=== PATIENT | male | born 1950 | race Caucasian/White ===

== ENCOUNTER 2020-10-04 07:11 | Outpatient (REF) | payer OTHER, SELFPAY ==
[2020-10-04 07:51] LABS: MANUAL DIFF FLAG NO
[2020-10-04 07:54] LABS: Basophils Absolute Auto 0.1 X10*3/uL (0.0-0.2); Basophils Percent Auto 0.9 % (0-2); Eosinophils Absolute Auto 0.3 X10*3/uL (0.0-0.4); Hematocrit 38.7 % (42-52); Hemoglobin 12.8 g/dl (14.0-18.0); Imm Gran Abs Auto 0.02 X10*3/uL (0.00-0.03); Imm Gran Pct Auto 0.3 % (0.0-0.4); Lymphocytes Absolute Auto 1.5 X10*3/uL (1.2-4.9); Mean Corpuscular HGB Conc 33.1 g/dl (31.0-36.0); Mean Corpuscular Hemoglobin 30.5 pg (27.0-33.0); Mean Corpuscular Volume 92.4 fL (80-98); Mean Platelet Volume 10.8 fL (9.4-12.4); Monocytes Absolute Auto 0.9 X10*3/uL (0.1-1.2); Monocytes Percent Auto 12.9 % (2-11); Neutrophils Absolute Auto 4.2 X10*3/uL (2.0-8.3); Neutrophils Percent Auto 59.9 % (45-73); Platelet Count 238 X10*3/uL (160-400); Red Blood Count 4.19 X10*6/uL (4.60-5.80); Red Cell Distribution Width 18.4 % (11.0-16.0)
[2020-10-04 07:57] LABS: Glucose Urine UA NEG (NEG); Leukocyte Esterase Urine NEG (NEG); Nitrite Urine NEG (NEG); PH 7.5 (5.0-8.0); Urine Blood NEG (NEG); Urine Ketones NEG (NEG); Urine Protein NEG (NEG-TRACE)
[2020-10-04 08:00] LABS: Appearance Urine CLEAR; Color Urine YELLOW
[2020-10-04 08:18] LABS: Alanine Aminotransferase 19 U/L (0-40); Alkaline Phosphatase 50 U/L (39-117); Anion Gap 12 (12-20); Aspartate Amino Transferase 26 U/L (5-37); Bilirubin Total 0.8 mg/dL (0.0-1.0); Blood Urea Nitrogen 14 mg/dL (9-16); Calcium 8.8 mg/dL (8.4-10.2); Carbon Dioxide 26 mmol/L (22-29); Chloride 103 mmol/L (96-108); Cholesterol 137 mg/dL; Estimated Glomerular Filt Rate > 60; Glucose Fasting 83 mg/dL (60-99); HDL Cholesterol 35 mg/dL; Iron 82 mcg/dL (45-160); LDL Cholesterol Calculated 79 mg/dl; Percent Iron Saturation 22 % (15-50); Sodium 136 mmol/L (135-145); Total Iron Binding Capacity 371 mcg/dL (228-428); Total Protein 6.7 g/dL (6.5-8.0); Triglycerides 118 mg/dL; Unsaturated Iron Binding 289 ug/dL
[2020-10-04 08:41] LABS: TSH reflex Free T4 2.36 mIU/mL (0.32-4.0); Vitamin D 25-OH Total 26.4 ng/mL (>30)
== END 2020-10-04 07:12 | disposition home or self-care (01) ==
LOC: HO.LAB 07:11
PROVIDERS: Visit Provider Internal Medicine
DX: E78.00 Pure hypercholesterolemia, unspecified (principal); I10 Essential (primary) hypertension; D50.9 Iron deficiency anemia, unspecified; I48.91 Unspecified atrial fibrillation; K21.9 Gastro-esophageal reflux disease without esophagitis; E55.9 Vitamin D deficiency, unspecified; E66.01 Morbid (severe) obesity due to excess calories
CPT/HCPCS: 36415; 80053; 80061; 81003; 82306; 83540; 84443; 85025

== ENCOUNTER 2021-03-14 07:12 | Outpatient (REF) | payer OTHER, SELFPAY ==
[2021-03-14 08:16] LABS: MANUAL DIFF FLAG NO
[2021-03-14 08:20] LABS: Basophils Absolute Auto 0.1 X10*3/uL (0.0-0.2); Basophils Percent Auto 1.3 % (0-2); Eosinophils Absolute Auto 0.3 X10*3/uL (0.0-0.4); Eosinophils Percent Auto 3.9 % (0-4); Hematocrit 43.2 % (42-52); Hemoglobin 14.2 g/dl (14.0-18.0); Imm Gran Abs Auto 0.04 X10*3/uL (0.00-0.03); Imm Gran Pct Auto 0.6 % (0.0-0.4); Lymphocytes Absolute Auto 1.3 X10*3/uL (1.2-4.9); Lymphocytes Percent Auto 20.5 % (20-40); Mean Corpuscular HGB Conc 32.9 g/dl (31.0-36.0); Mean Corpuscular Hemoglobin 31.1 pg (27.0-33.0); Mean Corpuscular Volume 94.7 fL (80-98); Mean Platelet Volume 11.1 fL (9.4-12.4); Monocytes Absolute Auto 0.7 X10*3/uL (0.1-1.2); Neutrophils Percent Auto 62.7 % (45-73); Platelet Count 248 X10*3/uL (160-400); Red Blood Count 4.56 X10*6/uL (4.60-5.80); Red Cell Distribution Width 14.3 % (11.0-16.0); White Blood Count 6.4 X10*3/uL (4.8-10.8)
[2021-03-14 08:41] LABS: Alanine Aminotransferase 18 U/L (0-40); Albumin Level 4.2 g/dL (3.5-5.0); Alkaline Phosphatase 47 U/L (39-117); Anion Gap 15 (12-20); Aspartate Amino Transferase 30 U/L (5-37); Bilirubin Total 0.9 mg/dL (0.0-1.0); Blood Urea Nitrogen 12 mg/dL (9-16); Calcium 9.2 mg/dL (8.4-10.2); Carbon Dioxide 26 mmol/L (22-29); Chloride 105 mmol/L (96-108); Cholesterol 163 mg/dL; Estimated Glomerular Filt Rate > 60; Glucose Fasting 91 mg/dL (60-99); HDL Cholesterol 40 mg/dL; Iron 88 mcg/dL (45-160); LDL Cholesterol Calculated 90 mg/dl; Percent Iron Saturation 22 % (15-50); Potassium 4.8 mmol/L (3.3-5.1); Sodium 141 mmol/L (135-145); Total Iron Binding Capacity 392 mcg/dL (228-428); Total Protein 7.2 g/dL (6.5-8.0); Triglycerides 166 mg/dL; Unsaturated Iron Binding 304 ug/dL
[2021-03-14 08:41] LABS: Glucose Urine UA NEG (NEG); Leukocyte Esterase Urine NEG (NEG); Nitrite Urine NEG (NEG); PH 6.5 (5.0-8.0); Urine Blood NEG (NEG); Urine Ketones NEG (NEG); Urine Protein NEG (NEG-TRACE)
[2021-03-14 08:47] LABS: Appearance Urine CLEAR; Color Urine YELLOW
[2021-03-14 09:04] LABS: TSH reflex Free T4 1.66 uIU/mL (0.32-4.0); Vitamin D 25-OH Total 34.7 ng/mL (>30)
== END 2021-03-14 07:13 | disposition home or self-care (01) ==
LOC: HO.LAB 07:12
PROVIDERS: PCP Internal Medicine; Visit Provider Internal Medicine
DX: I10 Essential (primary) hypertension (principal); I48.0 Paroxysmal atrial fibrillation; E66.9 Obesity, unspecified; E78.00 Pure hypercholesterolemia, unspecified; D50.9 Iron deficiency anemia, unspecified; K21.9 Gastro-esophageal reflux disease without esophagitis; E55.9 Vitamin D deficiency, unspecified
CPT/HCPCS: 36415; 80053; 80061; 81003; 82306; 83540; 84443; 85025

== ENCOUNTER 2021-07-25 07:34 | Outpatient (REF) | payer OTHER, SELFPAY ==
[2021-07-25 08:16] LABS: MANUAL DIFF FLAG NO
[2021-07-25 08:27] LABS: Basophils Absolute Auto 0.1 X10*3/uL (0.0-0.2); Basophils Percent Auto 0.9 % (0-2); Eosinophils Absolute Auto 0.3 X10*3/uL (0.0-0.4); Eosinophils Percent Auto 3.5 % (0-4); Hematocrit 40.7 % (42-52); Hemoglobin 13.3 g/dl (14.0-18.0); Imm Gran Abs Auto 0.05 X10*3/uL (0.00-0.03); Imm Gran Pct Auto 0.7 % (0.0-0.4); Lymphocytes Absolute Auto 1.6 X10*3/uL (1.2-4.9); Mean Corpuscular HGB Conc 32.7 g/dl (31.0-36.0); Mean Corpuscular Hemoglobin 31.2 pg (27.0-33.0); Mean Corpuscular Volume 95.5 fL (80-98); Mean Platelet Volume 11.1 fL (9.4-12.4); Monocytes Percent Auto 13.6 % (2-11); Neutrophils Absolute Auto 4.4 X10*3/uL (2.0-8.3); Neutrophils Percent Auto 60.3 % (45-73); Platelet Count 227 X10*3/uL (160-400); Red Blood Count 4.26 X10*6/uL (4.60-5.80); White Blood Count 7.4 X10*3/uL (4.8-10.8)
[2021-07-25 08:49] LABS: Alanine Aminotransferase 16 U/L (0-40); Alkaline Phosphatase 43 U/L (39-117); Anion Gap 12 (12-20); Aspartate Amino Transferase 23 U/L (5-37); Bilirubin Total 0.5 mg/dL (0.0-1.0); Blood Urea Nitrogen 12 mg/dL (9-16); Calcium 9.3 mg/dL (8.4-10.2); Carbon Dioxide 26 mmol/L (22-29); Chloride 107 mmol/L (96-108); Cholesterol 154 mg/dL; Estimated Glomerular Filt Rate > 60; Glucose Fasting 91 mg/dL (60-99); HDL Cholesterol 39 mg/dL; LDL Cholesterol Calculated 75 mg/dl; Potassium 5.4 mmol/L (3.3-5.1); Sodium 140 mmol/L (135-145); Total Protein 6.7 g/dL (6.5-8.0); Triglycerides 202 mg/dL
[2021-07-25 09:12] LABS: TSH reflex Free T4 2.88 uIU/mL (0.32-4.0); Vitamin D 25-OH Total 30.3 ng/mL (>30)
[2021-07-25 09:47] LABS: Appearance Urine CLEAR; Color Urine YELLOW; Glucose Urine UA NEG (NEG); Leukocyte Esterase Urine NEG (NEG); Nitrite Urine NEG (NEG); Specific Gravity - Urine 1.015 (1.005-1.025); Urine Blood NEG (NEG); Urine Ketones NEG (NEG); Urine Protein NEG (NEG-TRACE)
== END 2021-07-25 07:35 | disposition home or self-care (01) ==
LOC: HO.LAB 07:34
PROVIDERS: PCP Internal Medicine; Visit Provider Internal Medicine
DX: E55.9 Vitamin D deficiency, unspecified (principal); I10 Essential (primary) hypertension; E78.00 Pure hypercholesterolemia, unspecified; E66.9 Obesity, unspecified; I48.0 Paroxysmal atrial fibrillation; K21.9 Gastro-esophageal reflux disease without esophagitis; D50.8 Other iron deficiency anemias
CPT/HCPCS: 36415; 80053; 80061; 81003; 82306; 84443; 85025

== ENCOUNTER 2021-11-21 07:23 | Outpatient (REF) | payer OTHER, SELFPAY ==
[2021-11-21 07:34] LABS: MANUAL DIFF FLAG NO
[2021-11-21 08:20] LABS: Basophils Absolute Auto 0.1 X10*3/uL (0.0-0.2); Basophils Percent Auto 0.8 % (0-2); Eosinophils Absolute Auto 0.2 X10*3/uL (0.0-0.4); Eosinophils Percent Auto 2.2 % (0-4); Hematocrit 39.1 % (42.0-52.0); Hemoglobin 12.6 g/dl (14.0-18.0); Imm Gran Abs Auto 0.07 X10*3/uL (0.00-0.03); Imm Gran Pct Auto 0.8 % (0.0-0.4); Lymphocytes Absolute Auto 1.3 X10*3/uL (1.2-4.9); Lymphocytes Percent Auto 15.6 % (20-40); Mean Corpuscular HGB Conc 32.2 g/dl (31.0-36.0); Mean Corpuscular Volume 96.1 fL (80.0-98.0); Mean Platelet Volume 11.1 fL (9.4-12.4); Monocytes Absolute Auto 0.9 X10*3/uL (0.1-1.2); Monocytes Percent Auto 10.4 % (2-11); Neutrophils Percent Auto 70.2 % (45-73); Platelet Count 247 X10*3/uL (160-400); Red Blood Count 4.07 X10*6/uL (4.60-5.80); Red Cell Distribution Width 15.3 % (11.0-16.0); White Blood Count 8.5 X10*3/uL (4.8-10.8)
[2021-11-21 08:40] LABS: Alanine Aminotransferase 17 U/L (0-40); Albumin Level 3.8 g/dL (3.5-5.0); Alkaline Phosphatase 43 U/L (39-117); Anion Gap 13 (12-20); Aspartate Amino Transferase 21 U/L (5-37); Bilirubin Total 0.7 mg/dL (0.0-1.0); Blood Urea Nitrogen 14 mg/dL (9-16); Calcium 9.2 mg/dL (8.4-10.2); Carbon Dioxide 26 mmol/L (22-29); Chloride 104 mmol/L (96-108); Cholesterol 159 mg/dL; Estimated Glomerular Filt Rate > 60; Glucose Fasting 89 mg/dL (60-99); HDL Cholesterol 42 mg/dL; LDL Cholesterol Calculated 91 mg/dl; Potassium 4.9 mmol/L (3.3-5.1); Sodium 138 mmol/L (135-145); Total Protein 6.6 g/dL (6.5-8.0); Triglycerides 133 mg/dL
[2021-11-21 09:04] LABS: TSH reflex Free T4 2.97 uIU/mL (0.32-4.0); Vitamin D 25-OH Total 32.3 ng/mL (>30)
[2021-11-21 09:10] LABS: Appearance Urine CLEAR; Color Urine YELLOW; Glucose Urine UA NEG (NEG); Leukocyte Esterase Urine NEG (NEG); Nitrite Urine NEG (NEG); PH 6.5 (5.0-8.0); Urine Blood NEG (NEG); Urine Ketones NEG (NEG); Urine Protein NEG (NEG-TRACE)
== END 2021-11-21 07:24 | disposition home or self-care (01) ==
LOC: HO.LAB 07:23
PROVIDERS: Visit Provider Internal Medicine
DX: E55.9 Vitamin D deficiency, unspecified (principal); I10 Essential (primary) hypertension; E78.00 Pure hypercholesterolemia, unspecified
CPT/HCPCS: 36415; 80053; 80061; 81003; 82306; 84443; 85025

== ENCOUNTER 2022-03-20 08:18 | Outpatient (REF) | payer OTHER, SELFPAY ==
[2022-03-20 08:39] LABS: MANUAL DIFF FLAG NO
[2022-03-20 09:21] LABS: Appearance Urine CLEAR; Color Urine YELLOW; Glucose Urine UA NEG (NEG); Leukocyte Esterase Urine NEG (NEG); Nitrite Urine NEG (NEG); Specific Gravity - Urine 1.015 (1.005-1.025); Urine Blood NEG (NEG); Urine Ketones NEG (NEG); Urine Protein NEG (NEG-TRACE)
[2022-03-20 09:24] LABS: Basophils Absolute Auto 0.1 X10*3/uL (0.0-0.2); Basophils Percent Auto 1.1 % (0-2); Eosinophils Absolute Auto 0.2 X10*3/uL (0.0-0.4); Eosinophils Percent Auto 3.9 % (0-4); Hematocrit 39.2 % (42.0-52.0); Hemoglobin 12.7 g/dl (14.0-18.0); Imm Gran Abs Auto 0.03 X10*3/uL (0.00-0.03); Imm Gran Pct Auto 0.5 % (0.0-0.4); Lymphocytes Absolute Auto 1.3 X10*3/uL (1.2-4.9); Lymphocytes Percent Auto 23.5 % (20-40); Mean Corpuscular HGB Conc 32.4 g/dl (31.0-36.0); Mean Corpuscular Volume 92.5 fL (80.0-98.0); Mean Platelet Volume 11.7 fL (9.4-12.4); Monocytes Absolute Auto 0.8 X10*3/uL (0.1-1.2); Monocytes Percent Auto 13.9 % (2-11); Neutrophils Absolute Auto 3.3 x10*3/uL (2.0-8.3); Neutrophils Percent Auto 57.1 % (45-73); Platelet Count 214 X10*3/uL (160-400); Red Blood Count 4.24 X10*6/uL (4.60-5.80); Red Cell Distribution Width 15.8 % (11.0-16.0); White Blood Count 5.7 X10*3/uL (4.8-10.8)
[2022-03-20 09:39] LABS: Alanine Aminotransferase 20 U/L (0-40); Albumin Level 3.8 g/dL (3.5-5.0); Alkaline Phosphatase 43 U/L (39-117); Anion Gap 13 (12-20); Aspartate Amino Transferase 24 U/L (5-37); Bilirubin Total 0.7 mg/dL (0.0-1.0); Blood Urea Nitrogen 12 mg/dL (9-16); Carbon Dioxide 24 mmol/L (22-29); Chloride 107 mmol/L (96-108); Cholesterol 150 mg/dL; Estimated Glomerular Filt Rate > 60; Glucose Fasting 91 mg/dL (60-99); HDL Cholesterol 37 mg/dL; LDL Cholesterol Calculated 80 mg/dl; Potassium 4.8 mmol/L (3.3-5.1); Sodium 139 mmol/L (135-145); Total Protein 6.8 g/dL (6.5-8.0); Triglycerides 165 mg/dL
[2022-03-20 09:58] LABS: TSH reflex Free T4 2.72 uIU/mL (0.32-4.0); Vitamin D 25-OH Total 33.3 ng/mL (>30)
== END 2022-03-20 08:19 | disposition home or self-care (01) ==
LOC: HO.LAB 08:18
PROVIDERS: PCP Internal Medicine; Visit Provider Internal Medicine
DX: E78.00 Pure hypercholesterolemia, unspecified (principal); E55.9 Vitamin D deficiency, unspecified; I10 Essential (primary) hypertension
CPT/HCPCS: 36415; 80053; 80061; 81003; 82306; 84443; 85025

== ENCOUNTER 2022-08-21 06:57 | Outpatient (REF) | payer OTHER, SELFPAY ==
[2022-08-21 07:10] LABS: MANUAL DIFF FLAG NO
[2022-08-21 08:25] LABS: Basophils Absolute Auto 0.1 X10*3/uL (0.0-0.2); Basophils Percent Auto 1.2 % (0-2); Eosinophils Absolute Auto 0.2 X10*3/uL (0.0-0.4); Eosinophils Percent Auto 3.5 % (0-4); Imm Gran Abs Auto 0.04 X10*3/uL (0.00-0.03); Imm Gran Pct Auto 0.7 % (0.0-0.4); Lymphocytes Absolute Auto 1.2 X10*3/uL (1.2-4.9); Lymphocytes Percent Auto 21.2 % (20-40); Mean Corpuscular HGB Conc 32.4 g/dl (31.0-36.0); Mean Corpuscular Hemoglobin 29.5 pg (27.0-33.0); Mean Corpuscular Volume 90.9 fL (80.0-98.0); Mean Platelet Volume 10.9 fL (9.4-12.4); Monocytes Absolute Auto 0.8 X10*3/uL (0.1-1.2); Monocytes Percent Auto 13.6 % (2-11); Neutrophils Absolute Auto 3.4 x10*3/uL (2.0-8.3); Neutrophils Percent Auto 59.8 % (45-73); Platelet Count 250 X10*3/uL (160-400); Red Blood Count 4.07 X10*6/uL (4.60-5.80); Red Cell Distribution Width 15.7 % (11.0-16.0); White Blood Count 5.7 X10*3/uL (4.8-10.8)
[2022-08-21 09:14] LABS: Alanine Aminotransferase 15 U/L (0-40); Albumin Level 3.9 g/dL (3.5-5.0); Alkaline Phosphatase 44 U/L (39-117); Anion Gap 14 (12-20); Aspartate Amino Transferase 21 U/L (5-37); Bilirubin Total 0.5 mg/dL (0.0-1.0); Blood Urea Nitrogen 13 mg/dL (9-16); Calcium 8.8 mg/dL (8.4-10.2); Carbon Dioxide 26 mmol/L (22-29); Chloride 105 mmol/L (96-108); Cholesterol 150 mg/dL; Estimated Glomerular Filt Rate > 60; Glucose Fasting 83 mg/dL (60-99); HDL Cholesterol 44 mg/dL; LDL Cholesterol Calculated 75 mg/dl; Potassium 5.3 mmol/L (3.3-5.1); Sodium 140 mmol/L (135-145); Total Protein 6.7 g/dL (6.5-8.0); Triglycerides 155 mg/dL
[2022-08-21 09:41] LABS: Vitamin D 25-OH Total 36.6 ng/mL (>30)
[2022-08-21 10:05] LABS: Appearance Urine Clear; Color Urine Yellow; Glucose Urine UA Negative (Negative); Leukocyte Esterase Urine Negative (Negative); Nitrite Urine Negative (Negative); Urine Blood Negative (Negative); Urine Ketones Negative (Negative); Urine Protein Negative (Neg-Trace)
== END 2022-08-21 06:58 | disposition home or self-care (01) ==
LOC: HO.LAB 06:57
PROVIDERS: Visit Provider Internal Medicine
DX: I10 Essential (primary) hypertension (principal); E78.00 Pure hypercholesterolemia, unspecified; E55.9 Vitamin D deficiency, unspecified
CPT/HCPCS: 36415; 80053; 80061; 81003; 82306; 84443; 85025

== ENCOUNTER 2022-12-27 07:06 | Outpatient (REF) | payer OTHER, SELFPAY ==
[2022-12-27 11:28] LABS: MANUAL DIFF FLAG NO
[2022-12-27 11:48] LABS: Basophils Absolute Auto 0.1 X10*3/uL (0.0-0.2); Basophils Percent Auto 0.8 % (0-2); Eosinophils Absolute Auto 0.3 X10*3/uL (0.0-0.4); Hematocrit 38.8 % (42.0-52.0); Hemoglobin 12.7 g/dl (14.0-18.0); Imm Gran Abs Auto 0.04 X10*3/uL (0.00-0.03); Imm Gran Pct Auto 0.5 % (0.0-0.4); Lymphocytes Absolute Auto 1.2 X10*3/uL (1.2-4.9); Mean Corpuscular HGB Conc 32.7 g/dl (31.0-36.0); Mean Corpuscular Hemoglobin 30.8 pg (27.0-33.0); Mean Corpuscular Volume 94.2 fL (80.0-98.0); Mean Platelet Volume 11.6 fL (9.4-12.4); Monocytes Percent Auto 11.5 % (2-11); Neutrophils Absolute Auto 5.8 x10*3/uL (2.0-8.3); Neutrophils Percent Auto 70.2 % (45-73); Platelet Count 293 X10*3/uL (160-400); Red Blood Count 4.12 X10*6/uL (4.60-5.80); Red Cell Distribution Width 15.1 % (11.0-16.0); White Blood Count 8.3 X10*3/uL (4.8-10.8)
[2022-12-27 12:08] LABS: Alanine Aminotransferase 15 U/L (0-40); Albumin Level 3.8 g/dL (3.5-5.0); Alkaline Phosphatase 43 U/L (39-117); Anion Gap 15 (12-20); Aspartate Amino Transferase 19 U/L (5-37); Bilirubin Total 0.7 mg/dL (0.0-1.0); Blood Urea Nitrogen 16 mg/dL (9-16); Calcium 9.1 mg/dL (8.4-10.2); Carbon Dioxide 26 mmol/L (22-29); Chloride 105 mmol/L (96-108); Cholesterol 168 mg/dL; Estimated Glomerular Filt Rate > 60; Glucose Fasting 96 mg/dL (60-99); HDL Cholesterol 44 mg/dL; LDL Cholesterol Calculated 93 mg/dl; Potassium 5.2 mmol/L (3.3-5.1); Sodium 141 mmol/L (135-145); Total Protein 6.6 g/dL (6.5-8.0); Triglycerides 158 mg/dL
[2022-12-27 12:29] LABS: TSH reflex Free T4 3.64 uIU/mL (0.32-4.0); Vitamin D 25-OH Total 35.3 ng/mL (>30)
== END 2022-12-27 07:07 | disposition home or self-care (01) ==
LOC: HO.HMGCLDS 07:06
PROVIDERS: Visit Provider Internal Medicine
DX: I10 Essential (primary) hypertension (principal); E55.9 Vitamin D deficiency, unspecified; E78.00 Pure hypercholesterolemia, unspecified
CPT/HCPCS: 36415; 80053; 80061; 82306; 84443; 85025

== ENCOUNTER 2023-06-11 07:04 | Outpatient (REF) | payer OTHER, SELFPAY ==
[2023-06-11 07:22] LABS: MANUAL DIFF FLAG NO
[2023-06-11 07:50] LABS: Basophils Absolute Auto 0.1 X10*3/uL (0.0-0.2); Basophils Percent Auto 1.5 % (0-2); Eosinophils Absolute Auto 0.2 X10*3/uL (0.0-0.4); Eosinophils Percent Auto 3.1 % (0-4); Hematocrit 39.3 % (42.0-52.0); Hemoglobin 12.7 g/dl (14.0-18.0); Imm Gran Abs Auto 0.02 X10*3/uL (0.00-0.03); Imm Gran Pct Auto 0.3 % (0.0-0.4); Lymphocytes Absolute Auto 1.2 X10*3/uL (1.2-4.9); Lymphocytes Percent Auto 17.7 % (20-40); Mean Corpuscular HGB Conc 32.3 g/dl (31.0-36.0); Mean Corpuscular Hemoglobin 30.6 pg (27.0-33.0); Mean Corpuscular Volume 94.7 fL (80.0-98.0); Monocytes Absolute Auto 0.9 X10*3/uL (0.1-1.2); Monocytes Percent Auto 14.2 % (2-11); Neutrophils Absolute Auto 4.1 x10*3/uL (2.0-8.3); Neutrophils Percent Auto 63.2 % (45-73); Platelet Count 244 X10*3/uL (160-400); Red Blood Count 4.15 X10*6/uL (4.60-5.80); Red Cell Distribution Width 14.8 % (11.0-16.0); White Blood Count 6.5 X10*3/uL (4.8-10.8)
[2023-06-11 08:24] LABS: Alanine Aminotransferase 17 U/L (0-40); Albumin Level 3.9 g/dL (3.5-5.0); Alkaline Phosphatase 42 U/L (39-117); Anion Gap 17 (12-20); Aspartate Amino Transferase 26 U/L (5-37); Bilirubin Total 0.7 mg/dL (0.0-1.0); Blood Urea Nitrogen 13 mg/dL (9-16); Calcium 9.3 mg/dL (8.4-10.2); Carbon Dioxide 22 mmol/L (22-29); Chloride 105 mmol/L (96-108); Cholesterol 150 mg/dL; Estimated Glomerular Filt Rate > 60; Glucose Fasting 92 mg/dL (60-99); HDL Cholesterol 37 mg/dL; LDL Cholesterol Calculated 78 mg/dl; Sodium 139 mmol/L (135-145); Total Protein 7.2 g/dL (6.5-8.0); Triglycerides 178 mg/dL
[2023-06-11 08:40] LABS: TSH reflex Free T4 3.26 uIU/mL (0.32-4.0); Vitamin D 25-OH Total 42.8 ng/mL (>30)
[2023-06-11 08:46] LABS: Appearance Urine Clear; Color Urine Yellow; Glucose Urine UA Negative (Negative); Leukocyte Esterase Urine Negative (Negative); Nitrite Urine Negative (Negative); Specific Gravity - Urine 1.015 (1.005-1.025); Urine Blood Negative (Negative); Urine Ketones Negative (Negative); Urine Protein Negative (Neg-Trace)
== END 2023-06-11 07:05 | disposition home or self-care (01) ==
LOC: HO.LAB 07:04
PROVIDERS: PCP Internal Medicine; Visit Provider Internal Medicine
DX: E78.00 Pure hypercholesterolemia, unspecified (principal); R30.0 Dysuria; E55.9 Vitamin D deficiency, unspecified; I10 Essential (primary) hypertension
CPT/HCPCS: 36415; 80053; 80061; 81003; 82306; 84443; 85025

== ENCOUNTER 2023-06-16 09:49 | Outpatient (AMB) | payer OTHER, SELFPAY ==
[2023-06-16 09:59] VITALS: BP 118/68; PULSE 63; O2SAT 98; BMI 39.9
--- NOTE | 2023-06-16 09:59 | MHC.PC.OV ---
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 Accompanied by: Self / Same As Patient Allergies No Known Allergies Allergy (Verified 06/16/23 10:38) Medication List - Last Reconciled 06/16/23 by Ronal Agosto MD atorvastatin 10 mg PO DAILY ciclopirox 0.77% 1 appl topical BID PRN diltiazem HCl 120 mg PO DAILY escitalopram oxalate 10 mg PO DAILY fenofibrate nanocrystallized 145 mg PO DAILY 90 days furosemide 20 mg PO DAILY lorazepam 0.5 mg PO BID PRN 30 days losartan 100 mg PO DAILY omeprazole 20 mg PO DAILY rivaroxaban (Xarelto) 20 mg PO DAILY sildenafil 50 mg PO DAILY PRN sotalol 120 mg PO BID 30 days zolpidem 10 mg PO BEDTIME PRN 30 days Tobacco use date assessed: 06/16/23 Fall risk assessment: No Falls in past year Last assessed Fall Risk: 06/16/23 Dental Screening Dental Screen Date: 06/16/23 Did you have a dental visit in the last 12 months?: Yes Did you have a dental problem in the last 6 months where you did not have access to dental care?: No Was dental information given to patient?: Patient has dentist HPI PAF, hyperlipidemia, HTN, OA HPI Details Patient comes in today for his follow up visit States that he feels okay He denies any headaches or dizziness Denies any chest pains, no SOB No nausea/vomiting, no abdominal pain No change in bowel habits noted Had his follow up labs done last week - to discuss his results [facility] Medical History Anxiety Benign essential hypertension Depression GERD (gastroesophageal reflux disease) GERD without esophagitis Insomnia Iron deficiency anemia Obesity (BMI 30-39.9) Paroxysmal atrial fibrillation Pure hypercholesterolemia Vitamin D deficiency Surgical History H/O right knee surgery History of arthroscopic surgery of shoulder (~02/01/22) History of colonoscopy History of shoulder surgery Family History Father Lung cancer Mother Afib Social History Housing: House Alcohol intake: current Alcohol intake frequency: 3 or more drinks per day Alcohol type: beer Patient Tobacco Use Status: Former Tobacco user Second Hand Smoke Exposure: Yes service: No Current occupational status: employed Cognitive needs: No Hearing needs: No Vision needs: No Questionnaire PHQ-9 Over the last 2 weeks, how often have you been bothered by any of the following problems? 1. Little interest or pleasure in doing things: not at all 2. Feeling down, depressed, or hopeless: not at all 3. Trouble falling or staying asleep, or sleeping too much: not at all 4. Feeling tired or having little energy: not at all 5. Poor appetite or overeating: not at all 6. Feeling bad about yourself - or that you are a failure or have let yourself or your family down: not at all 7. Trouble concentrating on things, such as reading the newspaper or watching television: not at all 8. Moving or speaking so slowly that other people could have noticed. Or the opposite - being so fidgety or restless that you have been moving around a lot more than usual: not at all 9. Thoughts that you would be better off or of hurting yourself in some way: not at all Total score: 0 Depression Screening Interpretation: Negative 55269 - PHQ-9 Billing: Yes Source: Developed by Drs. Rasta Ramachandran, Gisela Booth, Carlos Eduardo Delgado and colleagues, with an educational alvaro from [employer]. Thrive Questionnaire Date Thrive assessed: 06/16/23 I am a: Patient What is your living situation today?: I have a steady place to live Within the past 12 months, did the food you bought not last and you didn't have the money to get more?: Never true Within the past 12 months, did you worry whether your food would run out before you got money to buy more?: Never true Do you have trouble paying for medicines?: No Do you have trouble getting transportation to medical appointments?: No Do you have trouble paying your heating and electricity bill?: No Do you have trouble taking care of your child, family member or friend?: No Do you have trouble with day-to-day activities such as bathing, preparing meals, shopping, managing finances, etc.?: No Are you currently unemployed and looking for a job?: No Are you interested in more education?: No Please select the resources that you would like help with: None Currently or been in a relationship where the following occur: no concerns reported AUDIT C Alcohol Use Questionnaire (AUDIT-C) 1. How often do you have a drink containing alcohol?: 4 or more times a week 2. How many drinks containing alcohol do you have on a typical day when you are drinking?: 1 or 2 3. How often do you have six or more drinks on one occasion?: Never Total Score: 4 Score Reviewed/Action Taken: Yes ALLA-7 AMB Questionnaire ALLA-7 Date ALLA - 7 assessed: 06/16/23 Feeling nervous, anxious, or on edge: 0 = Not at all Not being able to stop or control worryin = Not at all Worrying too much about different things: 0 = Not at all Trouble relaxin = Not at all Being so restless that it is hard to sit still: 0 = Not at all Becoming easily annoyed or irritable: 0 = Not at all Feeling afraid as if something awful might happen: 0 = Not at all Total ALLA-7 score (0-4 normal; 5-9 mild; 10-14 moderate; 15-21 severe): 0 Source: Developed by Drs. Rasta Ramachandran, Gisela Booth, Carlos Eduardo Delgado and colleagues, with an educational alvaro from [employer]. ALLA-7 Assessment Billing ALLA-7 Assessment Tool: ALLA-7 Assessment 05570 Review of Systems Const Denies fatigue, Denies fever(s) and Denies headache(s) ENT Denies dysphagia, Denies dizziness, Denies otalgia, Denies headache(s) and Denies sore throat Card Denies chest pain, Denies palpitations and Denies dyspnea Resp Denies chest congestion, Denies cough, Denies dyspnea and Denies wheezing GI Denies abdominal pain, Denies constipation, Denies dysphagia, Denies heartburn, Denies diarrhea, Denies nausea and Denies vomiting Reports erectile dysfunction (lately), Denies dysuria, Denies nocturia and Denies urinary frequency Musc Denies arthralgias (right knee pain has improved with arthroscopic surgery a few months ago) Skin/Breast Denies rash Neuro Denies dizziness and Denies headache(s) Endo Denies fatigue and Denies palpitations Aller/Immun Denies wheezing Physical exam (Primary Care) Vital Signs: Last Vital Signs Pulse 63 06/16/23 09:59 BP 118/68 06/16/23 09:59 Pulse Ox 98 06/16/23 09:59 Oxygen Delivery Method Room Air 06/16/23 09:59 BMI result Body Mass Index 39.9 Tobacco/Smoking Status: Tobacco use Status Tobacco use date assessed 06/16/23 06/16/23 10:05 Patient Tobacco Use Status Former Tobacco user 06/16/23 10:05 PHQ-9: PHQ-9 Score PHQ-9: Total score 0 06/16/23 10:32 Depression Screening Interpretation: Negative Thrive Assessment: Date of Thrive Assessment Date Thrive assessed 06/16/23 06/16/23 10:05 Currently or been in a relationship where the following occur: no concerns reported Const General: no acute distress and alert HENMT Ears: TM's normal bilaterally and EAC's normal Throat: Yes posterior oropharynx normal and Yes tonsils normal (no TP congestion noted) Neck Neck: Yes no lymphadenopathy and Yes supple Resp Auscultation: clear to auscultation bilaterally, no rales and no wheezes Cardio Rate: regular rate Rhythm: regular rhythm Heart sounds: no murmurs GI Palpation (GI): Soft to palpation and nontender Auscultation: normal bowel sounds Extrem General: Yes no clubbing, cyanosis or edema Right lower extremity: knee Details: tenderness (minimal) Location: of the medial joint line; no swelling Results Reviewed Results Reviewed: Laboratory Tests 06/11/23 06/11/23 06/11/23 07:15 07:21 07:21 WBC 6.5 Hgb 12.7 L Hct 39.3 L Plt Count 244 Sodium 139 Potassium 5.0 Creatinine 0.86 Estimated GFR > 60 Fasting Glucose 92 Calcium 9.3 AST 26 ALT 17 Triglycerides 178 Cholesterol 150 LDL Cholesterol, Calc 78 HDL Cholesterol 37 25-OH Vitamin D Total 42.8 TSH 3.26 Ur Specific [place] 1.015 Urine Protein Negative Urine Glucose (UA) Negative Urine Blood Negative Assessment and Plan Assessment & Plan (1) Pure hypercholesterolemia: Code(s): E78.00 - Pure hypercholesterolemia, unspecified Plan: Results of his labs done last week reviewed and discussed with patient - lipids have improved from previous Reinforced low cholesterol diet Continue Atorvastatin 20 mg QD and Fenofibrate 145 mg QD Will recheck his labs in 4 months for follow up (2) Benign essential hypertension: Code(s): I10 - Essential (primary) hypertension Plan: Reinforced low sodium diet - goal is systolic BP of at least 130 mm or less Continue Losartan 50 mg QD; is also on Diltiazem ER 120 mg QD (helps with both his HTN and PAF) (3) Paroxysmal atrial fibrillation: Comment: S/P cardioversion with Dr. Chen at [facility] Code(s): I48.0 - Paroxysmal atrial fibrillation Plan: Patient currently remains in sinus rhythm on Diltiazem ER 120 mg QD Continue Xarelto 20 mg QD for thromboembolism prophylaxis (4) GERD without esophagitis: Code(s): K21.9 - Gastro-esophageal reflux disease without esophagitis Plan: Dietary restrictions reinforced Continue Omeprazole 20 mg QD (5) Right knee meniscal tear: Code(s): S83.206A - Unspecified tear of unspecified meniscus, current injury, right knee, initial encounter Qualifiers: Encounter type: sequela Meniscus of knee: medial Meniscus tear of knee type: unspecified type Tear current or old: current Qualified Code(s): S83.241S - Other tear of medial meniscus, current injury, right knee, sequela Plan: S/P arthroscopic meniscal surgery / repair on 09/08/2022 with significant improvement of his knee symptoms Follow up with [facility] as scheduled (6) Vitamin D deficiency: Code(s): E55.9 - Vitamin D deficiency, unspecified Plan: Corrected - continue Vitamin D3 2000 units QD (7) Iron deficiency anemia: Code(s): D50.9 - Iron deficiency anemia, unspecified Qualifiers: Iron deficiency anemia type: inadequate dietary iron intake Qualified Code(s): D50.8 - Other iron deficiency anemias Plan: Continue Feosol 200 mg QD Will continue to monitor his CBC regularly - advised that he is still slightly anemic but it does not appear to be due to iron deficiency - may be more likely to his being on oral anticoagulant (8) Erectile dysfunction: Code(s): N52.9 - Male erectile dysfunction, unspecified Qualifiers: Erectile dysfunction type: unspecified Qualified Code(s): N52.9 - Male erectile dysfunction, unspecified Plan: Continue Sildenafil 50 mg QD PRN (9) Insomnia: Code(s): G47.00 - Insomnia, unspecified Qualifiers: Insomnia type: unspecified Qualified Code(s): G47.00 - Insomnia, unspecified Plan: Sleep hygiene reinforced Continue Zolpidem 10 mg Q HS PRN (10) Anxiety: Code(s): F41.9 - Anxiety disorder, unspecified Plan: Continue Lorazepam 0.5 mg BID PRN (11) Depression: Code(s): F32.9 - Major depressive disorder, single episode, unspecified Qualifiers: Active/Remission status: currently active Depression Type: major depressive disorder Major depression episode severity: unspecified Major depression recurrence: recurrent Qualified Code(s): F33.9 - Major depressive disorder, recurrent, unspecified Plan: Continue Escitalopram 10 mg QD Has not been seeing psychiatry in a while now - feels that he is doing well on his current Rx and does not need to see psychiatry at this time States that he would like to try coming off his Rx if possible Instructed to try cutting his tablet in half and take 5 mg QD x 10 days, then D/C Advised that if he should start experiencing increasing symptoms of depression and/or anxiety over the next few months, then he should just go back on 10 mg QD; otherwise, if he continues to feel well months after he stops taking his Escitalopram, then he no longer needs to be on it (12) Obesity (BMI 30-39.9): Code(s): E66.9 - Obesity, unspecified Plan: Reinforced diet/exercise as tolerated/lose weight Plan Follow up in 4 months Orders: Orders Comprehensive [place]. Panel Fast 4 Months E78.00 - Pure hypercholesterolemia, unspecified Lipid Panel 4 Months E78.00 - Pure hypercholesterolemia, unspecified TSH reflex Free T4 4 Months E78.00 - Pure hypercholesterolemia, unspecified Vitamin D 25-OH Total 4 Months E55.9 - Vitamin D deficiency, unspecified Complete Blood Count Auto Diff 4 Months I10 - Essential (primary) hypertension UA CC w/rflx Micro + Cult 4 Months R30.0 - Dysuria Coding Level of Care Code Est Pt Level 4 (08334) Diagnoses Pure hypercholesterolemia E78.00 Benign essential hypertension I10 Paroxysmal atrial fibrillation I48.0 GERD without esophagitis K21.9 Right knee meniscal tear S83.241S Encounter type: sequela Meniscus of knee: medial Meniscus tear of knee type: unspecified type Tear current or old: current Vitamin D deficiency E55.9 Iron deficiency anemia D50.8 Iron deficiency anemia type: inadequate dietary iron intake Erectile dysfunction N52.9 Erectile dysfunction type: unspecified Insomnia G47.00 Insomnia type: unspecified Anxiety F41.9 Depression F33.9 Active/Remission status: currently active Depression Type: major depressive disorder Major depression episode severity: unspecified Major depression recurrence: recurrent Obesity (BMI 30-39.9) E66.9 Additional Codes ALLA-7 Assessment Billing - ALLA-7 Assessment Tool: ALLA-7 Assessment 85963 ([id number])
== END 2023-06-16 11:11 | disposition home or self-care (01) ==
PROVIDERS: PCP Internal Medicine; Visit Provider Internal Medicine
DX: E78.00 Pure hypercholesterolemia, unspecified (principal); I10 Essential (primary) hypertension; I48.0 Paroxysmal atrial fibrillation; K21.9 Gastro-esophageal reflux disease without esophagitis
CPT/HCPCS: 99214

== ENCOUNTER 2024-01-14 07:22 | Outpatient (REF) | payer OTHER, SELFPAY ==
[2024-01-14 07:45] LABS: MANUAL DIFF FLAG NO
[2024-01-14 07:55] LABS: Basophils Absolute Auto 0.1 X10*3/uL (0.0-0.2); Basophils Percent Auto 0.8 % (0-2); Eosinophils Absolute Auto 0.2 X10*3/uL (0.0-0.4); Eosinophils Percent Auto 3.9 % (0-4); Hematocrit 35.5 % (42.0-52.0); Hemoglobin 11.4 g/dl (14.0-18.0); Imm Gran Abs Auto 0.02 X10*3/uL (0.00-0.03); Imm Gran Pct Auto 0.3 % (0.0-0.4); Lymphocytes Absolute Auto 1.4 X10*3/uL (1.2-4.9); Lymphocytes Percent Auto 22.4 % (20-40); Mean Corpuscular HGB Conc 32.1 g/dl (31.0-36.0); Mean Corpuscular Hemoglobin 30.2 pg (27.0-33.0); Mean Corpuscular Volume 93.9 fL (80.0-98.0); Mean Platelet Volume 10.4 fL (9.4-12.4); Monocytes Absolute Auto 0.8 X10*3/uL (0.1-1.2); Monocytes Percent Auto 13.5 % (2-11); Neutrophils Absolute Auto 3.7 x10*3/uL (2.0-8.3); Neutrophils Percent Auto 59.1 % (45-73); Platelet Count 254 X10*3/uL (160-400); Red Blood Count 3.78 X10*6/uL (4.60-5.80); Red Cell Distribution Width 14.7 % (11.0-16.0); White Blood Count 6.2 X10*3/uL (4.8-10.8)
[2024-01-14 08:26] LABS: Alanine Aminotransferase 9 U/L (0-40); Albumin Level 3.7 g/dL (3.5-5.0); Alkaline Phosphatase 42 U/L (39-117); Anion Gap 13 (12-20); Aspartate Amino Transferase 18 U/L (5-37); Bilirubin Total 0.6 mg/dL (0.0-1.0); Blood Urea Nitrogen 12 mg/dL (9-16); Calcium 9.2 mg/dL (8.4-10.2); Carbon Dioxide 26 mmol/L (22-29); Chloride 107 mmol/L (96-108); Cholesterol 131 mg/dL (<200); Estimated Glomerular Filt Rate > 60; Glucose Fasting 97 mg/dL (60-99); HDL Cholesterol 35 mg/dL (>40); LDL Cholesterol Calculated 72 mg/dL (<100); Potassium 4.9 mmol/L (3.3-5.1); Sodium 141 mmol/L (135-145); Total Protein 6.8 g/dL (6.5-8.0); Triglycerides 120 mg/dL (<150)
[2024-01-14 08:46] LABS: TSH reflex Free T4 3.02 uIU/mL (0.32-4.0); Vitamin D 25-OH Total 30.8 ng/mL (>30)
[2024-01-14 09:09] LABS: Appearance Urine Clear; Color Urine Yellow; Glucose Urine UA Negative (Negative); Leukocyte Esterase Urine Negative (Negative); Nitrite Urine Negative (Negative); PH 6.5 (5.0-9.0); Urine Blood Negative (Negative); Urine Ketones Negative (Negative); Urine Protein Negative (Neg-Trace)
[2024-01-14 09:16] LABS: Bacteria Urine None Seen (None Seen); Hyaline Casts Urine 0-2 /LPF (0-2); RBC Urine 0-2 /HPF (0-2); Squamous Epithelial Cell Urine 0-2 /HPF (0-2); WBC Urine 0-5 /HPF (0-5)
== END 2024-01-14 07:23 | disposition home or self-care (01) ==
LOC: HO.LAB 07:22
PROVIDERS: PCP Internal Medicine; Visit Provider Internal Medicine
DX: D64.9 Anemia, unspecified (principal); E78.00 Pure hypercholesterolemia, unspecified; R30.0 Dysuria; E55.9 Vitamin D deficiency, unspecified
CPT/HCPCS: 36415; 80053; 80061; 81001; 82306; 84443; 85025

== ENCOUNTER 2024-01-20 09:38 | Outpatient (AMB) | payer OTHER, SELFPAY ==
--- NOTE | 2024-01-20 09:47 | MHC.PC.OV ---
Vital Signs 01/20/24 09:49 Height 5 ft 9 in Weight 281 lb 2 oz BMI 41.5 BP 134/64 Blood Pressure Location Lt brachial Position Sitting Intake Visit Reasons: 4 month follow up, rescheduled from 11/29 Intake Note: Patient is here to follow up on PAfib, HTN, GERD, Hypercholesterolemia . Sport Psychologist Required: No Boat Crew Deck Hand: Not Required per policy Accompanied by: Self / Same As Patient Allergies No Known Allergies Allergy (Verified 01/20/24 10:13) Medication List - Last Reconciled 01/20/24 by Ronal Agosto MD atorvastatin 10 mg PO DAILY diltiazem HCl 120 mg PO DAILY escitalopram oxalate 10 mg PO DAILY fenofibrate nanocrystallized 145 mg PO DAILY 90 days furosemide 20 mg PO DAILY lorazepam 0.5 mg PO BID PRN 30 days losartan 100 mg PO DAILY omeprazole 20 mg PO DAILY rivaroxaban (Xarelto) 20 mg PO DAILY sildenafil 50 mg PO DAILY PRN sotalol 120 mg PO BID 30 days zolpidem 10 mg PO BEDTIME PRN 30 days Tobacco use date assessed: 01/20/24 Fall risk assessment: No Falls in past year Last assessed Fall Risk: 01/20/24 Dental Screening Dental Screen Date: 01/20/24 Did you have a dental visit in the last 12 months?: Yes Did you have a dental problem in the last 6 months where you did not have access to dental care?: No Was dental information given to patient?: Patient has dentist HPI 4 month follow up, rescheduled from 11/29 HPI Details Patient comes in today for his follow up visit States that he feels okay S/P right knee arthroplasty back on 11/29/2023 - states that his right knee is coming along and he is still going to physical therapy for his knee Notes that his right knee and leg have been swollen since his surgery and is now just starting to ease up but is very slow overall He denies any headaches or dizziness Denies any chest pains, no SOB No nausea/vomiting, no abdominal pain No change in bowel habits noted Had his follow up labs done last week - to discuss his results [facility] Medical History Paroxysmal atrial fibrillation Obesity (BMI 30-39.9) Depression Anxiety Insomnia Iron deficiency anemia Vitamin D deficiency GERD without esophagitis Pure hypercholesterolemia Benign essential hypertension GERD (gastroesophageal reflux disease) Surgical History History of total right knee replacement H/O right knee surgery History of arthroscopic surgery of shoulder (~02/01/22) History of shoulder surgery History of colonoscopy Family History Father Lung cancer Mother Afib Social History Housing: House Alcohol intake: current Alcohol intake frequency: 3 or more drinks per day Alcohol type: beer Patient Tobacco Use Status: Former Tobacco user e-Cigarette/Vaping Use: Never Used Second Hand Smoke Exposure: Yes service: No Current occupational status: employed Cognitive needs: No Hearing needs: No Vision needs: No Questionnaire PHQ-9 Over the last 2 weeks, how often have you been bothered by any of the following problems? 1. Little interest or pleasure in doing things: not at all 2. Feeling down, depressed, or hopeless: not at all 3. Trouble falling or staying asleep, or sleeping too much: not at all 4. Feeling tired or having little energy: not at all 5. Poor appetite or overeating: not at all 6. Feeling bad about yourself - or that you are a failure or have let yourself or your family down: not at all 7. Trouble concentrating on things, such as reading the newspaper or watching television: not at all 8. Moving or speaking so slowly that other people could have noticed. Or the opposite - being so fidgety or restless that you have been moving around a lot more than usual: not at all 9. Thoughts that you would be better off or of hurting yourself in some way: not at all Total score: 0 Depression Screening Interpretation: Negative Depression Screening Done: Yes [id number] - PHQ-9 Billing: Yes Source: Developed by Drs. Rasta Ramachandran, Gisela Booth, Carlos Eduardo Delgado and colleagues, with an educational alvaro from [employer]. Thrive Questionnaire Date Thrive assessed: 01/20/24 I am a: Patient What is your living situation today?: I have a steady place to live Within the past 12 months, did the food you bought not last and you didn't have the money to get more?: Never true Within the past 12 months, did you worry whether your food would run out before you got money to buy more?: Never true Do you have trouble paying for medicines?: No Do you have trouble getting transportation to medical appointments?: No Do you have trouble paying your heating and electricity bill?: No Do you have trouble taking care of your child, family member or friend?: No Do you have trouble with day-to-day activities such as bathing, preparing meals, shopping, managing finances, etc.?: No Are you currently unemployed and looking for a job?: No Are you interested in more education?: No Currently or been in a relationship where the following occur: no concerns reported THRIVE Score: 0 AUDIT C Alcohol Use Questionnaire (AUDIT-C) 1. How often do you have a drink containing alcohol?: 4 or more times a week 2. How many drinks containing alcohol do you have on a typical day when you are drinking?: 1 or 2 Total Score: 4 Score Reviewed/Action Taken: Yes ALLA-7 AMB Questionnaire ALLA-7 Date ALLA - 7 assessed: 01/20/24 Feeling nervous, anxious, or on edge: 0 = Not at all Not being able to stop or control worryin = Not at all Worrying too much about different things: 0 = Not at all Trouble relaxin = Not at all Being so restless that it is hard to sit still: 0 = Not at all Becoming easily annoyed or irritable: 0 = Not at all Feeling afraid as if something awful might happen: 0 = Not at all Total ALLA-7 score (0-4 normal; 5-9 mild; 10-14 moderate; 15-21 severe): 0 Source: Developed by Drs. Rasta Ramachandran, Gisela Booth, Carlos Eduardo Delgado and colleagues, with an educational alvaro from [employer]. Review of Systems Const Denies chills, Denies fatigue, Denies fever(s) and Denies headache(s) ENT Denies dysphagia, Denies dizziness, Denies otalgia, Denies headache(s), Denies neck pain, Denies odynophagia and Denies sore throat Card Denies chest pain, Denies palpitations and Denies dyspnea Resp Denies chest congestion, Denies cough, Denies dyspnea and Denies wheezing GI Denies abdominal pain, Denies constipation, Denies dysphagia, Denies heartburn, Denies diarrhea, Denies nausea, Denies odynophagia and Denies vomiting Reports erectile dysfunction (lately), Denies dysuria, Denies nocturia and Denies urinary frequency Musc Denies back pain, Denies arthralgias (right knee pain - improving), Reports joint swelling (right knee and right leg) and Denies neck pain Skin/Breast Denies rash Neuro Denies dizziness and Denies headache(s) Endo Denies fatigue and Denies palpitations Aller/Immun Denies wheezing Physical exam (Primary Care) Vital Signs: Last Vital Signs BP 134/64 01/20/24 09:49 BMI result Body Mass Index 41.5 Tobacco/Smoking Status: Tobacco use Status Tobacco use date assessed 01/20/24 01/20/24 09:56 Patient Tobacco Use Status Former Tobacco user 01/20/24 09:56 e-Cigarette/Vaping Use Never Used 01/20/24 09:56 PHQ-9: PHQ-9 Score PHQ-9: Total score 0 01/20/24 09:56 Depression Screening Interpretation: Negative Thrive Assessment: Date of Thrive Assessment Date Thrive assessed 01/20/24 01/20/24 09:56 Currently or been in a relationship where the following occur: no concerns reported Const General: no acute distress and alert HENMT Ears: TM's normal bilaterally and EAC's normal Throat: Yes posterior oropharynx normal and Yes tonsils normal (no TP congestion noted) Neck Neck: Yes no lymphadenopathy and Yes supple Thyroid: Thyroid normal Resp Auscultation: clear to auscultation bilaterally, no rales and no wheezes Cardio Rate: regular rate Rhythm: regular rhythm Heart sounds: no murmurs GI Palpation (GI): Soft to palpation and nontender Auscultation: normal bowel sounds General: Yes no CVA tenderness Back/Spine/Pelvis Back: no CVA tenderness Skin Rashes: no rashes Extrem General: Yes no clubbing, cyanosis or edema Right lower extremity: knee Details: tenderness (minimal) Location: of the medial joint line and swelling and lower leg ((+) edema of the entire right lower leg) Results Reviewed Results Reviewed: Laboratory Tests 01/14/24 01/14/24 07:39 07:44 WBC 6.2 Hgb 11.4 L Hct 35.5 L Plt Count 254 Sodium 141 Potassium 4.9 Creatinine 0.87 Estimated GFR > 60 Fasting Glucose 97 Calcium 9.2 AST 18 ALT 9 Triglycerides 120 Cholesterol 131 LDL Cholesterol, Calc 72 HDL Cholesterol 35 L 25-OH Vitamin D Total 30.8 L TSH 3.02 Ur Specific [place] 1.010 Urine Protein Negative Urine Glucose (UA) Negative Urine Blood Negative Urine Nitrite Negative Ur Leukocyte Esterase Negative Assessment and Plan Assessment & Plan (1) Pure hypercholesterolemia: Code(s): E78.00 - Pure hypercholesterolemia, unspecified Plan: Results of his labs done last week reviewed and discussed with patient Reinforced low cholesterol diet Continue Atorvastatin 10 mg QD and Fenofibrate 145 mg QD Will recheck his labs and fasting lipids in 4 months for follow up (2) Benign essential hypertension: Code(s): I10 - Essential (primary) hypertension Plan: Reinforced low sodium diet - goal is systolic BP of at least 130 mm or less Continue Losartan 100 mg QD; is also on Diltiazem ER 120 mg QD (helps with both his HTN and PAF) (3) Paroxysmal atrial fibrillation: Comment: S/P cardioversion with Dr. Chen at [facility] Code(s): I48.0 - Paroxysmal atrial fibrillation Plan: Patient currently remains in sinus rhythm on Diltiazem ER 120 mg QD and Sotalol 120 mg BID Continue Xarelto 20 mg QD for thromboembolism prophylaxis (4) GERD without esophagitis: Code(s): K21.9 - Gastro-esophageal reflux disease without esophagitis Plan: Dietary restrictions reinforced Continue Omeprazole 20 mg QD (5) Osteoarthritis of right knee: Code(s): M17.11 - Unilateral primary osteoarthritis, right knee Qualifiers: Osteoarthritis type: post-traumatic Qualified Code(s): M17.31 - Unilateral post-traumatic osteoarthritis, right knee Plan: S/P total right knee arthroplasty on 11/29/2023 with [facility] He also had arthroscopic meniscal surgery / repair on 09/08/2022 Is currently still going to physical therapy for his knee and states that he is progressing well Follow up with [facility] as scheduled (6) Vitamin D deficiency: Code(s): E55.9 - Vitamin D deficiency, unspecified Plan: Corrected - continue Vitamin D3 2000 units QD (7) Iron deficiency anemia: Code(s): D50.9 - Iron deficiency anemia, unspecified Qualifiers: Iron deficiency anemia type: inadequate dietary iron intake Qualified Code(s): D50.8 - Other iron deficiency anemias Plan: Continue Feosol 200 mg QD Will continue to monitor his CBC regularly - advised that he is still slightly anemic but it does not appear to be due to iron deficiency - may be more likely to his being on oral anticoagulant (8) Erectile dysfunction: Code(s): N52.9 - Male erectile dysfunction, unspecified Qualifiers: Erectile dysfunction type: unspecified Qualified Code(s): N52.9 - Male erectile dysfunction, unspecified Plan: Continue Sildenafil 50 mg QD PRN (9) Insomnia: Code(s): G47.00 - Insomnia, unspecified Qualifiers: Insomnia type: unspecified Qualified Code(s): G47.00 - Insomnia, unspecified Plan: Sleep hygiene reinforced Continue Zolpidem 10 mg Q HS PRN (10) Anxiety: Code(s): F41.9 - Anxiety disorder, unspecified Plan: Continue Lorazepam 0.5 mg BID PRN (11) Depression: Code(s): F32.9 - Major depressive disorder, single episode, unspecified Qualifiers: Depression Type: major depressive disorder Major depression recurrence: recurrent Active/Remission status: currently active Major depression episode severity: unspecified Qualified Code(s): F33.9 - Major depressive disorder, recurrent, unspecified Plan: Continue Escitalopram 10 mg QD Has not been seeing psychiatry in a while now - feels that he is doing well on his current Rx and does not need to see psychiatry at this time States that he would like to try coming off his Rx if possible Instructed to try cutting his tablet in half and take 5 mg QD x 10 days, then D/C Advised that if he should start experiencing increasing symptoms of depression and/or anxiety over the next few months, then he should just go back on 10 mg QD; otherwise, if he continues to feel well months after he stops taking his Escitalopram, then he no longer needs to be on it (12) Obesity (BMI 30-39.9): Code(s): E66.9 - Obesity, unspecified Plan: Reinforced diet/exercise as tolerated/lose weight - he has gained a lot of weight since his last visit in June 2023 Plan Follow up in 4 months Orders: Orders Complete Blood Count Auto Diff 4 Months D64.9 - Anemia, unspecified Comprehensive [place]. Panel Fast 4 Months E78.00 - Pure hypercholesterolemia, unspecified UA CC w/rflx Micro + Cult 4 Months R30.0 - Dysuria TSH reflex Free T4 4 Months E78.00 - Pure hypercholesterolemia, unspecified Lipid Panel 4 Months E78.00 - Pure hypercholesterolemia, unspecified Vitamin D 25-OH Total 4 Months E55.9 - Vitamin D deficiency, unspecified Coding Level of Care Code Est Pt Level 4 (11011) Diagnoses Pure hypercholesterolemia E78.00 Benign essential hypertension I10 Paroxysmal atrial fibrillation I48.0 GERD without esophagitis K21.9 Post-traumatic osteoarthritis of right knee M17.31 Osteoarthritis type: post-traumatic Vitamin D deficiency E55.9 Iron deficiency anemia secondary to inadequate dietary iron intake D50.8 Iron deficiency anemia type: inadequate dietary iron intake Erectile dysfunction, unspecified erectile dysfunction type N52.9 Erectile dysfunction type: unspecified Insomnia, unspecified type G47.00 Insomnia type: unspecified Anxiety F41.9 Episode of recurrent major depressive disorder, unspecified depression episode severity F33.9 Depression Type: major depressive disorder Major depression recurrence: recurrent Active/Remission status: currently active Major depression episode severity: unspecified Obesity (BMI 30-39.9) E66.9
[2024-01-20 09:49] VITALS: BP 134/64; BMI 41.5
== END 2024-01-20 10:25 | disposition home or self-care (01) ==
PROVIDERS: PCP Internal Medicine; Visit Provider Internal Medicine
DX: I48.0 Paroxysmal atrial fibrillation (principal); F33.9 Major depressive disorder, recurrent, unspecified; E66.9 Obesity, unspecified; Z68.41 Body mass index [BMI] 40.0-44.9, adult; E78.00 Pure hypercholesterolemia, unspecified; I10 Essential (primary) hypertension; K21.9 Gastro-esophageal reflux disease without esophagitis; M17.31 Unilateral post-traumatic osteoarthritis, right knee; D50.8 Other iron deficiency anemias; E55.9 Vitamin D deficiency, unspecified; N52.9 Male erectile dysfunction, unspecified; G47.00 Insomnia, unspecified
CPT/HCPCS: 99214

== ENCOUNTER 2024-02-08 07:19 | Outpatient (REF) | payer OTHER, SELFPAY ==
--- NOTE | ~2024-02-08 | CT_ITS ---
EXAMINATION: CT CHEST WITHOUT CONTRAST CLINICAL INFORMATION: Cardiomyopathy. COMPARISON: None available. TECHNIQUE: Multidetector volumetric CT imaging of the chest was done. Axial MIP volume rendering provided. Sagittal and coronal reformatted images were obtained. This CT examination was performed using dose optimization techniques as appropriate, variously including the following: *Automated exposure control *Adjustment of mA and/or kV according to patient size (this includes techniques or standardized protocols for targeted exams where dose is matched to indication/reason for exam; i.e. extremities or head) *Use of iterative reconstruction technique DLP: 273 mGy-cm FINDINGS: LUNGS: Biapical scarring. Mild paraseptal and centrilobular emphysema. No suspicious pulmonary nodule. No focal consolidation. Central airways are patent. MEDIASTINUM: Subcentimeter mediastinal lymph nodes. Evaluation of the vishal is limited by the lack of intravenous contrast. Great vessels are of normal caliber. Heart size is normal. No pericardial effusion. CORONARY ARTERY CALCIFICATION: None visualized on this study. PLEURA: No pleural effusion. AXILLA: No axillary lymphadenopathy. UPPER ABDOMEN: Hepatic steatosis. No adrenal mass. OSSEOUS STRUCTURES: No destructive bone lesion. CT/CT chest wo IV con IMPRESSION: No acute intrathoracic abnormality.
== END 2024-02-08 07:20 | disposition home or self-care (01) ==
LOC: HO.CT 07:19
PROVIDERS: PCP Internal Medicine; Visit Provider Physician Assistant
DX: I48.91 Unspecified atrial fibrillation (principal)
CPT/HCPCS: 71250

== ENCOUNTER 2024-05-21 07:16 | Outpatient (REF) | payer MEDICARE, SELFPAY ==
[2024-05-21 10:16] LABS: MANUAL DIFF FLAG NO
[2024-05-21 10:17] LABS: Appearance Urine Clear; Color Urine Yellow; Glucose Urine UA Negative (Negative); Leukocyte Esterase Urine Negative (Negative); Nitrite Urine Negative (Negative); PH 5.5 (5.0-9.0); Urine Blood Negative (Negative); Urine Ketones Negative (Negative); Urine Protein Negative (Neg-Trace)
[2024-05-21 10:23] LABS: Basophils Absolute Auto 0.1 X10*3/uL (0.0-0.2); Basophils Percent Auto 0.9 % (0-2); Eosinophils Absolute Auto 0.3 X10*3/uL (0.0-0.4); Eosinophils Percent Auto 3.9 % (0-4); Hematocrit 39.7 % (42.0-52.0); Hemoglobin 13.1 g/dl (14.0-18.0); Imm Gran Abs Auto 0.05 X10*3/uL (0.00-0.03); Imm Gran Pct Auto 0.7 % (0.0-0.4); Lymphocytes Absolute Auto 1.2 X10*3/uL (1.2-4.9); Lymphocytes Percent Auto 17.5 % (20-40); Mean Corpuscular Hemoglobin 31.3 pg (27.0-33.0); Mean Corpuscular Volume 94.7 fL (80.0-98.0); Monocytes Absolute Auto 0.8 X10*3/uL (0.1-1.2); Monocytes Percent Auto 12.1 % (2-11); Neutrophils Absolute Auto 4.4 x10*3/uL (2.0-8.3); Neutrophils Percent Auto 64.9 % (45-73); Platelet Count 208 X10*3/uL (160-400); Red Blood Count 4.19 X10*6/uL (4.60-5.80); Red Cell Distribution Width 15.8 % (11.0-16.0); White Blood Count 6.7 X10*3/uL (4.8-10.8)
[2024-05-21 10:57] LABS: Alanine Aminotransferase 15 U/L (0-40); Albumin Level 3.8 g/dL (3.5-5.0); Alkaline Phosphatase 61 U/L (39-117); Anion Gap 14 (12-20); Aspartate Amino Transferase 22 U/L (5-37); Blood Urea Nitrogen 11 mg/dL (9-16); Carbon Dioxide 25 mmol/L (22-29); Chloride 106 mmol/L (96-108); Cholesterol 153 mg/dL (<200); Estimated Glomerular Filt Rate > 60; Glucose Fasting 95 mg/dL (60-99); HDL Cholesterol 35 mg/dL (>40); LDL Cholesterol Calculated 70 mg/dL (<100); Potassium 4.7 mmol/L (3.3-5.1); Sodium 140 mmol/L (135-145); TSH reflex Free T4 3.66 uIU/mL (0.32-4.0); Total Protein 6.9 g/dL (6.5-8.0); Triglycerides 242 mg/dL (<150); Vitamin D 25-OH Total 39.2 ng/mL (>30)
== END 2024-05-21 07:17 | disposition home or self-care (01) ==
LOC: HO.HMGCLDS 07:16
PROVIDERS: PCP Internal Medicine; Visit Provider Internal Medicine
DX: E78.00 Pure hypercholesterolemia, unspecified (principal); R30.0 Dysuria; D64.9 Anemia, unspecified; E55.9 Vitamin D deficiency, unspecified
CPT/HCPCS: 36415; 80053; 80061; 81003; 82306; 84443; 85025

== ENCOUNTER 2024-05-23 09:40 | Outpatient (AMB) | payer MEDICARE, SELFPAY ==
[2024-05-23 09:49] VITALS: BP 112/70; PULSE 59; O2SAT 96; BMI 40.8
--- NOTE | 2024-05-23 09:49 | A.OFFPC_ITS ---
Vital Signs 05/23/24 09:49 Height 5 ft 9 in Weight 276 lb 0.8 oz BMI 40.8 BP 112/70 Blood Pressure Location Lt brachial Position Sitting Pulse 59 Pulse Source Pulse Oximeter Pulse Oximetry (%) 96 Oxygen Delivery Method Room Air Intake Visit Reasons: hyperlipidemia, PAF, HTN, GERD Bag Bailer Required: No Allergies No Known Allergies Allergy (Verified 05/23/24 10:11) Medication List - Last Reconciled 05/23/24 by Ronal Agosto MD atorvastatin 10 mg PO DAILY diltiazem HCl CD 120 mg PO DAILY escitalopram oxalate 10 mg PO DAILY fenofibrate nanocrystallized 145 mg PO DAILY 90 days furosemide 20 mg PO DAILY lorazepam 0.5 mg PO BID PRN 30 days losartan 100 mg PO DAILY omeprazole 20 mg PO DAILY rivaroxaban (Xarelto) 20 mg PO DAILY sildenafil 50 mg PO DAILY PRN sotalol 160 mg PO BID zolpidem 10 mg PO BEDTIME PRN 30 days Tobacco use date assessed: 01/20/24 Fall risk assessment: No Falls in past year Last assessed Fall Risk: 05/23/24 Dental Screening Dental Screen Date: 01/20/24 HPI hyperlipidemia, PAF, HTN, GERD HPI Details Patient comes in today for his follow up visit States that he is still experiencing recurrent palpitations often, even after h is fueler (Dr. Chen) increased his Sotalol up to 160 mg BID a couple of months ago He is now scheduled to undergo cardiac ablation at [facility] on 06/11/2024, which he hopes will more permanently address his recurrent arrhythmia States that he feels okay otherwise He denies any headaches or dizziness Denies any chest pains, no SOB No nausea/vomiting, no abdominal pain No change in bowel habits noted Adds that he has been breaking out in an itchy rash predominantly over his upper arms and over his chest area and torso He was thinking that these may be insect bites or due to sun exposure and has been applying some OTC Hydrocortisone cream for a few days but with little relief and would like to have something prescribed that may work better Needs a couple of his Rx refilled He had his follow up labs done a couple of days ago - to discuss his results [facility] Medical History Paroxysmal atrial fibrillation Obesity (BMI 30-39.9) Depression Anxiety Insomnia Iron deficiency anemia Vitamin D deficiency GERD without esophagitis Pure hypercholesterolemia Benign essential hypertension GERD (gastroesophageal reflux disease) Surgical History History of total right knee replacement H/O right knee surgery History of arthroscopic surgery of shoulder (~02/01/22) History of shoulder surgery History of colonoscopy Family History Father Lung cancer Mother Afib Social History Housing: House Alcohol intake: current Alcohol intake frequency: 3 or more drinks per day Alcohol type: beer Patient Tobacco Use Status: Former Tobacco user e-Cigarette/Vaping Use: Never Used Second Hand Smoke Exposure: Yes service: No Current occupational status: employed Cognitive needs: No Hearing needs: No Vision needs: No Questionnaire Thrive Questionnaire Date Thrive assessed: 01/20/24 AUDIT C Alcohol Use Questionnaire (AUDIT-C) 1. How often do you have a drink containing alcohol?: 4 or more times a week 2. How many drinks containing alcohol do you have on a typical day when you are drinking?: 1 or 2 Total Score: 4 Score Reviewed/Action Taken: Yes ALLA-7 AMB Questionnaire ALLA-7 Date ALLA - 7 assessed: 01/20/24 Source: Developed by Drs. Rasta Ramachandran, Gisela Booth, Carlos Eduardo Delgado and colleagues, with an educational alvaro from [employer]. Review of Systems Const Denies chills, Denies fatigue, Denies fever(s) and Denies headache(s) ENT Denies dysphagia, Denies dizziness, Denies otalgia, Denies headache(s), Denies neck pain, Denies odynophagia and Denies sore throat Card Denies chest pain, Reports palpitations (on and off palpitations, especially at night) and Denies dyspnea Resp Denies chest congestion, Denies cough, Denies dyspnea and Denies wheezing GI Denies abdominal pain, Denies constipation, Denies dysphagia, Denies heartburn, Denies diarrhea, Denies nausea, Denies odynophagia and Denies vomiting Reports erectile dysfunction (lately), Denies dysuria, Denies nocturia and Denies urinary frequency Musc Denies back pain, Denies joint swelling and Denies neck pain Skin/Breast Reports rash (recurrent, itchy rash over his upper arms and chest/torso) Neuro Denies dizziness and Denies headache(s) Endo Denies fatigue and Reports palpitations (on and off palpitations, especially at night) Aller/Immun Denies wheezing Physical exam (Primary Care) Vital Signs: Last Vital Signs Pulse 59 05/23/24 09:49 BP 112/70 05/23/24 09:49 Pulse Ox 96 05/23/24 09:49 Oxygen Delivery Method Room Air 05/23/24 09:49 BMI result Body Mass Index 40.8 Tobacco/Smoking Status: Tobacco use Status Tobacco use date assessed 01/20/24 05/23/24 09:52 Patient Tobacco Use Status Former Tobacco user 05/23/24 09:52 e-Cigarette/Vaping Use Never Used 05/23/24 09:52 Thrive Assessment: Date of Thrive Assessment Date Thrive assessed 01/20/24 05/23/24 09:52 Const General: no acute distress and alert HENMT Ears: TM's normal bilaterally and EAC's normal Throat: Yes posterior oropharynx normal and Yes tonsils normal (no TP congestion noted) Neck Neck: Yes no lymphadenopathy and Yes supple Thyroid: Thyroid normal Resp Auscultation: clear to auscultation bilaterally, no rales and no wheezes Cardio Rate: regular rate Rhythm: regular rhythm Heart sounds: no murmurs GI Palpation (GI): Soft to palpation and nontender Auscultation: normal bowel sounds General: Yes no CVA tenderness Back/Spine/Pelvis Back: no CVA tenderness Thoracic/Lumbar Spine: No lumbar spinal tenderness Skin Rashes: rashes noted (scattered erythematous pruritic papular lesions over the upper arms & chest) Extrem General: Yes no clubbing, cyanosis or edema Results Reviewed Results Reviewed: Laboratory Tests 05/21/24 07:24 WBC 6.7 Hgb 13.1 L Hct 39.7 L Plt Count 208 Sodium 140 Potassium 4.7 Creatinine 0.82 Estimated GFR > 60 Fasting Glucose 95 Calcium 9.0 AST 22 ALT 15 Triglycerides 242 H Cholesterol 153 LDL Cholesterol, Calc 70 HDL Cholesterol 35 L 25-OH Vitamin D Total 39.2 TSH 3.66 Ur Specific [place] 1.010 Urine Protein Negative Urine Glucose (UA) Negative Urine Blood Negative Urine Nitrite Negative Ur Leukocyte Esterase Negative Assessment and Plan Assessment & Plan (1) Pure hypercholesterolemia: Code(s): E78.00 - Pure hypercholesterolemia, unspecified Plan: Results of his labs done a couple of days ago reviewed and discussed with patient - he is advised that his serum TG level has practically doubled from previous He states that he just realized recently that he has not been taking his Fenofibrate (probably for at least 3 to 4 months now) and will be starting back on it today Reinforced low cholesterol diet Continue Atorvastatin 10 mg QD; to start back on Fenofibrate 145 mg QD as well (Rx refilled) Will recheck his labs and fasting lipids in 4 months for follow up (2) Benign essential hypertension: Code(s): I10 - Essential (primary) hypertension Plan: Reinforced low sodium diet - goal is systolic BP of at least 130 mm or less Continue Losartan 100 mg QD; is also on Diltiazem ER 120 mg QD (helps with both his HTN and PAF) (3) Paroxysmal atrial fibrillation: Comment: S/P cardioversion with Dr. Chen at [facility] Code(s): I48.0 - Paroxysmal atrial fibrillation Plan: Patient currently remains in sinus rhythm on Diltiazem ER 120 mg QD and Sotalol 160 mg BID but he is reportedly still experiencing recurrent palpitations d espite his current Rx and is now scheduled for cardiac ablation on 06/11/[address] Chen at [facility] Continue Xarelto 20 mg QD for thromboembolism prophylaxis (4) GERD without esophagitis: Code(s): K21.9 - Gastro-esophageal reflux disease without esophagitis Plan: Dietary restrictions reinforced Continue Omeprazole 20 mg QD - Rx refilled (5) Osteoarthritis of right knee: Code(s): M17.11 - Unilateral primary osteoarthritis, right knee Qualifiers: Osteoarthritis type: post-traumatic Qualified Code(s): M17.31 - Unilate ral post-traumatic osteoarthritis, right knee Plan: S/P total right knee arthroplasty on 11/29/2023 with [facility] He also had arthroscopic meniscal surgery / repair on 09/08/2022; has also completed PT and states that he is doing well Follow up with [facility] as scheduled (6) Vitamin D deficiency: Code(s): E55.9 - Vitamin D deficiency, unspecified Plan: Corrected - continue Vitamin D3 2000 units QD (7) Iron deficiency anemia: Code(s): D50.9 - Iron deficiency anemia, unspecified Qualifiers: Iron deficiency anemia type: inadequate dietary iron intake Qualified Code(s): D50.8 - Other iron deficiency anemias Plan: Continue Feosol 200 mg QD Will continue to monitor his CBC regularly - advised that he is still slightly anemic but it does not appear to be due to iron deficiency - may be more likely to his being on oral anticoagulant (8) Erectile dysfunction: Code(s): N52.9 - Male erectile dysfunction, unspecified Qualifiers: Erectile dysfunction type: unspecified Qualified Code(s): N52.9 - Male erectile dysfunction, unspecified Plan: Continue Sildenafil 50 mg QD PRN (9) Pruritic erythematous rash: Code(s): L29.8 - Other pruritus Plan: Will start him on Triamcinolone acetonide 0.5% cream BID until his rash clear up, usually in 10 to 14 days (10) Insomnia: Code(s): G47.00 - Insomnia, unspecified Qualifiers: Insomnia type: unspecified Qualified Code(s): G47.00 - Insomnia, unspecified Plan: Sleep hygiene reinforced Continue Zolpidem 10 mg Q HS PRN (11) Anxiety: Code(s): F41.9 - Anxiety disorder, unspecified Plan: Continue Lorazepam 0.5 mg BID PRN (12) Depression: Code(s): F32.9 - Major depressive disorder, single episode, unspecified Qualifiers: Depression Type: major depressive disorder Major depression recurrence: recurrent Active/Remission status: currently active Major depression episode severity: unspecified Qualified Code(s): F33.9 - Major depressive disorder, recurrent, unspecified Plan: Continue Escitalopram 10 mg QD Has not been seeing psychiatry in a while now - feels that he is doing well on his current Rx and does not need to see psychiatry at this time States that he would like to try coming off his Rx if possible Instructed to try cutting his tablet in half and take 5 mg QD x 10 days, then D/C Advised that if he should start experiencing increasing symptoms of depression and/or anxiety over the next few months, then he should just go back on 10 mg QD; otherwise, if he continues to feel well months after he stops taking his Escitalopram, then he no longer needs to be on it (13) Obesity (BMI 30-39.9): Code(s): E66.9 - Obesity, unspecified Plan: Reinforced diet/exercise as tolerated/lose weight Plan Follow up in 4 months Orders: Orders Lipid Panel 4 Months E78.00 - Pure hypercholesterolemia, unspecified Comprehensive [place]. Panel Fast 4 Months E78.00 - Pure hypercholesterolemia, unspecified UA CC w/rflx Micro + Cult 4 Months R30.0 - Dysuria Complete Blood Count Auto Diff 4 Months D64.9 - Anemia, unspecified TSH reflex Free T4 4 Months E78.00 - Pure hypercholesterolemia, unspecified Medications: New triamcinolone acetonide 0.5% 1 appl topical BID 30 grams 0RF rash Changed From omeprazole 20 mg PO DAILY 90 caps 3RF K21.9 - Gastro-esophageal reflux disease without esophagitis To omeprazole 20 mg PO DAILY 90 days 90 caps 3RF K21.9 - Gastro-esophageal reflux disease without esophagitis Refilled fenofibrate nanocrystallized 145 mg PO DAILY 90 days 90 tabs 3RF Coding Level of Care Code Est Pt Level 4 (66713) Complex EM visit Add On G2211 Diagnoses Pure hypercholesterolemia E78.00 Benign essential hypertension I10 Paroxysmal atrial fibrillation I48.0 GERD without esophagitis K21.9 Post-traumatic osteoarthritis of right knee M17.31 Osteoarthritis type: post-traumatic Vitamin D deficiency E55.9 Iron deficiency anemia secondary to inadequate dietary iron intake D50.8 Iron deficiency anemia type: inadequate dietary iron intake Erectile dysfunction, unspecified erectile dysfunction type N52.9 Erectile dysfunction type: unspecified Pruritic erythematous rash L29.8 Insomnia, unspecified type G47.00 Insomnia type: unspecified Anxiety F41.9 Episode of recurrent major depressive disorder, unspecified depression episode severity F33.9 Depression Type: major depressive disorder Major depression recurrence: recurrent Active/Remission status: currently active Major depression episode severity: unspecified Obesity (BMI 30-39.9) E66.9
== END 2024-05-23 10:27 | disposition home or self-care (01) ==
PROVIDERS: PCP Internal Medicine; Visit Provider Internal Medicine
DX: E78.00 Pure hypercholesterolemia, unspecified (principal); I10 Essential (primary) hypertension; I48.0 Paroxysmal atrial fibrillation; K21.9 Gastro-esophageal reflux disease without esophagitis; M17.31 Unilateral post-traumatic osteoarthritis, right knee; E55.9 Vitamin D deficiency, unspecified; D50.8 Other iron deficiency anemias; N52.9 Male erectile dysfunction, unspecified; L29.8 Other pruritus; G47.00 Insomnia, unspecified; F41.9 Anxiety disorder, unspecified
CPT/HCPCS: 99214; G2211

== ENCOUNTER 2024-06-06 11:17 | Outpatient (REF) | payer MEDICARE, SELFPAY ==
[2024-06-06 13:21] LABS: MANUAL DIFF FLAG NO
[2024-06-06 13:30] LABS: Basophils Absolute Auto 0.1 X10*3/uL (0.0-0.2); Basophils Percent Auto 0.8 % (0-2); Eosinophils Absolute Auto 0.2 X10*3/uL (0.0-0.4); Eosinophils Percent Auto 3.3 % (0-4); Hematocrit 41.3 % (42.0-52.0); Hemoglobin 13.6 g/dl (14.0-18.0); Imm Gran Abs Auto 0.04 X10*3/uL (0.00-0.03); Imm Gran Pct Auto 0.5 % (0.0-0.4); Lymphocytes Absolute Auto 1.3 X10*3/uL (1.2-4.9); Mean Corpuscular HGB Conc 32.9 g/dl (31.0-36.0); Mean Corpuscular Hemoglobin 31.8 pg (27.0-33.0); Mean Corpuscular Volume 96.5 fL (80.0-98.0); Mean Platelet Volume 12.1 fL (9.4-12.4); Monocytes Absolute Auto 1.1 X10*3/uL (0.1-1.2); Monocytes Percent Auto 14.3 % (2-11); Neutrophils Absolute Auto 4.6 x10*3/uL (2.0-8.3); Neutrophils Percent Auto 63.1 % (45-73); Platelet Count 207 X10*3/uL (160-400); Red Blood Count 4.28 X10*6/uL (4.60-5.80); Red Cell Distribution Width 15.5 % (11.0-16.0); White Blood Count 7.4 X10*3/uL (4.8-10.8)
[2024-06-06 13:45] LABS: INTERNATIONAL NORM RATIO 1.1 (0.9-1.1); Prothrombin Time 13.9 SEC (11.1-13.3)
[2024-06-06 13:56] LABS: Anion Gap 14 (12-20); Blood Urea Nitrogen 19 mg/dL (9-16); Calcium 9.5 mg/dL (8.4-10.2); Carbon Dioxide 26 mmol/L (22-29); Chloride 104 mmol/L (96-108); Estimated Glomerular Filt Rate > 60; Glucose Random 93 mg/dL (60-115); Potassium 5.1 mmol/L (3.3-5.1); Sodium 139 mmol/L (135-145)
== END 2024-06-06 11:18 | disposition home or self-care (01) ==
LOC: HO.HMGCLDS 11:17
PROVIDERS: PCP Internal Medicine; Visit Provider Internal Medicine Clinical Cardiac Electrophysiology
DX: I48.91 Unspecified atrial fibrillation (principal)
CPT/HCPCS: 36415; 80048; 85025; 85610

== ENCOUNTER 2024-09-26 07:53 | Outpatient (REF) | payer MEDICARE, SELFPAY ==
[2024-09-26 10:36] LABS: Appearance Urine Clear; Color Urine Yellow; Glucose Urine UA Negative (Negative); Leukocyte Esterase Urine Negative (Negative); Nitrite Urine Negative (Negative); Specific Gravity - Urine <= 1.005 (1.005-1.025); Urine Blood Negative (Negative); Urine Ketones Negative (Negative); Urine Protein Negative (Neg-Trace)
[2024-09-26 10:42] LABS: MANUAL DIFF FLAG NO
[2024-09-26 10:48] LABS: Basophils Absolute Auto 0.1 X10*3/uL (0.0-0.2); Basophils Percent Auto 1.2 % (0-2); Eosinophils Absolute Auto 0.2 X10*3/uL (0.0-0.4); Eosinophils Percent Auto 3.4 % (0-4); Hematocrit 40.1 % (42.0-52.0); Hemoglobin 13.6 g/dl (14.0-18.0); Imm Gran Abs Auto 0.04 X10*3/uL (0.00-0.03); Imm Gran Pct Auto 0.7 % (0.0-0.4); Lymphocytes Percent Auto 18.2 % (20-40); Mean Corpuscular HGB Conc 33.9 g/dl (31.0-36.0); Mean Corpuscular Hemoglobin 32.9 pg (27.0-33.0); Mean Corpuscular Volume 96.9 fL (80.0-98.0); Mean Platelet Volume 11.4 fL (9.4-12.4); Monocytes Absolute Auto 0.7 X10*3/uL (0.1-1.2); Monocytes Percent Auto 13.1 % (2-11); Neutrophils Absolute Auto 3.6 x10*3/uL (2.0-8.3); Neutrophils Percent Auto 63.4 % (45-73); Platelet Count 260 X10*3/uL (160-400); Red Blood Count 4.14 X10*6/uL (4.60-5.80); Red Cell Distribution Width 14.1 % (11.0-16.0); White Blood Count 5.7 X10*3/uL (4.8-10.8)
[2024-09-26 11:43] LABS: Alanine Aminotransferase 19 U/L (0-40); Alkaline Phosphatase 38 U/L (39-117); Anion Gap 11 (12-20); Aspartate Amino Transferase 39 U/L (5-37); Bilirubin Total 0.6 mg/dL (0.0-1.0); Blood Urea Nitrogen 9 mg/dL (9-16); Calcium 9.5 mg/dL (8.4-10.2); Carbon Dioxide 26 mmol/L (22-29); Chloride 106 mmol/L (96-108); Cholesterol 165 mg/dL (<200); Estimated Glomerular Filt Rate > 60; Glucose Fasting 86 mg/dL (60-99); HDL Cholesterol 39 mg/dL (>40); LDL Cholesterol Calculated 83 mg/dL (<100); Potassium 5.2 mmol/L (3.3-5.1); Sodium 138 mmol/L (135-145); TSH reflex Free T4 3.72 uIU/mL (0.32-4.0); Total Protein 7.3 g/dL (6.5-8.0); Triglycerides 218 mg/dL (<150)
== END 2024-09-26 07:54 | disposition home or self-care (01) ==
LOC: HO.HMGCLDS 07:53
PROVIDERS: PCP Internal Medicine; Visit Provider Internal Medicine
DX: D64.9 Anemia, unspecified (principal); R30.0 Dysuria; E78.00 Pure hypercholesterolemia, unspecified
CPT/HCPCS: 36415; 80053; 80061; 81003; 84443; 85025

== ENCOUNTER 2024-10-02 09:16 | Outpatient (AMB) | payer MEDICARE, SELFPAY ==
[2024-10-02 09:26] VITALS: BP 132/80; PULSE 90; O2SAT 98; BMI 40.4
--- NOTE | 2024-10-02 09:26 | A.OFFPC_ITS ---
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 Accompanied by: Self / Same As Patient Allergies No Known Allergies Allergy (Verified 10/02/24 10:03) Medication List - Last Reconciled 10/02/24 by Ronal Agosto MD atorvastatin 10 mg PO DAILY diltiazem HCl CD 120 mg PO DAILY escitalopram oxalate 10 mg PO DAILY fenofibrate nanocrystallized 145 mg PO DAILY 90 days furosemide 20 mg PO DAILY lorazepam 0.5 mg PO BID PRN 30 days losartan 100 mg PO DAILY omeprazole 20 mg PO DAILY 90 days rivaroxaban (Xarelto) 20 mg PO DAILY sildenafil 50 mg PO DAILY PRN triamcinolone acetonide 0.5% 1 appl topical BID zolpidem 10 mg PO BEDTIME PRN 30 days Tobacco use date assessed: 10/02/24 Fall risk assessment: No Falls in past year Last assessed Fall Risk: 10/02/24 Dental Screening Dental Screen Date: 10/02/24 Did you have a dental visit in the last 12 months?: Yes Did you have a dental problem in the last 6 months where you did not have access to dental care?: No Was dental information given to patient?: Patient has dentist HPI 4 Month F/U HPI Details Patient comes in today for his follow-up visit States that he feels okay He denies any headaches or dizziness Denies any chest pains, no shortness of breath No nausea/vomiting, no abdominal pain No change in bowel habits noted Needs his topical Triamcinolone Rx refilled He had his follow-up labs done last week - to discuss his results [facility] Medical History Paroxysmal atrial fibrillation Obesity (BMI 30-39.9) Depression Anxiety Insomnia Iron deficiency anemia Vitamin D deficiency GERD without esophagitis Pure hypercholesterolemia Benign essential hypertension GERD (gastroesophageal reflux disease) Surgical History History of total right knee replacement H/O right knee surgery History of arthroscopic surgery of shoulder (~02/01/22) History of shoulder surgery History of colonoscopy Family History Father Lung cancer Mother Afib Social History Housing: House Alcohol intake: current Alcohol intake frequency: 3 or more drinks per day Alcohol type: beer Patient Tobacco Use Status: Former Tobacco user e-Cigarette/Vaping Use: Never Used Second Hand Smoke Exposure: Yes service: No Current occupational status: employed Cognitive needs: No Hearing needs: No Vision needs: No Questionnaire PHQ-9 Over the last 2 weeks, how often have you been bothered by any of the following problems? 1. Little interest or pleasure in doing things: not at all 2. Feeling down, depressed, or hopeless: not at all 3. Trouble falling or staying asleep, or sleeping too much: not at all 4. Feeling tired or having little energy: not at all 5. Poor appetite or overeating: not at all 6. Feeling bad about yourself - or that you are a failure or have let yourself or your family down: not at all 7. Trouble concentrating on things, such as reading the newspaper or watching television: not at all 8. Moving or speaking so slowly that other people could have noticed. Or the opposite - being so fidgety or restless that you have been moving around a lot more than usual: not at all 9. Thoughts that you would be better off or of hurting yourself in some way: not at all Total score: 0 Depression Screening Interpretation: Negative Depression Screening Done: Yes 80122 - PHQ-9 Billing: Yes Source: Developed by Drs. Rasta Ramachandran, Gisela Booth, Carlos Eduardo Delgado and colleagues, with an educational alvaro from [employer]. Thrive Questionnaire Date Thrive assessed: 10/02/24 I am a: Patient What is your living situation today?: I have a steady place to live Within the past 12 months, did the food you bought not last and you didn't have the money to get more?: Never true Within the past 12 months, did you worry whether your food would run out before you got money to buy more?: Never true Do you have trouble paying for medicines?: No Do you have trouble getting transportation to medical appointments?: No Do you have trouble paying your heating and electricity bill?: No Do you have trouble taking care of your child, family member or friend?: No Do you have trouble with day-to-day activities such as bathing, preparing meals, shopping, managing finances, etc.?: No Are you currently unemployed and looking for a job?: No Are you interested in more education?: No Please select the resources that you would like help with: None Currently or been in a relationship where the following occur: No concerns reported THRIVE Score: 0 AUDIT C Alcohol Use Questionnaire (AUDIT-C) 1. How often do you have a drink containing alcohol?: 4 or more times a week 2. How many drinks containing alcohol do you have on a typical day when you are drinking?: 1 or 2 Total Score: 4 Score Reviewed/Action Taken: Yes ALLA-7 AMB Questionnaire ALLA-7 Date ALLA - 7 assessed: 10/02/24 Feeling nervous, anxious, or on edge: 0 = Not at all Not being able to stop or control worryin = Not at all Worrying too much about different things: 0 = Not at all Trouble relaxin = Not at all Being so restless that it is hard to sit still: 0 = Not at all Becoming easily annoyed or irritable: 0 = Not at all Feeling afraid as if something awful might happen: 0 = Not at all Total ALLA-7 score (0-4 normal; 5-9 mild; 10-14 moderate; 15-21 severe): 0 Source: Developed by Drs. Rasat Ramachandran, Gisela Booth, Carlos Eduardo Delgado and colleagues, with an educational alvaro from [employer]. Review of Systems Const Denies chills, Denies fatigue, Denies fever(s) and Denies headache(s) ENT Denies dysphagia, Denies dizziness, Denies otalgia, Denies headache(s), Denies neck pain, Denies odynophagia and Denies sore throat Card Denies chest pain and Denies dyspnea Resp Denies chest congestion, Denies cough, Denies dyspnea and Denies wheezing GI Denies abdominal pain, Denies constipation, Denies dysphagia, Denies heartburn, Denies diarrhea, Denies nausea, Denies odynophagia and Denies vomiting Reports erectile dysfunction (lately), Denies dysuria, Denies nocturia and Denies urinary frequency Musc Denies back pain, Denies joint swelling and Denies neck pain Skin/Breast Denies rash Neuro Denies dizziness and Denies headache(s) Endo Denies fatigue Aller/Immun Denies wheezing Physical exam (Primary Care) Vital Signs: Last Vital Signs Pulse 90 10/02/24 09:26 BP 132/80 10/02/24 09:26 Pulse Ox 98 10/02/24 09:26 Oxygen Delivery Method Room Air 10/02/24 09:26 BMI result Body Mass Index 40.4 Tobacco/Smoking Status: Tobacco use Status Tobacco use date assessed 10/02/24 10/02/24 09:30 Patient Tobacco Use Status Former Tobacco user 10/02/24 09:30 e-Cigarette/Vaping Use Never Used 10/02/24 09:30 PHQ-9: PHQ-9 Score PHQ-9: Total score 0 10/02/24 10:09 Depression Screening Interpretation: Negative Thrive Assessment: Date of Thrive Assessment Date Thrive assessed 10/02/24 10/02/24 09:30 Currently or been in a relationship where the following occur: No concerns reported Const General: no acute distress and alert HENMT Ears: TM's normal bilaterally and EAC's normal Throat: Yes posterior oropharynx normal and Yes tonsils normal (no TP congestion noted) Neck Neck: Yes no lymphadenopathy and Yes supple Thyroid: Thyroid normal Resp Auscultation: clear to auscultation bilaterally, no rales and no wheezes Cardio Rate: regular rate Rhythm: regular rhythm Heart sounds: no murmurs GI Palpation (GI): Soft to palpation and nontender Auscultation: normal bowel sounds General: Yes no CVA tenderness Back/Spine/Pelvis Back: no CVA tenderness Thoracic/Lumbar Spine: No lumbar spinal tenderness Skin Rashes: no rashes Extrem General: Yes no clubbing, cyanosis or edema Office Procedures Flu Questionnaire Does the patient have a severe egg allergy?: No Immunizations Fluarix Triv [id number] (PF) 45 mcg (15 mcg x 3)/0.5 mL IM syringe Performing Provider: Ronal Agosto MD [facility] [place] [facility] Documented (not given) by: VICKY Candelario on 10/02/24 09:36 Reason Not Given: Patient Refused Results Reviewed Results Reviewed: Laboratory Tests 09/26/24 07:56 WBC 5.7 Hgb 13.6 L Hct 40.1 L Plt Count 260 D Sodium 138 Potassium 5.2 H Creatinine 0.88 Estimated GFR > 60 Fasting Glucose 86 Calcium 9.5 AST 39 H ALT 19 Triglycerides 218 H Cholesterol 165 LDL Cholesterol, Calc 83 HDL Cholesterol 39 L TSH 3.72 Ur Specific [place] <= 1.005 Urine Protein Negative Urine Glucose (UA) Negative Urine Blood Negative Urine Nitrite Negative Ur Leukocyte Esterase Negative Coding Level of Care Code Est Pt Level 4 (82118) Diagnoses Pure hypercholesterolemia E78.00 Benign essential hypertension I10 Paroxysmal atrial fibrillation I48.0 GERD without esophagitis K21.9 Post-traumatic osteoarthritis of right knee M17.31 Osteoarthritis type: post-traumatic Vitamin D deficiency E55.9 Iron deficiency anemia secondary to inadequate dietary iron intake D50.8 Iron deficiency anemia type: inadequate dietary iron intake Erectile dysfunction, unspecified erectile dysfunction type N52.9 Erectile dysfunction type: unspecified Pruritic erythematous rash L29.8 Insomnia, unspecified type G47.00 Insomnia type: unspecified Anxiety F41.9 Episode of recurrent major depressive disorder, unspecified depression episode severity F33.9 Depression Type: major depressive disorder Major depression recurrence: recurrent Active/Remission status: currently active Major depression episode severity: unspecified Obesity (BMI 30-39.9) E66.9 Additional Codes PHQ-9 - 17125 - PHQ-9 Billing: Yes ([id number]) Assessment & Plan Assessment & Plan (1) Pure hypercholesterolemia: Code(s): E78.00 - Pure hypercholesterolemia, unspecified Category: Medical Plan: Results of his labs done last week reviewed and discussed with patient Reinforced low cholesterol diet Continue Atorvastatin 10 mg QD and Fenofibrate 145 mg QD Will recheck his labs and fasting lipids in 4 months for follow up (2) Benign essential hypertension: Code(s): I10 - Essential (primary) hypertension Category: Medical Plan: Reinforced low sodium diet - goal is systolic BP of at least 130 mm or less Continue Losartan 100 mg QD; is also on Diltiazem ER 120 mg QD (helps with both his HTN and PAF) (3) Paroxysmal atrial fibrillation: Comment: S/P cardioversion with Dr. Chen at [facility] Code(s): I48.0 - Paroxysmal atrial fibrillation Category: Medical Plan: Patient currently remains in sinus rhythm on Diltiazem ER 120 mg QD and Sotalol 160 mg BID but he is reportedly still experiencing recurrent palpitations despite his current Rx and is now scheduled for cardiac ablation on 06/11/[address] Chen at [facility] Continue Xarelto 20 mg QD for thromboembolism prophylaxis (4) GERD without esophagitis: Code(s): K21.9 - Gastro-esophageal reflux disease without esophagitis Category: Medical Plan: Dietary restrictions reinforced Continue Omeprazole 20 mg QD (5) Osteoarthritis of right knee: Code(s): M17.11 - Unilateral primary osteoarthritis, right knee Category: Medical Qualifiers: Osteoarthritis type: post-traumatic Qualified Code(s): M17.31 - Unilateral post-traumatic osteoarthritis, right knee Plan: S/P total right knee arthroplasty on 11/29/2023 with [facility] He also had arthroscopic meniscal surgery / repair on 09/08/2022; has also completed PT and states that he is doing well Follow up with [facility] as scheduled (6) Vitamin D deficiency: Code(s): E55.9 - Vitamin D deficiency, unspecified Category: Medical Plan: Continue Vitamin D3 2000 units QD (7) Iron deficiency anemia: Code(s): D50.9 - Iron deficiency anemia, unspecified Category: Medical Qualifiers: Iron deficiency anemia type: inadequate dietary iron intake Qualified Code(s): D50.8 - Other iron deficiency anemias Plan: Continue Feosol 200 mg QD Will continue to monitor his CBC regularly (8) Erectile dysfunction: Code(s): N52.9 - Male erectile dysfunction, unspecified Category: Medical Qualifiers: Erectile dysfunction type: unspecified Qualified Code(s): N52.9 - Male erectile dysfunction, unspecified Plan: Continue Sildenafil 50 mg QD PRN (9) Pruritic erythematous rash: Code(s): L29.8 - Other pruritus Category: Medical Plan: Continue Triamcinolone acetonide 0.5% cream BID PRN (10) Insomnia: Code(s): G47.00 - Insomnia, unspecified Category: Medical Qualifiers: Insomnia type: unspecified Qualified Code(s): G47.00 - Insomnia, uns pecified Plan: Sleep hygiene reinforced Continue Zolpidem 10 mg Q HS PRN (11) Anxiety: Code(s): F41.9 - Anxiety disorder, unspecified Category: Medical Plan: Continue Lorazepam 0.5 mg BID PRN (12) Depression: Code(s): F32.9 - Major depressive disorder, single episode, unspecified Category: Medical Qualifiers: Depression Type: major depressive disorder Major depression recurrence: recurrent Active/Remission status: currently active Major depression episode severity: unspecified Qualified Code(s): F33.9 - Major depressive disorder, recurrent, unspecified Plan: Continue Escitalopram 10 mg QD Has not been seeing psychiatry in a while now - feels that he is doing well on his current Rx and does not need to see psychiatry at this time (13) Obesity (BMI 30-39.9): Code(s): E66.9 - Obesity, unspecified Category: Medical Plan: Reinforced diet/exercise as tolerated/lose weight Plan Follow up in 4 months Orders: Orders Comprehensive [place]. Panel Fast 4 Months E78.00 - Pure hypercholesterolemia, unspecified Complete Blood Count Auto Diff 4 Months D64.9 - Anemia, unspecified TSH reflex Free T4 4 Months E78.00 - Pure hypercholesterolemia, unspecified Influenza [id number] Immunization 10/02/24 Z23 - Encounter for immunization Lipid Panel 4 Months E78.00 - Pure hypercholesterolemia, unspecified UA CC w/rflx Micro + Cult 4 Months R30.0 - Dysuria Vitamin D 25-OH Total 4 Months E55.9 - Vitamin D deficiency, unspecified Medications: New triamcinolone acetonide 0.5% 1 appl topical BID 30 grams 0RF rash
== END 2024-10-02 10:14 | disposition home or self-care (01) ==
PROVIDERS: PCP Internal Medicine; Visit Provider Internal Medicine
DX: E78.00 Pure hypercholesterolemia, unspecified (principal); I10 Essential (primary) hypertension; I48.0 Paroxysmal atrial fibrillation; F33.9 Major depressive disorder, recurrent, unspecified; K21.9 Gastro-esophageal reflux disease without esophagitis; M17.31 Unilateral post-traumatic osteoarthritis, right knee; E55.9 Vitamin D deficiency, unspecified; D50.8 Other iron deficiency anemias; N52.9 Male erectile dysfunction, unspecified; L29.8 Other pruritus; G47.00 Insomnia, unspecified; F41.9 Anxiety disorder, unspecified

== ENCOUNTER → 2024-10-02 09:16 | Outpatient (BNVA) | payer MEDICARE, SELFPAY | PROVIDERS: PCP Internal Medicine; Visit Provider Internal Medicine | DX: E78.00 Pure hypercholesterolemia, unspecified (principal); I10 Essential (primary) hypertension; I48.0 Paroxysmal atrial fibrillation; K21.9 Gastro-esophageal reflux disease without esophagitis; M17.31 Unilateral post-traumatic osteoarthritis, right knee; E55.9 Vitamin D deficiency, unspecified; D50.8 Other iron deficiency anemias; N52.9 Male erectile dysfunction, unspecified; F41.9 Anxiety disorder, unspecified; G47.00 Insomnia, unspecified; F33.9 Major depressive disorder, recurrent, unspecified; E66.9 Obesity, unspecified; Z68.41 Body mass index [BMI] 40.0-44.9, adult; Z71.3 Dietary counseling and surveillance | CPT/HCPCS: 90471; 96127; 99212 ==

== ENCOUNTER 2025-01-29 06:22 | Outpatient (REF) | payer MEDICARE, SELFPAY ==
[2025-01-29 10:04] LABS: MANUAL DIFF FLAG NO
[2025-01-29 10:19] LABS: Appearance Urine Clear; Color Urine Yellow; Glucose Urine UA Negative (Negative); Leukocyte Esterase Urine Negative (Negative); Nitrite Urine Negative (Negative); PH 7.5 (5.0-9.0); Specific Gravity - Urine 1.015 (1.005-1.025); Urine Blood Negative (Negative); Urine Ketones Negative (Negative); Urine Protein Negative (Neg-Trace)
[2025-01-29 10:22] LABS: Basophils Absolute Auto 0.1 X10*3/uL (0.0-0.2); Basophils Percent Auto 1.3 % (0-2); Eosinophils Absolute Auto 0.2 X10*3/uL (0.0-0.4); Eosinophils Percent Auto 3.2 % (0-4); Hematocrit 41.5 % (42.0-52.0); Hemoglobin 13.5 g/dl (14.0-18.0); Imm Gran Abs Auto 0.03 X10*3/uL (0.00-0.03); Imm Gran Pct Auto 0.5 % (0.0-0.4); Lymphocytes Absolute Auto 1.2 X10*3/uL (1.2-4.9); Lymphocytes Percent Auto 19.9 % (20-40); Mean Corpuscular HGB Conc 32.5 g/dl (31.0-36.0); Mean Corpuscular Hemoglobin 31.8 pg (27.0-33.0); Mean Corpuscular Volume 97.6 fL (80.0-98.0); Mean Platelet Volume 11.7 fL (9.4-12.4); Monocytes Absolute Auto 0.8 X10*3/uL (0.1-1.2); Monocytes Percent Auto 13.1 % (2-11); Neutrophils Absolute Auto 3.9 x10*3/uL (2.0-8.3); Platelet Count 232 X10*3/uL (160-400); Red Blood Count 4.25 X10*6/uL (4.60-5.80); Red Cell Distribution Width 14.4 % (11.0-16.0); White Blood Count 6.2 X10*3/uL (4.8-10.8)
[2025-01-29 10:42] LABS: Alanine Aminotransferase 18 U/L (0-40); Albumin Level 3.8 g/dL (3.5-5.0); Alkaline Phosphatase 39 U/L (39-117); Anion Gap 12 (12-20); Aspartate Amino Transferase 27 U/L (5-37); Bilirubin Total 0.5 mg/dL (0.0-1.0); Blood Urea Nitrogen 12 mg/dL (9-16); Calcium 8.8 mg/dL (8.4-10.2); Carbon Dioxide 25 mmol/L (22-29); Chloride 108 mmol/L (96-108); Cholesterol 160 mg/dL (<200); Estimated Glomerular Filt Rate > 60; Glucose Fasting 90 mg/dL (60-99); HDL Cholesterol 39 mg/dL (>40); LDL Cholesterol Calculated 92 mg/dL (<100); Potassium 5.1 mmol/L (3.3-5.1); Sodium 140 mmol/L (135-145); Total Protein 7.1 g/dL (6.5-8.0); Triglycerides 148 mg/dL (<150)
[2025-01-29 10:59] LABS: TSH reflex Free T4 4.89 uIU/mL (0.32-4.0); Vitamin D 25-OH Total 43.9 ng/mL (>30)
[2025-01-29 11:36] LABS: Free T4 (Free Thyroxine) 1.01 ng/dL (0.71-1.85)
== END 2025-01-29 06:23 | disposition home or self-care (01) ==
LOC: HO.HMGCLDS 06:22
PROVIDERS: PCP Internal Medicine; Visit Provider Internal Medicine
DX: D64.9 Anemia, unspecified (principal); R30.0 Dysuria; E78.00 Pure hypercholesterolemia, unspecified; E55.9 Vitamin D deficiency, unspecified
CPT/HCPCS: 36415; 80053; 80061; 81003; 82306; 84439; 84443; 85025

== ENCOUNTER 2025-01-31 09:42 | Outpatient (AMB) | payer MEDICARE, SELFPAY ==
--- NOTE | 2025-01-31 09:43 | A.OFFPC_ITS ---
Vital Signs 01/31/25 09:44 Height 5 ft 9 in Weight 270 lb 2 oz BMI 39.9 BP 126/82 Blood Pressure Location Lt brachial Position Sitting Pulse 74 Pulse Source Pulse Oximeter Pulse Oximetry (%) 99 Oxygen Delivery Method Room Air Intake Visit Reasons: [facility] f/u Special Projects Coordinator Required: No Accompanied by: Self / Same As Patient Allergies No Known Allergies Allergy (Verified 01/31/25 10:19) Medication List - Last Reconciled 01/31/25 by Ronal Agosto MD atorvastatin 10 mg PO DAILY diltiazem HCl CD 120 mg PO DAILY escitalopram oxalate 10 mg PO DAILY fenofibrate nanocrystallized 145 mg PO DAILY 90 days furosemide 20 mg PO DAILY lorazepam 0.5 mg PO BID PRN 30 days losartan 100 mg PO DAILY omeprazole 20 mg PO DAILY 90 days rivaroxaban (Xarelto) 20 mg PO DAILY sildenafil 50 mg PO DAILY PRN triamcinolone acetonide 0.5% 1 appl topical BID zolpidem 10 mg PO BEDTIME PRN 30 days Tobacco use date assessed: 01/31/25 Fall risk assessment: No Falls in past year Last assessed Fall Risk: 01/31/25 Dental Screening Dental Screen Date: 01/31/25 Did you have a dental visit in the last 12 months?: Yes Did you have a dental problem in the last 6 months where you did not have access to dental care?: No Was dental information given to patient?: Patient has dentist HPI [facility] f/u HPI Details Patient comes in today for his follow-up visit of his hyperlipidemia, HTN, PAF States that he feels okay He denies any headaches or dizziness Denies any chest pains, no shortness of breath States that he has not had any further episodes of palpitations since his second cardiac ablation procedure back in May of 2024 No nausea/vomiting, no abdominal pain No change in bowel habits noted He had his follow-up labs done a couple of days ago - to discuss his results [facility] Medical History Paroxysmal atrial fibrillation Obesity (BMI 30-39.9) Depression Anxiety Insomnia Iron deficiency anemia Vitamin D deficiency GERD without esophagitis Pure hypercholesterolemia Benign essential hypertension GERD (gastroesophageal reflux disease) Surgical History (Updated 01/31/25 @ 10:34 by Ronal Agosto MD) History of cardiac ablation for atrial fibrillation History of total right knee replacement H/O right knee surgery History of arthroscopic surgery of shoulder (~02/01/22) History of shoulder surgery History of colonoscopy Family History Father Lung cancer Mother Afib Social History Housing: House Alcohol intake: current Alcohol intake frequency: 3 or more drinks per day Alcohol type: beer Patient Tobacco Use Status: Former Tobacco user e-Cigarette/Vaping Use: Never Used Second Hand Smoke Exposure: Yes service: No Current occupational status: employed Cognitive needs: No Hearing needs: No Vision needs: No Questionnaire PHQ-9 Over the last 2 weeks, how often have you been bothered by any of the following problems? 1. Little interest or pleasure in doing things: not at all 2. Feeling down, depressed, or hopeless: not at all 3. Trouble falling or staying asleep, or sleeping too much: not at all 4. Feeling tired or having little energy: not at all 5. Poor appetite or overeating: not at all 6. Feeling bad about yourself - or that you are a failure or have let yourself or your family down: not at all 7. Trouble concentrating on things, such as reading the newspaper or watching television: not at all 8. Moving or speaking so slowly that other people could have noticed. Or the opposite - being so fidgety or restless that you have been moving around a lot more than usual: not at all 9. Thoughts that you would be better off or of hurting yourself in some way: not at all Total score: 0 Depression Screening Interpretation: Negative Depression Screening Done: Yes 01135 - PHQ-9 Billing: Yes Source: Developed by Drs. Rasta Ramachandran, Gisela Booth, Carlos Eduardo Delgado and colleagues, with an educational alvaro from [employer]. Thrive Questionnaire Date Thrive assessed: 01/31/25 I am a: Patient What is your living situation today?: I have a steady place to live Within the past 12 months, did the food you bought not last and you didn't have the money to get more?: Never true Within the past 12 months, did you worry whether your food would run out before you got money to buy more?: Never true Do you have trouble paying for medicines?: No Do you have trouble getting transportation to medical appointments?: No Do you have trouble paying your heating and electricity bill?: No Do you have trouble taking care of your child, family member or friend?: No Do you have trouble with day-to-day activities such as bathing, preparing meals, shopping, managing finances, etc.?: No Are you currently unemployed and looking for a job?: No Are you interested in more education?: No Please select the resources that you would like help with: None Currently or been in a relationship where the following occur: No concerns reported THRIVE Score: 0 AUDIT C Alcohol Use Questionnaire (AUDIT-C) 1. How often do you have a drink containing alcohol?: Monthly or less 2. How many drinks containing alcohol do you have on a typical day when you are drinking?: 3 or 4 3. How often do you have six or more drinks on one occasion?: Monthly Total Score: 4 Score Reviewed/Action Taken: Yes ALLA-7 AMB Questionnaire ALLA-7 Date ALLA - 7 assessed: 01/31/25 Feeling nervous, anxious, or on edge: 0 = Not at all Not being able to stop or control worryin = Not at all Worrying too much about different things: 0 = Not at all Trouble relaxin = Not at all Being so restless that it is hard to sit still: 0 = Not at all Becoming easily annoyed or irritable: 0 = Not at all Feeling afraid as if something awful might happen: 0 = Not at all Total ALLA-7 score (0-4 normal; 5-9 mild; 10-14 moderate; 15-21 severe): 0 Source: Developed by Drs. Rasta Ramachandran, Gisela Booth, Carlos Eduardo Delgado and colleagues, with an educational alvaro from [employer]. Review of Systems Const Denies chills, Denies fatigue, Denies fever(s) and Denies headache(s) ENT Denies dysphagia, Denies dizziness, Denies otalgia, Denies headache(s), Denies neck pain, Denies odynophagia and Denies sore throat Card Denies chest pain, Denies irregular heart rhythm, Denies palpitations and Denies dyspnea Resp Denies chest congestion, Denies cough and Denies dyspnea GI Denies abdominal pain, Denies constipation, Denies dysphagia, Denies heartburn, Denies diarrhea, Denies nausea, Denies odynophagia and Denies vomiting Denies difficulty urinating, Reports erectile dysfunction (lately), Denies dysuria, Denies nocturia and Denies urinary frequency Musc Denies back pain, Denies arthralgias and Denies neck pain Skin/Breast Denies rash Neuro Denies dizziness and Denies headache(s) Endo Denies fatigue and Denies palpitations Physical exam (Primary Care) Vital Signs: Last Vital Signs Pulse 74 01/31/25 09:44 BP 126/82 01/31/25 09:44 Pulse Ox 99 01/31/25 09:44 Oxygen Delivery Method Room Air 01/31/25 09:44 BMI result Body Mass Index 39.9 Tobacco/Smoking Status: Tobacco use Status Tobacco use date assessed 01/31/25 01/31/25 09:54 Patient Tobacco Use Status Former Tobacco user 01/31/25 09:48 e-Cigarette/Vaping Use Never Used 01/31/25 09:48 PHQ-9: PHQ-9 Score PHQ-9: Total score 0 01/31/25 09:54 Depression Screening Interpretation: Negative Thrive Assessment: Date of Thrive Assessment Date Thrive assessed 01/31/25 01/31/25 09:54 Currently or been in a relationship where the following occur: No concerns reported Const General: no acute distress and alert HENMT Ears: TM's normal bilaterally and EAC's normal Throat: Yes posterior oropharynx normal and Yes tonsils normal (no TP congestion noted) Neck Neck: Yes supple and No lymphadenopathy Thyroid: Thyroid normal Resp Auscultation: clear to auscultation bilaterally, no rales and no wheezes Cardio Rate: regular rate Rhythm: regular rhythm Heart sounds: no murmurs GI Palpation (GI): Soft to palpation and nontender Auscultation: normal bowel sounds General: Yes no CVA tenderness Back/Spine/Pelvis Back: no CVA tenderness Thoracic/Lumbar Spine: No lumbar spinal tenderness Skin Rashes: no rashes Extrem General: Yes no clubbing, cyanosis or edema Results Reviewed Results Reviewed: Laboratory Tests 01/29/25 06:41 WBC 6.2 Hgb 13.5 L Hct 41.5 L Plt Count 232 Sodium 140 Potassium 5.1 Creatinine 0.93 Estimated GFR > 60 Fasting Glucose 90 AST 27 ALT 18 Triglycerides 148 Cholesterol 160 LDL Cholesterol, Calc 92 HDL Cholesterol 39 L 25-OH Vitamin D Total 43.9 TSH 4.89 H Free T4 1.01 Ur Specific [place] 1.015 Urine Protein Negative Urine Glucose (UA) Negative Urine Blood Negative Urine Nitrite Negative Ur Leukocyte Esterase Negative Coding Level of Care Code Est Pt Level 4 (89876) Complex EM visit Add On G2211 Diagnoses Pure hypercholesterolemia E78.00 Benign essential hypertension I10 Paroxysmal atrial fibrillation I48.0 GERD without esophagitis K21.9 Post-traumatic osteoarthritis of right knee M17.31 Osteoarthritis type: post-traumatic Vitamin D deficiency E55.9 Iron deficiency anemia secondary to inadequate dietary iron intake D50.8 Iron deficiency anemia type: inadequate dietary iron intake Erectile dysfunction, unspecified erectile dysfunction type N52.9 Erectile dysfunction type: unspecified Pruritic erythematous rash L29.8 Insomnia, unspecified type G47.00 Insomnia type: unspecified Anxiety F41.9 Episode of recurrent major depressive disorder, unspecified depression episode severity F33.9 Depression Type: major depressive disorder Major depression recurrence: recurrent Active/Remission status: currently active Major depression episode severity: unspecified Obesity (BMI 30-39.9) E66.9 Additional Codes PHQ-9 - 20594 - PHQ-9 Billing: Yes ([id number]) Assessment & Plan Assessment & Plan (1) Pure hypercholesterolemia: Code(s): E78.00 - Pure hypercholesterolemia, unspecified Category: Medical Plan: Results of his labs done a couple of days ago reviewed and discussed with patient Reinforced low cholesterol diet Continue Atorvastatin 10 mg QD and Fenofibrate 145 mg QD Will recheck his labs and fasting lipids in 4 months for follow up (2) Benign essential hypertension: Code(s): I10 - Essential (primary) hypertension Category: Medical Plan: Reinforced low sodium diet - goal is systolic BP of at least 130 mm or less Continue Losartan 100 mg QD; he is also on Diltiazem ER 120 mg QD, which helps with both his HTN and PAF (3) Paroxysmal atrial fibrillation: Comment: S/P cardioversion with Dr. Chen at [facility] Code(s): I48.0 - Paroxysmal atrial fibrillation Category: Medical Plan: Patient currently remains in sinus rhythm on Diltiazem ER 120 mg QD and Sotalol 160 mg BID States that he has not had any further episodes/sensation of palpitations since his 2nd cardiac ablation on 06/11/[address] Chen at [facility] Continue Xarelto 20 mg QD for thromboembolism prophylaxis (4) GERD without esophagitis: Code(s): K21.9 - Gastro-esophageal reflux disease without esophagitis Category: Medical Plan: Dietary restrictions reinforced Continue Omeprazole 20 mg QD (5) Osteoarthritis of right knee: Code(s): M17.11 - Unilateral primary osteoarthritis, right knee Category: Medical Qualifiers: Osteoarthritis type: post-traumatic Qualified Code(s): M17.31 - Unilateral post-traumatic osteoarthritis, right knee Plan: S/P total right knee arthroplasty on 11/29/2023 with [facility] He also had arthroscopic meniscal surgery / repair on 09/08/2022 and completed PT for his knee - states that he has been doing well since Follow up with [facility] as scheduled (6) Vitamin D deficiency: Code(s): E55.9 - Vitamin D deficiency, unspecified Category: Medical Plan: Continue Vitamin D3 2000 units QD (7) Iron deficiency anemia: Code(s): D50.9 - Iron deficiency anemia, unspecified Category: Medical Qualifiers: Iron deficiency anemia type: inadequate dietary iron intake Qualified Code(s): D50.8 - Other iron deficiency anemias Plan: Continue Feosol 200 mg QD Will continue to monitor his CBC regularly (8) Erectile dysfunction: Code(s): N52.9 - Male erectile dysfunction, unspecified Category: Medical Qualifiers: Erectile dysfunction type: unspecified Qualified Code(s): N52.9 - Male erectile dysfunction, unspecified Plan: Continue Sildenafil 50 mg QD PRN (9) Pruritic erythematous rash: Code(s): L29.8 - Other pruritus Category: Medical Plan: Continue Triamcinolone acetonide 0.5% cream BID PRN (10) Insomnia: Code(s): G47.00 - Insomnia, unspecified Category: Medical Qualifiers: Insomnia type: unspecified Qualified Code(s): G47.00 - Insomnia, unspecified Plan: Sleep hygiene reinforced Continue Zolpidem 10 mg Q HS PRN (11) Anxiety: Code(s): F41.9 - Anxiety disorder, unspecified Category: Medical Plan: Continue Lorazepam 0.5 mg BID PRN (12) Depression: Code(s): F32.9 - Major depressive disorder, single episode, unspecified Category: Medical Qualifiers: Depression Type: major depressive disorder Major depression recurrence: recurrent Active/Remission status: currently active Major depression episode severity: unspecified Qualified Code(s): F33.9 - Major depressive disorder, recurrent, unspecified Plan: Continue Escitalopram 10 mg QD He has not been seeing psychiatry in a while now - feels that he is doing well on his current Rx and does not need to see psychiatry at this time (13) Obesity (BMI 30-39.9): Code(s): E66.9 - Obesity, unspecified Category: Medical Plan: Reinforced diet/exercise as tolerated/lose weight Plan Follow up in 4 months Orders: Orders Comprehensive Baxter. Panel Fast 4 Months E78.00 - Pure hypercholesterolemia, unspecified Complete Blood Count Auto Diff 4 Months D64.9 - Anemia, unspecified Lipid Panel 4 Months E78.00 - Pure hypercholesterolemia, unspecified TSH reflex Free T4 4 Months E78.00 - Pure hypercholesterolemia, unspecified UA CC w/rflx Micro + Cult 4 Months R30.0 - Dysuria
[2025-01-31 09:44] VITALS: BP 126/82; PULSE 74; O2SAT 99; BMI 39.9
--- OUTSIDE RECORDS SUMMARY | 2025-01-31 10:47 | XMS_ITS | Clinical Summary ---
Author Organization [facility] Address [address] [place] [address] Care Team Providers Care Supervisor Tan Room Name Role Phone Ronal Agosto MD Primary Care Provider Allergies No known active allergies Medications atorvastatin (LIPITOR) 10 mg tablet Take 10 mg by mouth daily. 08/17/2020 Active dilTIAZem CD (CARDIZEM CD) 120 mg 24 hr capsule Take 1 Capsule by mouth daily. 07/12/2024 Active escitalopram (LEXAPRO) 10 mg tablet Take 10 mg by mouth daily. Active fenofibrate (TRICOR) 145 mg tablet Take 145 mg by mouth daily. 2017 Active furosemide (LASIX) 20 mg tablet TAKE 1 TABLET BY MOUTH EVERY DAY 09/19/2023 Active LORazepam (ATIVAN) 0.5 mg tablet Take 0.5 mg by mouth daily as needed. Active losartan (COZAAR) 100 mg tablet TAKE 1 TABLET DAILY 03/21/2024 Active omeprazole (PRILOSEC) 20 mg tablet,delayed release (DR/EC) Take 20 mg by mouth daily. Active Xarelto 20 mg tablet TAKE 1 TABLET BY MOUTH EVERY DAY 90 tablet 2 11/29/2024 Active Active Problems Problem Noted Date Diagnosed Date SOB (shortness of breath) 07/10/2024 Aneurysm of ascending aorta without rupture 11/14 Cardiomyopathy 01/11/2022 HFrEF (heart failure with reduced ejection fract ion) 01/11/2022 Atrial fibrillation with RVR 01/08/2022 Obesity 01/08/2022 PAF (paroxysmal atrial fibrillation) 01/08/2022 Primary hypertension 01/08/2022 Medical History Medical History Date Comments Obesity DX:Obesity Covid 10/2020 DX:COVID Social History Tobacco Use Types Packs/Day Years Used Date Smoking Tobacco: Former Cigarettes Q uit: 11/14/1997 Smokeless Tobacco: Never Alcohol Use Standard Drinks/Week Comments Yes 12 (1 standard drink = 0.6 oz pu re alcohol) Sex and Gender Information Value Date Recorded Sex Assigned at Not on file Legal Sex Male 2:11 PM EST Gender Identity Not on file Sexual Orientation Not on file Obstetrics History Last Filed Vital Signs Vital Sign Reading Time Taken Comments Blood Pressure 120/70 09/06/2024 12:49 PM EDT Sitting L Arm Pulse 75 09/06/2024 12:49 PM EDT Temperature - - Respiratory Rate - - Oxygen Saturation - - Inhaled Oxygen Concentration - - Weight 126 kg (277 lb 3.2 oz) 12:49 PM EDT Height 175.3 cm (5' 9 ) 09/06/2024 12:4 9 PM EDT Body Mass Index 40.94 09/06/2024 12:49 PM EDT Plan of Treatment Upcoming Encounters Date Type Department Care Team (Late st Contact Info) Description 03/13/2025 9:40 AM EDT Office Visit [facility] - [address] [place] [address] Gabrielle Verduzco PA [address] [place] [address] Health Maintenance Due Date Last Done Comments DTaP,Tdap,and Td Vaccines (1 - Tdap) 1971 Pneumococcal Vaccine: 50+ Years (1 of 1 - PCV) 2002 Zoster Vaccines (1 of 2) 2002 RSV Immunization Patients 60 + Years Old (1 - Risk 60-74 years 1-dose series) 2012 Abdominal Aortic Aneurysm (AAA) Screen 10/23/2022 Cholesterol Screening (Lipid Panel) 10/23/2022 Colorectal Cancer Screening: Colonoscopy 10/23/2022 Depression Screening 10/23/2022 Falls Risk Assessment 10/23/2022 Hepatitis C Screening 10/23/2022 Hypertension/CHF/CAD Annual BMP Blood Test 10/23/2022 Medicare Annual Wellness Visit 10/23/2022 Social Influencers of Health Screening 10/23/2022 COVID-19 Vaccine (3 2023-2 5 season) 2024 02/06/2021, 01/09/2021 Influenza Vaccine (#1) 2024 HIB Vaccines Aged Out No longer eligi ble based on patient's age to complete this topic HPV Vaccines Aged Out No longer eligi ble based on patient's age to complete this topic Hepatitis A Vaccines Aged Out No long er eligible based on patient's age to complete this topic Hepatitis B Vaccines Aged Out No long er eligible based on patient's age to complete this topic IPV Vaccines Aged Out No longer eligi ble based on patient's age to complete this topic MMR Vaccines Aged Out No longer eligi ble based on patient's age to complete this topic Meningococcal ACWY Vaccine Aged Out N o longer eligible based on patient's age to complete this topic Meningococcal B Vacine Aged Out No lo nger eligible based on patient's age to complete this topic RSV Immunization Patients Under 20 months Aged Out No longer eligible b ased on patient's age to complete this topic Varicella Vaccines Aged Out No longer eligible based on patient's age to complete [place] [id number] MEDICARE Care Teams Supervisor Tan Room Relationship Specialty Start Date End Date Ronal Agosto MD [address] [place] [address] [address] PCP - General 07/15/17
--- OUTSIDE RECORDS SUMMARY | 2025-01-31 10:47 | XMS_ITS | Patient Health Record ---
Author Organization [facility] Address [address] [place] [address] Care Team Providers Care Laboratory Tester Name Role Phone Surendra SPENCE, Pillow Primary Care Provider Rasta Allen Unavailable [phone] Reason For Referral No Information Medications Medication SIG (Take, Route, Frequency, Duration) Notes Start Date End Date Status FLUoxetine HCl 20 MG 1 capsule in the morning Orally Once a day Active Lorazepam 1 mg 1 tab Oral PRN as needed for anxiety--takes rarely Active Fish Oil Active Tricor 145 MG 1 tablet Orally Once a day Active Suprep Bowel Prep 1 kit as directed Orally as directed for 1 dose 10/22/2014 Active Omeprazole 10 MG 1 capsule Orally Once a day Active Metoprolol Succinate ER 25 MG 1 tablet Orally Once a day Active Atorvastatin Calcium 10 MG 1 tablet Orally Once a day Active Problems Problem Type SNOMED Code ICD Code Onset Dates Problem Status W/U Status Risk Notes Problem Colon cancer screening (216699959) Colon cancer screening (V76.51) Active confirmed Problem Gastroesophageal reflux disease (463939481) GERD (gastroesopha geal reflux disease) (530.81) Active confirmed Plan Of Treatment Future Test Test Name Order Date COLONOSCOPY 10/22/2014 Next Appt Details Provider Name:Rasta Sorto , 02/28/2025 10:00:00 AM, [address], [address], [place], [address], Insurance Providers Payer Name Payer Address Payer Phone Subscriber Number Group Number Insured Name Patient Relationship to Insured Coverage Start Date Coverage End Date MEDICARE [place] [address] [place] [address] [id number] [employer] Self - patient is the insured [employer] ATTN CLAIMS [address] [place] [address] [id number] [place] Self - patient is the insured Medical (General) History Medical History History ICD Code GERD--EGD in 08/2003-small HH, no esopha gitis nor Estevez's HTN Anxiety Hyperlipidemia Denies MA,DM,CVA,Lung disease,renal dise ase Colonoscopy in 08/2003--no polyps, melan osis coli, internal hemorrhoids Surgical History Surgery Date(Month/Year) shoulder surgery tonsils vocal cord polyp
== END 2025-01-31 10:39 | disposition home or self-care (01) ==
LOC: HO.HMCH 09:42
PROVIDERS: PCP Internal Medicine; Visit Provider Internal Medicine
DX: E78.00 Pure hypercholesterolemia, unspecified (principal); I10 Essential (primary) hypertension; I48.0 Paroxysmal atrial fibrillation; K21.9 Gastro-esophageal reflux disease without esophagitis; M17.31 Unilateral post-traumatic osteoarthritis, right knee; E55.9 Vitamin D deficiency, unspecified; D50.8 Other iron deficiency anemias; N52.9 Male erectile dysfunction, unspecified; L29.89 Other pruritus; G47.00 Insomnia, unspecified; F41.9 Anxiety disorder, unspecified; F33.9 Major depressive disorder, recurrent, unspecified; E66.9 Obesity, unspecified

== ENCOUNTER → 2025-01-31 09:42 | Outpatient (BNVA) | payer MEDICARE, SELFPAY | PROVIDERS: PCP Internal Medicine; Visit Provider Internal Medicine | DX: E78.00 Pure hypercholesterolemia, unspecified (principal); I10 Essential (primary) hypertension; I48.0 Paroxysmal atrial fibrillation; K21.9 Gastro-esophageal reflux disease without esophagitis; M17.31 Unilateral post-traumatic osteoarthritis, right knee; E55.9 Vitamin D deficiency, unspecified; D50.8 Other iron deficiency anemias; N52.9 Male erectile dysfunction, unspecified; G47.00 Insomnia, unspecified; F41.9 Anxiety disorder, unspecified; F33.9 Major depressive disorder, recurrent, unspecified; E66.9 Obesity, unspecified | CPT/HCPCS: 96127; 99212 ==

== ENCOUNTER 2025-06-05 06:26 | Day surgery (SDC) | payer MEDICARE, SELFPAY ==
--- OUTSIDE RECORDS SUMMARY | 2025-04-23 16:44 | XMS_ITS | Patient Health Record ---
Author Organization [facility] Address [address] [place] [address] Care Team Providers Care Sports Commentator Name Role Phone Surendra SPENCE, Loyall Primary Care Provider UnaRasta Desai Unavailable [phone] Allergies No Known Allergies Reason For Referral No Information Medications Medication SIG (Take, Route, Frequency, Duration) Notes Start Date End Date Status Losartan Potassium 100 MG 1 tablet Orall y Once a day Active dilTIAZem HCl ER 120 MG 1 capsule Orally Twice a day Active Omeprazole 20 MG 1 capsule Orally Onc e a day Active Fenofibrate 145 MG Oral for 90 Days Active Furosemide 20 MG Oral for 90 Days Active Atorvastatin Calcium 10 MG 1 tablet Oral ly Once a day Active Xarelto 20 MG TAKE 1 TABLET BY PHIL TH EVERY DAY Oral for 90 Days Active Problems Problem Type SNOMED Code ICD Code Onset Dates Problem Status W/U Status Risk Notes Problem Colon cancer screening (022684718) Colon cancer screening (V76.51) Active confirmed Problem Gastroesophageal reflux disease (335741445) GERD (gastroesophageal reflux disease) (530.81) Active confirmed Problem Colon cancer screening (256119566) Colon cancer screening (Z12.11) Active confirmed Problem Long-term current use of anticoagulant (226315314) prison (current) use of anticoagulants (Z79.01) Active confirmed Problem Preprocedural examination (096399962715920) Preprocedural examination (Z01.818) Active confirmed Vital Signs Blood pressure diastolic 11 mm Hg 02/28/2025 Height 68.5 in 02/28/2025 Blood pressure systolic 111 mm Hg 02/28/2025 Weight 271 lbs 02/28/2025 BMI 40.6 kg/m2 02/28/2025 Procedures Procedure Date Ordered Date Performed Result Body Sit e COLONOSCOPY 02/28/2025 N/A Encounters Encounter Location Date Provider Diagnosis [facility] [address] [place] [address] 02/28/2025 Rasta Sorto Colon cancer screeni ng Z12.11 ; prison (current) use of anticoagulants Z79.01 and Preprocedural examination Z01.818 Assessments Encounter Date Diagnosis (ICD Code) Assessment Notes Treatment Notes Treatment Clinical Notes Section Notes 02/28/2025 Colon cancer screening (ICD-10 - Z12.11) Overall, Rodolfo appears well from a GI standpoint. He is not having any new or worrisome GI complaints. His reflux has remained stable for many years on his omeprazole. His upper endoscopy in 2002 did not reveal any significant findings and therefore I do not think any intervention is required in that regard. I did recommend a follow-up screening colonoscopy given his last exam being over 10 years ago. We did review the rationale for this in regard to colon cancer prevention. Full consent has been obtained for this, including risks of bleeding and perforation. The procedure will be done with monitored anesthesia care. He was given the below instructions regarding adjustment of his medications for the procedure. Rodolfo was comfortable with this plan. Thank you again for allowing me to participate in Rodolfo's care. I shall continue to keep you advised of his progress. 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 He is not having any new or worrisome GI complaints. His reflux has remained stable for many years on his omeprazole. His upper endoscopy in 2002 did not reveal any significant findings and therefore I do not think any intervention is required in that regard. I did recommend a follow-up screening colonoscopy given his last exam being over 10 years ago. We did review the rationale for this in regard to colon cancer prevention. Full consent has been obtained for this, including risks of bleeding and perforation. The procedure will be done with monitored anesthesia care. He was given the below instructions regarding adjustment of his medications for the procedure. Rodolfo was comfortable with this plan. Thank you again for allowing me to participate in Rodolfo's care. I shall continue to keep you advised of his progress. 02/28/2025 Preprocedural examination (ICD-10 - Z01.818) Overall, Rodolfo appears well from a GI standpoint. He is not having any new or worrisome GI complaints. His reflux has remained stable for many years on his omeprazole. His upper endoscopy in 2002 did not reveal any significant findings and therefore I do not think any intervention is required in that regard. I did recommend a follow-up screening colonoscopy given his last exam being over 10 years ago. We did review the rationale for this in regard to colon cancer prevention. Full consent has been obtained for this, including risks of bleeding and perforation. The procedure will be done with monitored anesthesia care. He was given the below instructions regarding adjustment of his medications for the procedure. Rodolfo was comfortable with this plan. Thank you again for allowing me to participate in Rodolfo's care. I shall continue to keep you advised of his progress. Plan Of Treatment Pending Test Test Name Order Date COLONOSCOPY 02/28/2025 Future Test Test Name Order Date COLONOSCOPY 10/22/2014 Next Appt Details Provider Name:Rasta Sorto , 06/05/2025 07:30:00 AM, [address] [place] [address] , [place], [place], [id number], Insurance Providers Payer Name Payer Address Payer Phone Subscriber Number Group Number Insured Name Patient Relationship to Insured Coverage Start Date Coverage End Date MEDICARE OF [place] [address] [place] [address] [id number] CRISTOFER PUSHPA Self - patient is the insured 8 MEDEX ATTN CLAIMS [address] [place] [address] [id number] CRISTOFER PUSHPA Self - patient is the insured Medical (General) History Medical History History ICD Code GERD--EGD in 08/2003-small HH, no esopha gitis nor Estevez's HTN Anxiety Hyperlipidemia Denies [place],DM,CVA,Lung disease,renal dise ase Colonoscopy in 08/2003--no polyps, melan osis coli, internal hemorrhoids Afib-0n Xarelto--s/p 2 ablations--claudine Chen Negative screening colonoscopy in 2014 Surgical History Surgery Date(Month/Year) shoulder surgery x 2 on the right knee right replacement 11/2023 vocal cord polyp tonsils
[2025-06-03 14:23] VITALS: BMI 40.6
--- NOTE | 2025-06-04 12:01 | HO.ANESPROP2 ---
Documented by User: Adina Sanchez NP 06/04/25 13:20 HPI - Anesthesia Eval Consult details Narrative: 74 yr old male for colonoscopy PAF: s/p ablation 05/2024, on xarelto HFrEF (heart failure with reduced EF): on lasix JUAN JOSE: non-compliant with CPAP GERD: on PPI Aortic aneurysm: surveillance echo ordered 03/2025, prior 4.4 cm s/p TRK 05/2024 PMFSH Active Problems Active Problems: All Active Problems (Updated 06/03/25 @ 14:45 by Sherice Montenegro RN) Pruritic erythematous rash (Acute) Osteoarthritis of right knee (Acute) Erectile dysfunction (Acute) Preoperative examination (Acute) Right knee meniscal tear (Acute) Paroxysmal atrial fibrillation (Acute) Obesity (BMI 30-39.9) (Acute) Depression (Acute) Anxiety (Acute) Insomnia (Acute) Iron deficiency anemia (Acute) Vitamin D deficiency (Acute) GERD without esophagitis (Acute) Pure hypercholesterolemia (Acute) Benign essential hypertension (Acute) GERD (gastroesophageal reflux disease) (Acute) Past Medical History Medical History PAF (paroxysmal atrial fibrillation) HFrEF (heart failure with reduced ejection fraction) Cardiomyopathy First degree AV block Aortic root dilatation Daily consumption of alcohol JUAN JOSE (obstructive sleep apnea) HLD (hyperlipidemia) HTN (hypertension) Hiatal hernia Paroxysmal atrial fibrillation Obesity (BMI 30-39.9) Depression Anxiety Insomnia Iron deficiency anemia Vitamin D deficiency GERD without esophagitis Pure hypercholesterolemia Benign essential hypertension GERD (gastroesophageal reflux disease) Family History Family History Father Lung cancer Mother Afib Surgical History Surgical History History of vocal cord polypectomy Hx of tonsillectomy History of esophagogastroduodenoscopy (EGD) (2002) History of cardiac ablation for atrial fibrillation History of total right knee replacement H/O right knee surgery History of arthroscopic surgery of shoulder (~02/01/22) History of shoulder surgery History of colonoscopy Social History Social History Housing: House Are you a primary career coach to a significant other at home: No Do you presently have visiting nurse or other home services: No Alcohol intake: current Alcohol intake frequency: 3 or more drinks per day Alcohol type: beer Patient Tobacco Use Status: Former Tobacco user e-Cigarette/Vaping Use: Never Used Second Hand Smoke Exposure: Yes Use of substances other than those prescribed or required for medical reasons: No Have you been hit, kicked, punched, or otherwise hurt by someone within the past year? If so, by whom?: No Are you DNR?: No Advance Directives: No Advance Directives Information Provided: Yes Poor oral hygiene: No service: No Current occupational status: employed Cognitive needs: No Hearing needs: No Vision needs: No Meds Allergies Allergy/AdvReac Type Severity Reaction Status Date / Time No Known Allergies Allergy Verified 01/31/25 10:19 Home Medications ?Medication ?Instructions ?Recorded ?Confirmed ?Last Taken ?Type furosemide 20 mg tablet 20 mg PO DAILY 11/24/20 06/05/25 06/02/25 History diltiazem HCl 120 mg 120 mg PO DAILY 07/27/21 01/31/25 06/05/25 05:30 History capsule,extended release 24 hr rivaroxaban 20 mg tablet (Xarelto) 20 mg PO DAILY 04/05/22 06/03/25 Unknown History losartan 100 mg tablet 100 mg PO DAILY 08/24/22 06/03/25 Unknown History Exam Height,Weight and Vital Signs: Height 5 ft 8.5 in Weight 122.924 kg Pertinent Lab Results Pertinent Lab Results: Laboratory Tests 01/29/25 06:41 WBC 6.2 RBC 4.25 L Hgb 13.5 L Hct 41.5 L Plt Count 232 Sodium 140 Potassium 5.1 Chloride 108 BUN 12 Creatinine 0.93 Narrative Narrative: EKG 03/2025 sinus 1st degree AV block rate 72 ECHO 2022 Moderately dilated left atrium, EF 55-60%, mild AI, ascending aorta dilatation 4.4 cm Documented by User: Eladio Moreno MD 06/05/25 07:43 HPI - Anesthesia Eval Anesthesia Pre-Procedure Meds If yes to any meds - educate patient: Pt education - increased risk of aspiration and/or euvolemic DKA [facility] Past Medical History Medical History PAF (paroxysmal atrial fibrillation) HFrEF (heart failure with reduced ejection fraction) Cardiomyopathy First degree AV block Aortic root dilatation Daily consumption of alcohol JUAN JOSE (obstructive sleep apnea) HLD (hyperlipidemia) HTN (hypertension) Hiatal hernia Paroxysmal atrial fibrillation Obesity (BMI 30-39.9) Depression Anxiety Insomnia Iron deficiency anemia Vitamin D deficiency GERD without esophagitis Pure hypercholesterolemia Benign essential hypertension GERD (gastroesophageal reflux disease) Cognitive capacity: henry Functional capacity: independent ambulation Family History Family History Father Lung cancer Mother Afib Family history of problems with anesthesia: No Surgical History Surgical History History of vocal cord polypectomy Hx of tonsillectomy History of esophagogastroduodenoscopy (EGD) (2002) History of cardiac ablation for atrial fibrillation History of total right knee replacement H/O right knee surgery History of arthroscopic surgery of shoulder (~02/01/22) History of shoulder surgery History of colonoscopy History of Problems with Anesthesia: No Social History Social History Housing: House Are you a primary career coach to a significant other at home: No Do you presently have visiting nurse or other home services: No Alcohol intake: current Alcohol intake frequency: 3 or more drinks per day Alcohol type: beer Patient Tobacco Use Status: Former Tobacco user e-Cigarette/Vaping Use: Never Used Second Hand Smoke Exposure: Yes Use of substances other than those prescribed or required for medical reasons: No Have you been hit, kicked, punched, or otherwise hurt by someone within the past year? If so, by whom?: No Are you DNR?: No Advance Directives: No Advance Directives Information Provided: Yes Poor oral hygiene: No service: No Current occupational status: employed Cognitive needs: No Hearing needs: No Vision needs: No Meds Allergies Allergy/AdvReac Type Severity Reaction Status Date / Time No Known Allergies Allergy Verified 01/31/25 10:19 Home Medications ?Medication ?Instructions ?Recorded ?Confirmed ?Last Taken ?Type furosemide 20 mg tablet 20 mg PO DAILY 11/24/20 06/05/25 06/02/25 History diltiazem HCl 120 mg 120 mg PO DAILY 07/27/21 01/31/25 06/05/25 05:30 History capsule,extended release 24 hr rivaroxaban 20 mg tablet (Xarelto) 20 mg PO DAILY 04/05/22 06/03/25 Unknown History losartan 100 mg tablet 100 mg PO DAILY 08/24/22 06/03/25 Unknown History Exam Exam Date and Time: 06/05/2025 Airway Mallampati Class: II TM Dist: >3cm Neck ROM: Full Denture: Upper (upper partial) Partial: Upper and Lower (has both upper and partial denture) Loose/Missing/Broken Teeth: Yes (replced by denture) Heart: rrr Lungs: cts Other: normaly oriente Assessment and Plan Assessment Anesthesia Assessment: Chart Reviewed Final Anesthetic Review Family History of Problems with Anesthesia: No History of Problems with Anesthesia: No NPO: Yes ASA Class: III Final Preanesthetic Review: No Changes in Pt Med Stat and Consent Obtained/Reviewed Patient Risk: Low Procedure Risk: Low Anesthetic Plan Anesthetic Plan: MAC: and Agree w/ Assess. and Plan Disposition: Standard PACU
[2025-06-05 06:36] VITALS: BMI 39.7
[2025-06-05 06:55] VITALS: BP 142/73; PULSE 90; RESP 20; TEMP 36.4; O2SAT 100
[2025-06-05] MEDS: Lactated Ringers 1,000 ML 100 ML IVCONT (07:12)
[2025-06-05 08:35] VITALS: BP 115/62; PULSE 81; RESP 20; TEMP 36.1; O2SAT 97
--- NOTE | 2025-06-05 08:37 | P.BOP_ITS ---
Brief Operative Note Date of Service: 06/05/25 Pre-op diagnosis: Screening Post-op diagnosis: other (Polyp) Procedure: Colonoscopy to the cecum with cold snare polypectomy and placement of 1 Resolution clip Surgeon: Rasta Sorto MD Anesthesia: MAC Was an Finishing Department Supervisor used for this Procedure?: No Estimated blood loss (mL): 2.0 Pathology: other (A. Rectal polyp) Condition: stable Disposition: PACU
[2025-06-05 08:48] VITALS: BP 127/65; PULSE 80; RESP 18; TEMP 36.1; O2SAT 99
--- NOTE | 2025-06-05 09:09 | OP_ITS ---
DATE OF SERVICE: 06/05/2025 SURGEON: Rasta Sorto MD INDICATIONS: The patient presents for evaluation of colorectal cancer screening. Full consent has been obtained from him for this, including risks of bleeding and perforation. PREOPERATIVE DIAGNOSIS: Colorectal cancer screening. POSTOPERATIVE DIAGNOSIS: PROCEDURE PERFORMED: Colonoscopy to the cecum with cold snare polypectomy x1 and placement of 1 resolution clip. ESTIMATED BLOOD LOSS: COMPLICATIONS: ANESTHESIA: Medication used, monitored anesthesia care. ASSISTANTS: SPECIMENS: POSTOPERATIVE DIAGNOSES: Colorectal cancer screening, rectal polyp, diverticulosis, and internal hemorrhoids. DESCRIPTION OF PROCEDURE: The patient was placed in the left lateral decubitus position. The digital rectal exam revealed no abnormalities. The Olympus video pediatric colonoscope was entered into the rectum and advanced easily to the cecum. Once in the cecum, I did identify normal-appearing cecal pouch with appendiceal orifice and a normal-appearing ileocecal valve. The entire cecum and ileocecal valve appeared normal. There was transillumination of light deep in the right lower quadrant. The scope was slowly withdrawn assessing all mucosal surfaces carefully. Preparation was excellent. There was a mild amount of sigmoid diverticulosis. There was no sign of any colitis nor angiodysplasia. The only polyp I visualized was in the rectum. This was grossly adenomatous and was approximately 6 mm in diameter. This was removed by cold snare polypectomy and recovered by suction. The polypectomy site appeared clean, without any sign of residual polyp nor significant bleeding. A single resolution clip was applied with good deployment and good hemostasis as he had to go back on his Xarelto. The scope was retroflexed visualizing some friable internal hemorrhoids, but no other pathology. The scope was straightened and withdrawn from the patient. He tolerated procedure well and was returned to the recovery area in stable condition. IMPRESSION: 1. Rectal polyp. 2. Mild diverticulosis. 3. Friable internal hemorrhoids. PLAN: The results of the pathology will be checked. Assuming this is adenomatous, I would recommend an another colonoscopy in 5 years. He was advised to resume his Xarelto by tomorrow. He was advised to stay off all aspirin and NSAIDs long-term while on Xarelto. He will otherwise see me on a p.r.n. basis. MD BRADLEY Petersen/DAVID / [phone] RIAN
== END 2025-06-05 09:10 | disposition home or self-care (01) ==
PROVIDERS: PCP Internal Medicine; Visit Provider Internal Medicine
PROC: 0DJD8ZZ Inspection of Lower Intestinal Tract, Via Natural or Artificial Opening Endoscopic (ICD-10-PCS; CPT 45378; principal; 2025-06-05 07:30)
DX: Z12.11 Encounter for screening for malignant neoplasm of colon (principal); D12.8 Benign neoplasm of rectum; K57.30 Diverticulosis of large intestine without perforation or abscess without bleeding; K64.8 Other hemorrhoids; K21.9 Gastro-esophageal reflux disease without esophagitis; I10 Essential (primary) hypertension; E78.5 Hyperlipidemia, unspecified; I48.0 Paroxysmal atrial fibrillation; F41.9 Anxiety disorder, unspecified; G47.33 Obstructive sleep apnea (adult) (pediatric); Z79.01 Long term (current) use of anticoagulants; Z79.899 Other long term (current) drug therapy; Z98.890 Other specified postprocedural states; Z87.891 Personal history of nicotine dependence
CPT/HCPCS: 45385; 88305; J2704

== ENCOUNTER 2025-06-07 06:31 | Outpatient (REF) | payer MEDICARE, SELFPAY ==
--- OUTSIDE RECORDS SUMMARY | 2025-06-07 06:34 | XMS_ITS | Patient Health Record ---
Author Organization [facility] Address [address] [place] [address] Care Team Providers Care Monument Stonecutter Name Role Phone Surendra SPENCE, Termo Primary Care Provider Rasta Allen Unavailable [phone] Allergies No Known Allergies Results Component Value Reference Range Notes Pathology (Not yet reviewed by provider) Interpretation: Performing Lab:[facility], [address] [place] [phone] Notes/Report: Reason For Referral No Information Medications Medication [...] Status Risk Notes Problem Colon cancer screening (097205703) Colon cancer screening (V76.51) Active confirmed Problem Gastroesophageal reflux disease (873078395) GERD (gastroesophageal reflux disease) (530.81) Active confirmed Problem Colon cancer screening (627838044) Colon cancer screening (Z12.11) Active confirmed Problem Long-term current use of anticoagulant (572999939) [facility] (current) use of anticoagulants (Z79.01) Active confirmed Problem Preprocedural examination (381364082866281) Preprocedural examination (Z01.818) Active confirmed Vital Signs Blood pressure diastolic 11 mm Hg 02/28/2025 Height 68.5 in 02/28/2025 Blood pressure systolic 111 mm Hg 02/28/2025 Weight 271 lbs 02/28/2025 BMI 40.6 kg/m2 02/28/2025 Procedures Procedure Date Ordered Date Performed Result Body Sit e COLONOSCOPY 02/28/2025 N/A Encounters Encounter Location Date Provider Diagnosis [facility] [place] Outpatient [address] [place], [place] [phone] 06/05/2025 Rasta Sorto [facility] [address] [place] [address] 02/28/2025 Rasta Noreen Colon cancer screeni ng Z12.11 ; [facility] (current) use of anticoagulants Z79.01 and Preprocedural [...] keep you advised of his progress. 02/28/2025 [facility] (current) use of anticoagulants (ICD-10 - Z79.01) [...] Test Test Name Order Date COLONOSCOPY 02/28/2025 Pathology 06/05/2025 Future Test Test Name Order Date COLONOSCOPY 10/22/2014 Insurance Providers Payer Name Payer Address Payer Phone Subscriber Number Group Number Insured Name Patient Relationship to Insured Coverage Start Date Coverage End Date MEDICARE OF [place] [address] [place] [address] [id number] PUSHPA CLEVELAND Self - patient is the insured 8 MEDEX ATTN CLAIMS [address] [place] [address] [id number] PUSHPA CLEVELAND Self - patient is the insured Medical (General) History Medical History History ICD Code GERD--EGD in 08/2003-small HH, no esopha gitis nor Estevez's HTN Anxiety Hyperlipidemia Denies [place],DM,CVA,Lung disease,renal dise ase Colonoscopy in 08/2003--no polyps, melan osis coli, internal hemorrhoids Afib-0n Xarelto--s/p 2 ablations--sees D r. Chen Negative screening colonoscopy in 2014 Surgical History Surgery Date(Month/Year) shoulder surgery x 2 on the right knee right replacement 11/2023 vocal cord polyp tonsils
--- OUTSIDE RECORDS SUMMARY | 2025-06-07 06:34 | XMS_ITS | Clinical Summary ---
Author Organization [address] [place] [address] [place] [phone] Phone Care Team Providers Care Data Operations Leader Name Role Phone Ronal Agosto MD Primary Care Provider + [phone] Allergies No known active allergies Medications atorvastatin (LIPITOR) 10 mg tablet Take 10 mg by mouth daily. 0 Active fenofibrate (TRICOR) 145 mg tablet Take 145 mg by mouth daily. 7 Active LORazepam (ATIVAN) 0.5 mg tablet Take 0.5 mg by mouth daily as needed. Active omeprazole (PRILOSEC) 20 mg tablet,delayed release (DR/EC) Take 20 mg by mouth daily. Active Xarelto 20 mg tablet TAKE 1 TABLET BY MOUTH EVERY DAY 90 tablet 2 5 Active dilTIAZem CD (CARDIZEM CD) 120 mg 24 hr capsule Take 1 capsule (120 mg total) by mouth 1 (one) time each day. 90 capsule 2 5 Active furosemide (LASIX) 20 mg tabletIndications :Paroxysmal atrial fibrillation (CMS/HCC V24, CMS/HCC V28),Cardiomyopat hy, unspecified (CMS/HCC V24, CMS/HCC V28) TAKE 1 TABLET BY MOUTH EVERY DAY 90 tablet 1 5 Active losartan (COZAAR) 100 mg tablet TAKE 1 TABLET DAILY 90 tablet 3 5 Active Active Problems Problem Noted Date Diagnosed Date SOB (shortness of breath) 07/10/2024 Aneurysm of ascending aorta without rupture (CMS /HCC V24) 11/23/2023 Cardiomyopathy (CMS/HCC V24, CMS/HCC V28) 2021 HFrEF (heart failure with re duced ejection fraction) (CMS/HCC V24, CMS/HCC V28) 01/11/2022 Atrial fibrillation with RVR (CMS/HCC V24, CMS/H CC V28) 01/08/2022 Obesity 01/08/2022 PAF (paroxysmal atrial fibri llation) (CMS/[facility] V24, CMS/HCC V28) 01/08/2022 Primary hypertension 01/08/2022 Encounters Date Type Department Care Team Description 05/03/2025 Telephone [facility] - [address] [place] [address] Linsey Thompson MD Procedure (Xarelto hold ) 03/13/2025 9:40 AM EDT Office Visit [facility] - [address] [place] [address] Gabrielle Verduzco PA Atrial fibrillation with RVR (CMS/HCC V24, CMS/HCC V28) (Primary Dx); Aneurysm of ascending aorta without rupture ([facility]/HCC V24); PAF (paroxysmal atrial fibrillation) (CMS/HCC V24, CMS/HCC V28); Primary hypertension; SOB (shortness of breath) from Last 3 Months Medical History Medical History Date Comments Obesity [...] Sign Reading Time Taken Comments Blood Pressure 120/68 03/13/2025 9:54 AM EDT Pulse 72 03/13/2025 9:54 AM EDT Temperature - - Respiratory Rate - - Oxygen Saturation 99% 03/13/2025 9:54 AM EDT Inhaled Oxygen Concentration - - Weight 122 kg (270 lb) 03/13/2025 9:54 AM EDT Height 175.3 cm (5' 9 ) 03/13/2025 9:54 AM EDT Body Mass Index 39.87 03/13/2025 9:54 AM EDT Plan of Treatment Upcoming Encounters Date Type Department Care Team (Late st Contact Info) Description 09/12/2025 9:30 AM EDT Ancillary Procedure [facility] - [address] [place] [address] 09/19/2025 9:40 AM EST Office Visit [facility] - [address] [place] [address] Gabrielle Verduzco PA [address] [place] [address] Health Maintenance Due Date Last Done Comments DTaP,Tdap,and Td Vaccines (1 - Tdap) 1971 Zoster Vaccines (1 of 2) 2002 RSV Immunization Adult Patients (1 - Risk 60-74 years 1-dose series) 2012 Abdominal Aortic Aneurysm (AAA) Screen 10/23/2022 Cholesterol Screening (Lipid Panel) 10/23/2022 Colorectal Cancer Screening: Colonoscopy 10/23/2022 Falls Risk Assessment 10/23/2022 Hepatitis C Screening 10/23/2022 Hypertension/CHF/CAD Annual BMP Blood Test 10/23/2022 Medicare Annual Wellness Visit 10/23/2022 Social Influencers of Health Screening 10/23/2022 COVID-19 Vaccine ( season) 2024 02/06/2021, 01/09/2021 Depression Screening 11/14/2024 Influenza Vaccine (#1) 2025 , 10/18/2019, 10/11/2018, Additional history exists Pneumococcal Vaccine: 50+ Years Completed 06/13/2018, 05/24/2018 HIB Vaccines Aged Out No longer eligi [...] age to complete this topic Meningococcal B Vaccine Aged Out No l onger eligible based on patient's age to complete this topic RSV Immunization Patients Under 20 months Aged Out No longer eligible based on patient's age to complete this topic Varicella Vaccines Aged Out No longer eligible based on patient's age to complete this topic Procedures Procedure Name Priority Date/Time Associated Diagnosis Comments ECG 12-LEAD Routine 03/13/2025 10:05 AM EDT Atrial fibrillation with RVR (CMS/HCC V24, CMS/HCC V28) from Last 3 Months Results * ECG 12 lead (03/13/2025 10:05 AM EDT) Ventricular Rate ECG 72 BPM GEMUSE Atrial Rate 72 BPM GEMUSE P-R Interval 216 ms GEMUSE QRS Duration 84 ms GEMUSE Q-T Interval 390 ms GEMUSE QTc 427 ms GEMUSE P Wave [place] 88 degrees GEMUSE R [place] 58 degrees GEMUSE T [place] 63 degrees GEMUSE ECG Interpretation Sinus rhythm with 1st degree A-V block No previous ECGs available Confirmed by GEOVANI THOMPSON ([id number]) on 03/23/2025 11:49:10 PM GEMUSE 03/13/2025 10:0 4 AM EDT 03/23/2025 11:49 PM EDT us Gabrielle PAGE ECG ORDERABLES Edited Result - Final GEMUSE from Last 3 Months Insurance MEDICARE [facility] Care Teams Data Operations Leader Relationship Specialty Start Date End Date Ronal Aogsto MD [address] [place] [address] [address] [place], [place] PCP - General 07/15/17
[2025-06-07 10:16] LABS: MANUAL DIFF FLAG NO
[2025-06-07 10:21] LABS: Hematocrit 39.9 % (42.0-52.0); Hemoglobin 13.2 g/dl (14.0-18.0); Imm Gran Abs Auto 0.02 X10*3/uL (0.00-0.03); Imm Gran Pct Auto 0.4 % (0.0-0.4); Lymphocytes Absolute Auto 1.0 X10*3/uL (1.2-4.9); Mean Corpuscular HGB Conc 33.1 g/dl (31.0-36.0); Mean Corpuscular Hemoglobin 32.7 pg (27.0-33.0); Mean Corpuscular Volume 98.8 fL (80.0-98.0); NRBC Abs Auto 0.000 X10*3/uL (0.0-0.012); NRBC Pct Auto 0.0 /100WBC (0.0-0.2); Platelet Count 209 X10*3/uL (160-400); Red Blood Count 4.04 X10*6/uL (4.60-5.80); White Blood Count 4.7 X10*3/uL (4.8-10.8)
[2025-06-07 10:47] LABS: Alanine Aminotransferase 26 U/L (0-40); Albumin Level 4.1 g/dL (3.5-5.0); Alkaline Phosphatase 41 U/L (39-117); Anion Gap 14 (12-20); Aspartate Amino Transferase 44 U/L (5-37); Blood Urea Nitrogen 9 mg/dL (9-16); Calcium 8.6 mg/dL (8.4-10.2); Carbon Dioxide 23 mmol/L (22-29); Chloride 109 mmol/L (96-108); Cholesterol 138 mg/dL (<200); Estimated Glomerular Filt Rate > 60; HDL Cholesterol 33 mg/dL (>40); Potassium 4.5 mmol/L (3.3-5.1); Sodium 141 mmol/L (135-145); Total Protein 6.9 g/dL (6.5-8.0); Triglycerides 225 mg/dL (<150)
[2025-06-07 10:52] LABS: Appearance Urine Clear; Glucose Urine UA Negative (Negative); PH 6.0 (5.0-9.0); Specific Gravity - Urine 1.015 (1.005-1.025); UMIC TRIGGER UACC YES
[2025-06-07 11:31] LABS: Free T4 (Free Thyroxine) 0.95 ng/dL (0.71-1.85)
== END 2025-06-07 06:32 | disposition home or self-care (01) ==
LOC: HO.HMGCLDS 06:31
PROVIDERS: PCP Internal Medicine; Visit Provider Internal Medicine
DX: D64.9 Anemia, unspecified (principal); E78.00 Pure hypercholesterolemia, unspecified
CPT/HCPCS: 36415; 80053; 80061; 81001; 84439; 84443; 85025

== ENCOUNTER 2025-06-11 09:19 | Outpatient (AMB) | payer MEDICARE, SELFPAY ==
[2025-06-11 09:22] VITALS: BP 110/74; PULSE 84; O2SAT 98; BMI 40.0
--- NOTE | 2025-06-11 09:22 | MHC.PC.OV ---
Vital Signs 06/11/25 09:22 Height 5 ft 8.5 in Weight 267 lb 4 oz BMI 40.0 BP 110/74 Blood Pressure Location Lt brachial Position Sitting Pulse 84 Pulse Source Pulse Oximeter Pulse Oximetry (%) 98 Oxygen Delivery Method Room Air Intake Visit Reasons: HTN, hyperlipidemia, PAF, GERD Brusher Warp Required: No Accompanied by: Self / Same As Patient Allergies No Known Allergies Allergy (Verified 06/11/25 09:39) Medication List - Last Reconciled 06/11/25 by Ronal Agosto MD atorvastatin 10 mg PO DAILY diltiazem HCl CD 120 mg PO DAILY escitalopram oxalate 10 mg PO DAILY fenofibrate nanocrystallized 145 mg PO DAILY 90 days furosemide 20 mg PO DAILY lorazepam 0.5 mg PO BID PRN 30 days losartan 100 mg PO DAILY omeprazole 20 mg PO DAILY 90 days rivaroxaban (Xarelto) 20 mg PO DAILY sildenafil 50 mg PO DAILY PRN triamcinolone acetonide 0.5% 1 appl topical BID zolpidem 10 mg PO BEDTIME PRN 30 days Tobacco use date assessed: 06/11/25 Fall risk assessment: No Falls in past year Last assessed Fall Risk: 06/11/25 Dental Screening Dental Screen Date: 06/11/25 Did you have a dental visit in the last 12 months?: Yes Did you have a dental problem in the last 6 months where you did not have access to dental care?: No Was dental information given to patient?: Patient has dentist HPI HTN, hyperlipidemia, PAF, GERD HPI Details Patient comes in today for his follow up visit States that he feels okay He denies any headaches or dizziness Denies any chest pains, no SOB No nausea/vomiting, no abdominal pain No change in bowel habits noted Needs his Lorazepam Rx refilled He had his follow up labs done a few days ago - to discuss his results [facility] Medical History PAF (paroxysmal atrial fibrillation) HFrEF (heart failure with reduced ejection fraction) Cardiomyopathy First degree AV block Aortic root dilatation Daily consumption of alcohol [place] JOSE (obstructive sleep apnea) HLD (hyperlipidemia) HTN (hypertension) Hiatal hernia Paroxysmal atrial fibrillation Obesity (BMI 30-39.9) Depression Anxiety Insomnia Iron deficiency anemia Vitamin D deficiency GERD without esophagitis Pure hypercholesterolemia Benign essential hypertension GERD (gastroesophageal reflux disease) Surgical History History of vocal cord polypectomy Hx of tonsillectomy History of esophagogastroduodenoscopy (EGD) (2002) History of cardiac ablation for atrial fibrillation History of total right knee replacement H/O right knee surgery History of arthroscopic surgery of shoulder (~02/01/22) History of shoulder surgery History of colonoscopy Family History Father Lung cancer Mother Afib Social History Housing: House Are you a primary home care administrator to a significant other at home: No Do you presently have visiting nurse or other home services: No Alcohol intake: current Alcohol intake frequency: 3 or more drinks per day Alcohol type: beer Patient Tobacco Use Status: Former Tobacco user e-Cigarette/Vaping Use: Never Used Second Hand Smoke Exposure: Yes service: No Current occupational status: employed Cognitive needs: No Hearing needs: No Vision needs: No Questionnaire PHQ-9 Over the last 2 weeks, how often have you been bothered by any of the following problems? 1. Little interest or pleasure in doing things: not at all 2. Feeling down, depressed, or hopeless: not at all 3. Trouble falling or staying asleep, or sleeping too much: not at all 4. Feeling tired or having little energy: not at all 5. Poor appetite or overeating: not at all 6. Feeling bad about yourself - or that you are a failure or have let yourself or your family down: not at all 7. Trouble concentrating on things, such as reading the newspaper or watching television: not at all 8. Moving or speaking so slowly that other people could have noticed. Or the opposite - being so fidgety or restless that you have been moving around a lot more than usual: not at all 9. Thoughts that you would be better off or of hurting yourself in some way: not at all Total score: 0 Depression Screening Interpretation: Negative Depression Screening Done: Yes 80347 - PHQ-9 Billing: Yes Source: Developed by Drs. Rasta Ramachandran, Gisela B.W. Carlos Eduardo Booth and colleagues, with an educational alvaro from [employer] [address]. Thrive Questionnaire Date Thrive assessed: 06/11/25 I am a: Patient What is your living situation today?: I have a steady place to live Within the past 12 months, did the food you bought not last and you didn't have the money to get more?: I choose not to answer this question Within the past 12 months, did you worry whether your food would run out before you got money to buy more?: I choose not to answer this question Do you have trouble paying for medicines?: No Do you have trouble getting transportation to medical appointments?: No Do you have trouble paying your heating and electricity bill?: No Do you have trouble taking care of your child, family member or friend?: No Do you have trouble with day-to-day activities such as bathing, preparing meals, shopping, managing finances, etc.?: No Are you currently unemployed and looking for a job?: No Are you interested in more education?: No Please select the resources that you would like help with: None Currently or been in a relationship where the following occur: No concerns reported THRIVE Score: 0 AUDIT C Alcohol Use Questionnaire (AUDIT-C) 1. How often do you have a drink containing alcohol?: 4 or more times a week 2. How many drinks containing alcohol do you have on a typical day when you are drinking?: 3 or 4 3. How often do you have six or more drinks on one occasion?: Monthly Total Score: 7 Score Reviewed/Action Taken: Yes ALLA-7 AMB Questionnaire ALLA-7 Date ALLA - 7 assessed: 06/11/25 Feeling nervous, anxious, or on edge: 0 = Not at all Not being able to stop or control worryin = Not at all Worrying too much about different things: 0 = Not at all Trouble relaxin = Not at all Being so restless that it is hard to sit still: 0 = Not at all Becoming easily annoyed or irritable: 0 = Not at all Feeling afraid as if something awful might happen: 0 = Not at all Total ALLA-7 score (0-4 normal; 5-9 mild; 10-14 moderate; 15-21 severe): 0 Source: Developed by Drs. Rasta Ramachandran, Carlos Eduardo Gfof and colleagues, with an educational alvaro from [employer] [address]. Review of Systems Const Denies chills, Denies fatigue, Denies fever(s) and Denies headache(s) ENT Denies dysphagia, Denies dizziness, Denies otalgia, Denies headache(s), Denies neck pain, Denies odynophagia and Denies sore throat Card Denies chest pain, Denies irregular heart rhythm, Denies palpitations and Denies dyspnea Resp Denies chest congestion, Denies cough and Denies dyspnea GI Denies abdominal pain, Denies constipation, Denies dysphagia, Denies heartburn, Denies diarrhea, Denies nausea, Denies odynophagia and Denies vomiting Denies difficulty urinating, Reports erectile dysfunction (lately), Denies dysuria, Denies nocturia and Denies urinary frequency Musc Denies back pain, Denies arthralgias and Denies neck pain Skin/Breast Denies rash Neuro Denies dizziness and Denies headache(s) Endo Denies fatigue and Denies palpitations Physical exam (Primary Care) Vital Signs: Oxygen Delivery Method Room Air 06/11/25 09:22 Tobacco/Smoking Status: Tobacco use Status Tobacco use date assessed 01/31/25 01/31/25 09:54 Patient Tobacco Use Status Former Tobacco user 06/05/25 08:37 e-Cigarette/Vaping Use Never Used 01/31/25 09:48 Depression Screening Interpretation: Negative Thrive Assessment: Date of Thrive Assessment Date Thrive assessed 01/31/25 01/31/25 09:54 Currently or been in a relationship where the following occur: No concerns reported Const General: no acute distress and alert HENMT Ears: TM's normal bilaterally and EAC's normal Throat: Yes posterior oropharynx normal and Yes tonsils normal (no TP congestion noted) Neck Neck: Yes supple and No lymphadenopathy Thyroid: Thyroid normal Resp Auscultation: clear to auscultation bilaterally, no rales and no wheezes Cardio Rate: regular rate Rhythm: regular rhythm Heart sounds: no murmurs GI Palpation (GI): Soft to palpation and nontender Auscultation: normal bowel sounds General: Yes no CVA tenderness Back/Spine/Pelvis Back: no CVA tenderness Thoracic/Lumbar Spine: No lumbar spinal tenderness Skin Rashes: no rashes Extrem General: Yes no clubbing, cyanosis or edema Results Reviewed Results Reviewed: Laboratory Tests 01/29/25 06/07/25 06/07/25 06:41 06:35 06:40 WBC 4.7 L Hgb 13.2 L Hct 39.9 L Plt Count 209 Sodium 141 Potassium 4.5 Creatinine 0.93 Estimated GFR > 60 Fasting Glucose 84 Calcium 8.6 AST 44 H ALT 26 Triglycerides 225 H Cholesterol 138 LDL Cholesterol, Calc 60 HDL Cholesterol 33 L 25-OH Vitamin D Total 43.9 TSH 4.14 H Free T4 0.95 Ur Specific [place] 1.015 Urine Protein Negative Urine Glucose (UA) Negative Urine Blood Negative Urine Nitrite Negative Ur Leukocyte Esterase Trace H Coding Level of Care Code Est Pt Level 4 (37420) Diagnoses Pure hypercholesterolemia E78.00 Benign essential hypertension I10 Paroxysmal atrial fibrillation I48.0 GERD without esophagitis K21.9 Post-traumatic osteoarthritis of right knee M17.31 Osteoarthritis type: post-traumatic Vitamin D deficiency E55.9 Iron deficiency anemia secondary to inadequate dietary iron intake D50.8 Iron deficiency anemia type: inadequate dietary iron intake Erectile dysfunction, unspecified erectile dysfunction type N52.9 Erectile dysfunction type: unspecified Pruritic erythematous rash L29.8 Insomnia, unspecified type G47.00 Insomnia type: unspecified Anxiety F41.9 Episode of recurrent major depressive disorder, unspecified depression episode severity F33.9 Depression Type: major depressive disorder Major depression recurrence: recurrent Active/Remission status: currently active Major depression episode severity: unspecified Obesity (BMI 30-39.9) E66.9 Additional Codes PHQ-9 - 19385 - PHQ-9 Billing: Yes ([id number]) Assessment & Plan Assessment & Plan (1) Pure hypercholesterolemia: Code(s): E78.00 - Pure hypercholesterolemia, unspecified Category: Medical Plan: Results of his labs done a few days ago reviewed and discussed with patient - he is cautioned that his serum triglyceride level has increased significantly from previous but his LDL cholesterol remains well-controlled Reinforced low cholesterol diet - patient states that he has been eating out a lot more often lately as he has family members visiting from [id number] at present Continue Atorvastatin 10 mg QD and Fenofibrate 145 mg QD Will recheck his labs and fasting lipids in 4 months for follow up (2) Benign essential hypertension: Code(s): I10 - Essential (primary) hypertension Category: Medical Plan: Reinforced low sodium diet - goal is systolic BP of at least 130 mm or less Continue Losartan 100 mg QD; he is also on Diltiazem ER 120 mg QD, which helps with both his HTN and PAF (3) Paroxysmal atrial fibrillation: Comment: S/P cardioversion with Dr. Chen at [facility] Code(s): I48.0 - Paroxysmal atrial fibrillation Category: Medical Plan: Patient currently remains in sinus rhythm on Diltiazem ER 120 mg QD and Sotalol 160 mg BID States that he has not had any further episodes/sensation of palpitations since his 2nd cardiac ablation on 06/11/[address] Chen at [facility] Continue Xarelto 20 mg QD for thromboembolism prophylaxis (4) GERD without esophagitis: Code(s): K21.9 - Gastro-esophageal reflux disease without esophagitis Category: Medical Plan: Dietary restrictions reinforced Continue Omeprazole 20 mg QD (5) Osteoarthritis of right knee: Code(s): M17.11 - Unilateral primary osteoarthritis, right knee Category: Medical Qualifiers: Osteoarthritis type: post-traumatic Qualified Code(s): M17.31 - Unilateral post-traumatic osteoarthritis, right knee Plan: S/P total right knee arthroplasty on 11/29/2023 with [facility] He also had arthroscopic meniscal surgery / repair on 09/08/2022 and completed PT for his knee - states that he has been doing well since Follow up with [facility] as scheduled (6) Vitamin D deficiency: Code(s): E55.9 - Vitamin D deficiency, unspecified Category: Medical Plan: Continue Vitamin D3 2000 units QD (7) Iron deficiency anemia: Code(s): D50.9 - Iron deficiency anemia, unspecified Category: Medical Qualifiers: Iron deficiency anemia type: inadequate dietary iron intake Qualified Code(s): D50.8 - Other iron deficiency anemias Plan: Continue Feosol 200 mg QD Will continue to monitor his CBC regularly (8) Erectile dysfunction: Code(s): N52.9 - Male erectile dysfunction, unspecified Category: Medical Qualifiers: Erectile dysfunction type: unspecified Qualified Code(s): N52.9 - Male erectile dysfunction, unspecified Plan: Continue Sildenafil 50 mg QD PRN (9) Pruritic erythematous rash: Code(s): L29.8 - Other pruritus Category: Medical Plan: Continue Triamcinolone acetonide 0.5% cream BID PRN (10) Insomnia: Code(s): G47.00 - Insomnia, unspecified Category: Medical Qualifiers: Insomnia type: unspecified Qualified Code(s): G47.00 - Insomnia, unspecified Plan: Sleep hygiene reinforced Continue Zolpidem 10 mg Q HS PRN (11) Anxiety: Code(s): F41.9 - Anxiety disorder, unspecified Category: Medical Plan: Continue Lorazepam 0.5 mg BID PRN - Rx refilled (12) Depression: Code(s): F32.9 - Major depressive disorder, single episode, unspecified Category: Medical Qualifiers: Depression Type: major depressive disorder Major depression recurrence: recurrent Active/Remission status: currently active Major depression episode severity: unspecified Qualified Code(s): F33.9 - Major depressive disorder, recurrent, unspecified Plan: Continue Escitalopram 10 mg QD He has not been seeing psychiatry in a while now - feels that he is doing well on his current Rx and does not need to see psychiatry at this time (13) Obesity (BMI 30-39.9): Code(s): E66.9 - Obesity, unspecified Category: Medical Plan: Reinforced diet/exercise as tolerated/lose weight Plan Follow up in 4 months Orders: Orders Lipid Panel 4 Months E78.00 - Pure hypercholesterolemia, unspecified Complete Blood Count Auto Diff 4 Months D64.9 - Anemia, unspecified Comprehensive [place]. Panel Fast 4 Months E78.00 - Pure hypercholesterolemia, unspecified TSH reflex Free T4 4 Months E78.00 - Pure hypercholesterolemia, unspecified UA CC w/rflx Micro + Cult 4 Months R30.0 - Dysuria Vitamin D 25-OH Total 4 Months E55.9 - Vitamin D deficiency, unspecified Medications: Refilled lorazepam 0.5 mg PO BID PRN 60 tabs 0RF anxiety 30 days
--- OUTSIDE RECORDS SUMMARY | 2025-06-11 09:46 | XMS_ITS | Clinical Summary ---
Author Organization [address] [place] [address] [place] [phone] Phone Care Team Providers Care Laundry Agent Name Role Phone Ronal Agosto MD Primary Care Provider + [phone] Allergies No known active allergies Medications atorvastatin [...] Obesity 01/08/2022 PAF (paroxysmal atrial fibri llation) (CMS/[facility] V24, CMS/HCC V28) 01/08/2022 Primary hypertension 01/08/2022 Encounters Date Type Department Care Team Description 05/03/2025 Telephone [facility] - [address] [place] [address] Linsey Thompson MD Procedure (Xarelto hold ) 03/13/2025 9:40 AM EDT Office Visit [facility] - [address] [place] [address] Gabrielle Verduzco PA Atrial fibrillation with RVR (CMS/HCC V24, CMS/HCC V28) (Primary Dx); Aneurysm of ascending aorta without rupture ([facility]/HCC V24); PAF (paroxysmal atrial fibrillation) (CMS/HCC V24, [...] Description 09/12/2025 9:30 AM EDT Ancillary Procedure [facility] - [address] [place] [address] 09/19/2025 9:40 AM EST Office Visit [facility] - [address] [place] [address] Gabrielle Verduzco PA [address] [place] [address] Health Maintenance Due Date Last Done Comments [...] GEMUSE QTc 427 ms GEMUSE P Wave [place] 88 degrees GEMUSE R [place] 58 degrees GEMUSE T [place] 63 degrees GEMUSE ECG Interpretation Sinus rhythm with 1st degree A-V block No previous ECGs available Confirmed by GEOVANI THOMPSON ([id number]) on 03/23/2025 11:49:10 PM GEMUSE 03/13/2025 10:0 4 AM EDT 03/23/2025 11:49 PM EDT us Gabrielle PAGE ECG ORDERABLES Edited Result - Final GEMUSE from Last 3 Months Insurance MEDICARE [facility] Care Teams Laundry Agent Relationship Specialty Start Date End Date Ronal Agosto MD [address] [place] [address] [address] [place], [place] PCP - General 07/15/17
--- OUTSIDE RECORDS SUMMARY | 2025-06-11 09:46 | XMS_ITS | Patient Health Record ---
Author Organization [facility] Address [address] [place] [address] Care Team Providers Care Tamping Machine Operator Road Forms Name Role Phone Surendra SPENCE, [place] Primary Care Provider Rasta Allen Unavailable [phone] Allergies No Known Allergies Results Component Value Reference Range Notes Pathology (Not yet reviewed by provider) Interpretation: Performing Lab:[facility], [address] [place] [phone] Notes/Report: Reason For Referral No Information Medications [...] Status Risk Notes Problem Colon cancer screening (290445608) Colon cancer screening (V76.51) Active confirmed Problem Gastroesophageal reflux disease (589605583) GERD (gastroesophageal reflux disease) (530.81) Active confirmed Problem Colon cancer screening (857670264) Colon cancer screening (Z12.11) Active confirmed Problem Long-term current use of anticoagulant (435097421) intermediate (current) use of anticoagulants (Z79.01) Active confirmed Problem Preprocedural examination (110144262271069) Preprocedural examination (Z01.818) Active confirmed Vital Signs Blood pressure diastolic 11 mm Hg 02/28/2025 Height 68.5 in 02/28/2025 Blood pressure systolic 111 mm Hg 02/28/2025 Weight 271 lbs 02/28/2025 BMI 40.6 kg/m2 02/28/2025 Procedures Procedure Date Ordered Date Performed Result Body Sit e COLONOSCOPY 02/28/2025 N/A Encounters Encounter Location Date Provider Diagnosis [facility] [address] [place], [place] [phone] 06/05/2025 Rasta Sorto [facility] [address] [place] [address] 02/28/2025 Rasta Noreen Colon cancer screeni ng Z12.11 ; intermediate (current) use of anticoagulants Z79.01 and Preprocedural [...] keep you advised of his progress. 02/28/2025 intermediate (current) use of anticoagulants (ICD-10 - Z79.01) [...] Date MEDICARE OF [place] [address] [place] [address] [id number] [place] Self - patient is the insured 8 [employer] ATTN CLAIMS [address] [place] [address] [phone] [id number] [place] Self - patient is the [...]
== END 2025-06-11 09:49 | disposition home or self-care (01) ==
LOC: HO.HMCH 09:20
PROVIDERS: PCP Internal Medicine; Visit Provider Internal Medicine
DX: E78.00 Pure hypercholesterolemia, unspecified (principal); I48.0 Paroxysmal atrial fibrillation; E66.9 Obesity, unspecified; Z68.41 Body mass index [BMI] 40.0-44.9, adult; I10 Essential (primary) hypertension; K21.9 Gastro-esophageal reflux disease without esophagitis; M17.31 Unilateral post-traumatic osteoarthritis, right knee; E55.9 Vitamin D deficiency, unspecified; D50.8 Other iron deficiency anemias; N52.9 Male erectile dysfunction, unspecified; L29.8 Other pruritus; G47.00 Insomnia, unspecified

== ENCOUNTER → 2025-06-11 09:19 | Outpatient (BNVA) | payer MEDICARE, SELFPAY | PROVIDERS: PCP Internal Medicine; Visit Provider Internal Medicine | DX: E78.00 Pure hypercholesterolemia, unspecified (principal); I10 Essential (primary) hypertension; I48.0 Paroxysmal atrial fibrillation; K21.9 Gastro-esophageal reflux disease without esophagitis; E55.9 Vitamin D deficiency, unspecified; M17.31 Unilateral post-traumatic osteoarthritis, right knee; D50.8 Other iron deficiency anemias; N52.9 Male erectile dysfunction, unspecified; L29.89 Other pruritus; G47.00 Insomnia, unspecified; F41.9 Anxiety disorder, unspecified; F33.9 Major depressive disorder, recurrent, unspecified; E66.9 Obesity, unspecified; Z68.41 Body mass index [BMI] 40.0-44.9, adult; Z71.3 Dietary counseling and surveillance | CPT/HCPCS: 96127; 99212 ==

== ENCOUNTER 2025-08-14 10:51 | Outpatient (AMB) | payer MEDICARE, SELFPAY ==
--- OUTSIDE RECORDS SUMMARY | 2025-06-05 03:30 | XMS_ITS ---
Author Organization [facility] Address [address] [place] [address] Care Team Providers Care Post Tensioning Ironworker Name Role Phone Ronal Agosto MD Primary Care Provider UnaRasta Desai [phone] REASON FOR VISIT screening Encounters Encounter Location Date Provider Diagnosis [facility] [place] Outpatient [address] [place] [phone] 06/05/2025 Rasta Sorto Plan Of Treatment No Information Progress Notes * PUSHPA CLEVELANDDOB:1950 (75 yo M)Acc No.[id number]:06/05/2025 COLON WITH MAC Patient: PUSHPA CARRASQUILLO Provider: Juwan Sorto MD :1950 A ge:74 Y S ex:Male Date:06/05/2025 Address:[address] [place], [place] [phone] Pcp:Ronal Agosto MD Subjective: * Chief Complaints: * 1 . Screening. * Medical History: Objective: * Vitals: Assessment: Plan: * Treatment: * * The named appointment provid er may or may not be the originator of this progress note, and it is not deemed complete until electronically signed by the appointment provider. Sign off status: Pending * Provider: Juwan Sorto MD Date: 0 06/05/2025 Generated for Printi ng/Faxing/eTransmitting on: 1 12:27 PM EDT
[2025-08-14 10:54] VITALS: BP 154/78; PULSE 72; TEMP 36.3; O2SAT 100; BMI 39.9
--- NOTE | 2025-08-14 10:54 | MHC.PC.OV ---
Vital Signs 08/14/25 10:54 Height 5 ft 8.5 in Weight 266 lb 6 oz BMI 39.9 BP 154/78 H Blood Pressure Location Lt brachial Position Sitting Pulse 72 Pulse Source Pulse Oximeter Temp 97.3 F Temp Source Temporal Artery Scan Pulse Oximetry (%) 100 Oxygen Delivery Method Room Air Intake Visit Reasons: ear pain and headache Allergies No Known Allergies Allergy (Verified 08/14/25 10:57) Medication List - Last Reconciled 08/14/25 by Ron Sagastume MD atorvastatin 10 mg PO DAILY diltiazem HCl CD 120 mg PO DAILY fenofibrate nanocrystallized 145 mg PO DAILY 90 days furosemide 20 mg PO DAILY lidocaine HCl 2% (Lidocaine Viscous) 1 appl mucous membrane BID PRN lorazepam 0.5 mg PO BID PRN 30 days losartan 100 mg PO DAILY omeprazole 20 mg PO DAILY 90 days rivaroxaban (Xarelto) 20 mg PO DAILY sildenafil 50 mg PO DAILY PRN triamcinolone acetonide 0.5% 1 appl topical BID zolpidem 10 mg PO BEDTIME PRN 30 days Tobacco use date assessed: 08/14/25 Fall risk assessment: No Falls in past year Last assessed Fall Risk: 08/14/25 Dental Screening Dental Screen Date: 08/14/25 Did you have a dental visit in the last 12 months?: Yes Did you have a dental problem in the last 6 months where you did not have access to dental care?: No Was dental information given to patient?: Patient has dentist HPI HPI Comments History of Present Illness Details The patient is a 75-year-old male presenting with persistent headaches and earaches. Approximately two weeks ago, the patient began experiencing headaches and earaches, initially thought to be related to a toothache. He consulted his dentist, who diagnosed herpetic gingivostomatitis and prescribed Valtrex, which was confirmed by a second dentist. Despite the treatment, the patient continued to experience headaches and earaches, prompting a visit to urgent care where an ear infection was suspected, and amoxicillin was prescribed. The patient reports persistent sensitivity on the left side of the tongue and a sore throat, with the headaches being particularly severe at night. The patient has been using Tylenol to manage the headache pain, which provides some relief. He completed the prescribed course of Valtrex but is still taking amoxicillin. [facility] Medical History PAF (paroxysmal atrial fibrillation) HFrEF (heart failure with reduced ejection fraction) Cardiomyopathy First degree AV block Aortic root dilatation Daily consumption of alcohol JUAN JOSE (obstructive sleep apnea) HLD (hyperlipidemia) HTN (hypertension) Hiatal hernia Paroxysmal atrial fibrillation Obesity (BMI 30-39.9) Depression Anxiety Insomnia Iron deficiency anemia Vitamin D deficiency GERD without esophagitis Pure hypercholesterolemia Benign essential hypertension GERD (gastroesophageal reflux disease) Surgical History History of vocal cord polypectomy Hx of tonsillectomy History of esophagogastroduodenoscopy (EGD) (2002) History of cardiac ablation for atrial fibrillation History of total right knee replacement H/O right knee surgery History of arthroscopic surgery of shoulder (~02/01/22) History of shoulder surgery History of colonoscopy Family History Father Lung cancer Mother Afib Social History Housing: House Are you a primary home health care physician to a significant other at home: No Do you presently have visiting nurse or other home services: No Alcohol intake: current Alcohol intake frequency: 3 or more drinks per day Alcohol type: beer Patient Tobacco Use Status: Former Tobacco user e-Cigarette/Vaping Use: Never Used Second Hand Smoke Exposure: Yes service: No Current occupational status: employed Cognitive needs: No Hearing needs: No Vision needs: No Questionnaire PHQ-9 Over the last 2 weeks, how often have you been bothered by any of the following problems? 1. Little interest or pleasure in doing things: not at all 2. Feeling down, depressed, or hopeless: not at all 3. Trouble falling or staying asleep, or sleeping too much: not at all 4. Feeling tired or having little energy: not at all 5. Poor appetite or overeating: not at all 6. Feeling bad about yourself - or that you are a failure or have let yourself or your family down: not at all 7. Trouble concentrating on things, such as reading the newspaper or watching television: not at all 8. Moving or speaking so slowly that other people could have noticed. Or the opposite - being so fidgety or restless that you have been moving around a lot more than usual: not at all 9. Thoughts that you would be better off or of hurting yourself in some way: not at all Total score: 0 Depression Screening Interpretation: Negative Depression Screening Done: Yes Source: Developed by Drs. Rasta Ramachandran, Gisela Booth, Carlos Eduardo Delgado and colleagues, with an educational alvaro from [employer]. Thrive Questionnaire Date Thrive assessed: 06/11/25 I am a: Patient What is your living situation today?: I have a steady place to live Within the past 12 months, did the food you bought not last and you didn't have the money to get more?: I choose not to answer this question Within the past 12 months, did you worry whether your food would run out before you got money to buy more?: I choose not to answer this question Do you have trouble paying for medicines?: No Do you have trouble getting transportation to medical appointments?: No Do you have trouble paying your heating and electricity bill?: No Do you have trouble taking care of your child, family member or friend?: No Do you have trouble with day-to-day activities such as bathing, preparing meals, shopping, managing finances, etc.?: No Are you currently unemployed and looking for a job?: No Are you interested in more education?: No Please select the resources that you would like help with: None Currently or been in a relationship where the following occur: No concerns reported THRIVE Score: 0 AUDIT C Alcohol Use Questionnaire (AUDIT-C) 1. How often do you have a drink containing alcohol?: 4 or more times a week 2. How many drinks containing alcohol do you have on a typical day when you are drinking?: 3 or 4 3. How often do you have six or more drinks on one occasion?: Monthly Total Score: 7 Score Reviewed/Action Taken: Yes ALLA-7 AMB Questionnaire ALLA-7 Date ALLA - 7 assessed: 06/11/25 Feeling nervous, anxious, or on edge: 0 = Not at all Not being able to stop or control worryin = Not at all Worrying too much about different things: 0 = Not at all Trouble relaxin = Not at all Being so restless that it is hard to sit still: 0 = Not at all Becoming easily annoyed or irritable: 0 = Not at all Feeling afraid as if something awful might happen: 0 = Not at all Total ALLA-7 score (0-4 normal; 5-9 mild; 10-14 moderate; 15-21 severe): 0 Source: Developed by Drs. Rasta Ramachandran, Gisela Booth, Carlos Eduardo Delgado and colleagues, with an educational alvaro from [employer]. Review of Systems Const Details: Positives besides what was mentioned in HPI are in BOLD Constitutional: No Weight Change, No Fever, No Chills, No Night Sweats, No Fatigue, No Malaise ENT/Mouth: No Hearing Changes, No Ear Pain, No Nasal Congestion, No Sinus Pain, No Hoarseness, No sore throat, No Rhinorrhea, No Swallowing Difficulty Eyes: No Eye Pain, No Swelling, No Redness, No Foreign Body, No Discharge, No Vision Changes Cardiovascular: No Chest Pain, No SOB, No PND, No Dyspnea on Exertion, No Orthopnea, No Claudication, No Edema, No Palpitations Respiratory: No Cough, No Sputum, No Wheezing, No Smoke Exposure, No Dyspnea Gastrointestinal: No Nausea, No Vomiting, No Diarrhea, No Constipation, No Pain, No Heartburn, No Anorexia, No Dysphagia, No Hematochezia, No Melena, No Flatulence, No Jaundice Genitourinary: No Dysmenorrhea, No DUB, No Dyspareunia, No Dysuria, No Urinary Frequency, No Hematuria, No Urinary Incontinence, No Urgency, No Flank Pain, No Urinary Flow Changes, No Hesitancy Musculoskeletal: No Arthralgias, No Myalgias, No Joint Swelling, No Joint Stiffness, No Back Pain, No Neck Pain, No Injury History Skin: No Skin Lesions, No Pruritis, No Hair Changes, No Breast/Skin Changes, No Nipple Discharge Neuro: No Weakness, No Numbness, No Paresthesias, No Loss of Consciousness, No Syncope, No Dizziness, No Headache, No Coordination Changes, No Recent Falls Psych: No Anxiety/Panic, No Depression, No Insomnia, No Personality Changes, No Delusions, No Rumination, No SI/HI/AH/VH, No Social Issues, No Memory Changes, No Violence/Abuse Hx., No Eating Concerns Heme/Lymph: No Bruising, No Bleeding, No Transfusions History, No Lymphadenopathy Endocrine: No Polyuria, No Polydipsia, No Temperature Intolerance Physical exam (Primary Care) Vital Signs: Last Vital Signs Temp 97.3 F 08/14/25 10:54 Pulse 72 08/14/25 10:54 BP 154/78 H 08/14/25 10:54 Pulse Ox 100 08/14/25 10:54 Oxygen Delivery Method Room Air 08/14/25 10:54 BMI result Body Mass Index 39.9 Tobacco/Smoking Status: Tobacco use Status Tobacco use date assessed 08/14/25 08/14/25 11:00 Patient Tobacco Use Status Former Tobacco user 08/14/25 11:00 e-Cigarette/Vaping Use Never Used 08/14/25 11:00 PHQ-9: PHQ-9 Score PHQ-9: Total score 0 08/14/25 11:00 Depression Screening Interpretation: Negative Thrive Assessment: Date of Thrive Assessment Date Thrive assessed 06/11/25 08/14/25 11:00 Currently or been in a relationship where the following occur: No concerns reported Const Other: Pertinent findings are in BOLD GENERAL APPEARANCE NAD, activity normal for age, well developed/ well nourished, no cyanosis, pallor, or diaphoresis. EYES lids/conjunctiva normal. EARS/NOSE/THROAT Mucous membranes moist, nares normal, lips/teeth normal uvula midline without oral pharyngeal erythema, exudate or swelling TMs normal bilaterally. No lymphangitis/lymphedema. HEAD/NECK normocephalic atraumatic, no facial trauma, neck is supple. RESPIRATORY respiratory effort normal, speaks in full sentences, no tripod position, no accessory muscle use. Lungs clear to auscultation without rhonchi, wheezes, rales CARDIAC Regular rate and rhythm, no edema. ABDOMINAL Soft, ND/NT. No evidence of fluid wave. No pulsatile masses on exam, rebound tenderness, Reyes sign or pain over Mcburney's point. MUSCLES/EXTREMITIES No abnormal range of motion, no swelling. SKIN Warm, pink and dry. No rashes, dermatoses, petechiae or lesions. NEUROLOGICAL Speech is clear and appropriate. Normal level of consciousness. Gait and coordination are normal. 5/5 strength in all extremities. PSYCH Normal mood and affect. Judgement/competence is appropriate Tongue: one lesion on left lateral side of the tongue. Coding Level of Care Code Est Pt Level 4 (55353) Diagnoses Herpetic gingivostomatitis B00.2 Headache R51.9 Earache H92.09 Time Spent (min) 30 Assessment & Plan Assessment & Plan (1) Herpetic gingivostomatitis: Code(s): B00.2 - Herpesviral gingivostomatitis and pharyngotonsillitis Category: Medical Plan: - Continue monitoring symptoms as the condition may take time to resolve. - Consider using viscous lidocaine for symptomatic relief of oral pain. - Follow up with the dentist if symptoms do not improve in one month. (2) Headache: Code(s): R51.9 - Headache, unspecified Category: Medical Plan: - Continue using Tylenol for pain management as needed. - Monitor symptoms and consider further evaluation if headaches persist. (3) Earache: Code(s): H92.09 - Otalgia, unspecified ear Category: Medical Plan: - Continue amoxicillin as prescribed for suspected ear infection. - Monitor symptoms and reassess if no improvement is noted. Plan I discussed with the patient that the symptoms of herpetic gingivostomatitis may take time to resolve and that the prescribed treatment was appropriate. We talked about using viscous lidocaine for pain relief and the importance of monitoring symptoms. I advised the patient to follow up with the dentist if there is no improvement in one month and to continue using Tylenol for headache management. Medications: New lidocaine HCl 2% (Lidocaine Viscous) 1 appl mucous membrane BID PRN 600 mL 0RF pain
--- OUTSIDE RECORDS SUMMARY | 2025-08-14 12:27 | XMS_ITS | Patient Health Record ---
Author Organization [facility] Address [address] [place] [address] Care Team Providers Care Pharmacy Coordinator Name Role Phone Surendra SPENCE, [place] Primary Care Provider Rasta Allen Unavailable [phone] Allergies No Known Allergies Results Component Value Reference Range Notes Pathology (Not yet reviewed by provider) Interpretation: Performing Lab:[facility] [place], [address] [place] [phone] Notes/Report: Reason For Referral No Information Medications [...] Status Risk Notes Problem Colon cancer screening (818969090) Colon cancer screening (V76.51) Active confirmed Problem Gastroesophageal reflux disease (359436175) GERD (gastroesophageal reflux disease) (530.81) Active confirmed Problem Colon cancer screening (958344956) Colon cancer screening (Z12.11) Active confirmed Problem Long-term current use of anticoagulant (602095895) extermination supervisor (current) use of anticoagulants (Z79.01) Active confirmed Problem Preprocedural examination (161473163097901) Preprocedural examination (Z01.818) Active confirmed Vital Signs Blood pressure diastolic 11 mm Hg 02/28/2025 Height 68.5 in 02/28/2025 Blood pressure systolic 111 mm Hg 02/28/2025 Weight 271 lbs 02/28/2025 BMI 40.6 kg/m2 02/28/2025 Procedures Procedure Date Ordered Date Performed Result Body Sit e COLONOSCOPY 02/28/2025 N/A Encounters Encounter Location Date Provider Diagnosis [facility] [address] [place], [place] [phone] 06/05/2025 Rasta Sorto [facility] [address] [place] [address] 02/28/2025 Rasta Noreen Colon cancer screeni ng Z12.11 ; senior care (current) use of anticoagulants Z79.01 and Preprocedural [...] keep you advised of his progress. 02/28/2025 extermination supervisor (current) use of anticoagulants (ICD-10 - Z79.01) [...] Date MEDICARE OF [place] [address] [place] [address] [id number] [place] Self - patient is the insured 8 [employer] ATTN CLAIMS [address] [place] [address] [id number] [place] Self - patient is the insured Medical (General) History Medical History History ICD Code GERD--EGD in 08/2003-small HH, no esopha gitis nor Estevez's HTN Anxiety Hyperlipidemia Denies ME,DM,CVA,Lung disease,renal dise ase Colonoscopy in 08/2003--no polyps, melan osis coli, internal hemorrhoids Afib-0n Xarelto--s/p 2 ablations--sees D r. Chen Negative screening colonoscopy in 2014 Surgical History Surgery Date(Month/Year) shoulder surgery x 2 on the right knee right replacement 11/2023 vocal cord polyp tonsils
--- OUTSIDE RECORDS SUMMARY | 2025-08-14 12:27 | XMS_ITS | Clinical Summary ---
Author Organization [address] [place] [address] [place] [phone] Phone Care Team Providers Care Bryologist Name Role Phone Ronal Agosto MD Primary Care Provider + [phone] Allergies No known active allergies Medications atorvastatin (LIPITOR) 10 mg tablet Take 10 mg by mouth daily. 08/17/20 20 Active fenofibrate (TRICOR) 145 mg tablet Take 145 mg by mouth daily. 08/05/20 17 Active LORazepam (ATIVAN) 0.5 mg tablet Take 0.5 mg by mouth daily as needed. Active omeprazole (PRILOSEC) 20 mg tablet,delayed release (DR/EC) Take 20 mg by mouth daily. Active Xarelto 20 mg tablet TAKE 1 TABLET BY MOUTH EVERY DAY 90 tablet 2 11/29/19 25 Active dilTIAZem CD (CARDIZEM CD) 120 mg 24 hr capsule Take 1 capsule (120 mg total) by mouth 1 (one) time each day. 90 capsule 2 02/05/20 25 Active losartan (COZAAR) 100 mg tablet TAKE 1 TABLET DAILY 90 tablet 3 03/18/20 25 Active furosemide (LASIX) 20 mg tabletIndication s:Paroxysmal atrial fibrillation (CMS/HCC V24, CMS/HCC V28),Cardiomyopa thy, unspecified (CMS/HCC V24, CMS/HCC V28) TAKE 1 TABLET BY MOUTH EVERY DAY 90 tablet 2 07/29/20 25 Active furosemide (LASIX) 20 mg tabletIndication s:Paroxysmal atrial fibrillation (CMS/HCC V24, CMS/HCC V28),Cardiomyopa thy, unspecified (CMS/HCC V24, CMS/HCC V28) TAKE 1 TABLET BY MOUTH EVERY DAY 90 tablet 1 02/16/20 025 Discontinued Active Problems Problem Noted Date Diagnosed Date SOB (shortness of breath) 07/10/2024 Aneurysm of ascending aorta without rupture ([facility] V24) 11/23/2023 Cardiomyopathy ([facility] [place]24, [facility] V28) 2021 HFrEF (heart failure with re duced ejection fraction) ([facility] V24, [facility] V28) 01/11/2022 Atrial fibrillation with RVR ([facility] V24, [facility] V28) 01/08/2022 Obesity 01/08/2022 PAF (paroxysmal atrial fibri llation) ([facility] V24, [facility] V28) 01/08/2022 Primary hypertension 01/08/2022 Encounters Date Type Department Care Team Description 06/03/2025 Telephone [facility] Cardiology [facility] [address] [place] [address] Ronal Agosto MD from Last 3 Months Medical History Medical [...] Description 09/12/2025 9:30 AM EDT Ancillary Procedure [facility] Cardiology [facility] [address] [place] [address] 09/17/2025 1:10 PM EST Office Visit [facility] [address] [place] [address] Gabrielle Verduzco [facility] [address] [place] [phone] Health Maintenance Due Date Last Done Comments Colorectal Cancer Screening: Colonoscopy 1952 DTaP,Tdap,and Td Vaccines (1 - Tdap) 1971 Zoster Vaccines (1 of 2) 2002 Abdominal Aortic Aneurysm (AAA) Screen 10/23/2022 Cholesterol Screening (Lipid Panel) 10/23/2022 Falls Risk Assessment 10/23/2022 Hepatitis C Screening 10/23/2022 Hypertension/CHF/CAD Annual BMP Blood Test 10/23/2022 Medicare Annual Wellness Visit 10/23/2022 Social Influencers of Health Screening 10/23/2022 Depression Screening 11/14/2024 COVID-19 Vaccine ( season) 2025 02/06/2021, 01/09/2021 Influenza Vaccine (#1) 2025 , 10/18/2019, 10/11/2018, Additional history exists RSV Immunization Adult Patients (1 - 1-dose 75+ series) 2027 Pneumococcal Vaccine: 50+ Years Completed 06/13/2018, 05/24/2018 [...] complete [place] [id number] MEDICARE [facility] Care Teams Bryologist Relationship Specialty Start Date End Date Ronal Agosto MD [address] [place] [address] [address] [place] PCP - General 07/15/17
== END 2025-08-14 11:31 | disposition home or self-care (01) ==
LOC: HO.HMCH 10:52
PROVIDERS: PCP Internal Medicine; Visit Provider Internal Medicine
DX: B00.2 Herpesviral gingivostomatitis and pharyngotonsillitis (principal); R51.9 Headache, unspecified; H92.09 Otalgia, unspecified ear

== ENCOUNTER → 2025-08-14 10:51 | Outpatient (BNVA) | payer MEDICARE, SELFPAY | PROVIDERS: PCP Internal Medicine; Visit Provider Internal Medicine | DX: H92.03 Otalgia, bilateral (principal); R51.9 Headache, unspecified; B00.2 Herpesviral gingivostomatitis and pharyngotonsillitis | CPT/HCPCS: 96127; 99212 ==

== ENCOUNTER 2025-10-14 06:54 | Outpatient (REF) | payer MEDICARE, SELFPAY ==
--- OUTSIDE RECORDS SUMMARY | 2025-06-05 02:30 | XMS_ITS ---
Author Organization [facility] Address [address] [place] [address] Care Team Providers Care Night Coordinator Name Role Phone Ronal Agosto MD Primary Care Provider UnaRasta Desai [phone] REASON FOR VISIT screening Encounters Encounter Location Date Provider Diagnosis [facility] [place] Outpatient [address] [place] [phone] 06/05/2025 Rasta Sorto Plan Of Treatment No Information Progress Notes * PUSHPA CLEVELANDDOB:1950 (75 yo M)Acc No.[id number]:06/05/2025 COLON WITH MAC Patient: PUSHPA CARRASQUILLO Provider: Juwan Sorto MD :1950 A ge:74 Y S ex:Male Date:06/05/2025 Address:[address] [place], [place] [phone] Pcp:Ronal Agosto MD Subjective: * Chief Complaints: * S creening Billing Information: * Procedure Codes: * The named appointment provid er may or may not be the originator of this progress note, and it is not deemed complete until electronically signed by the appointment provider. Sign off status: Pending * Provider: Juwan Sorto MD Date: 0 06/05/2025 Generated for Vasyli ng/Fagilbertog/eTransmitting on: 1 12/15/2024 06:57 AM EST
--- OUTSIDE RECORDS SUMMARY | 2025-10-14 06:57 | XMS_ITS | Patient Health Record ---
Author Organization [facility] Address [address] [place] [address] Care Team Providers Care Government Contracts Manager Name Role Phone Surendra SPENCE, [place] Primary Care Provider Rasta Allen Unavailable [phone] Allergies No Known Allergies Results Component Value Reference Range Notes Pathology (Not yet reviewed by provider) Interpretation: Performing Lab:[facility], [address] [place] [id number] Notes/Report: Reason For Referral No Information Medications Medication SIG (Take, Route, Frequency, Duration) Notes Start Date End Date Status Losartan Potassium 100 MG Tablet 1 tablet Orally Once a day Active dilTIAZem HCl ER 120 MG Capsule Extended Release 12 Hour 1 capsule Orally Twice a day Active Omeprazole 20 MG Capsule Delayed Release 1 capsule Orally Once a day Active Fenofibrate 145 MG Tablet Oral; Duration: 90 Days Active Furosemide 20 MG Tablet Oral; Duration: 90 Days Active Atorvastatin Calcium 10 MG Tablet 1 tablet Orally Once a day Active Xarelto 20 MG Tablet TAKE 1 TABLET BY 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 Section Notes: Nonsmoker > 10 yrs, 3-4 beer s QD Nonsmoker > 10 yrs, 3-4 beer s QD Problems Problem Type SNOMED Code ICD Code Onset Dates Problem Status W/U Status Risk Notes Problem Colon cancer screening (283495125) Colon cancer screening (V76.51) Active confirmed Problem Gastroesophageal reflux disease (966394570) GERD (gastroesophageal reflux disease) (530.81) Active confirmed Problem Colon cancer screening (206653084) Colon cancer screening (Z12.11) Active confirmed Problem Long-term current use of anticoagulant (809606250) residential (current) use of anticoagulants (Z79.01) Active confirmed Problem Preprocedural examination (996949638469172) Preprocedural examination (Z01.818) Active confirmed Vital Signs Blood pressure diastolic 11 mm Hg 02/28/2025 Height 68.5 in 02/28/2025 Blood pressure systolic 111 mm Hg 02/28/2025 Weight 271 lbs 02/28/2025 BMI 40.6 kg/m2 02/28/2025 Procedures Procedure Date Ordered Date Performed Result Body Sit e COLONOSCOPY 02/28/2025 N/A Encounters Encounter Location Date Provider Diagnosis [facility] Outpatient [address], [place] [id number] 06/05/[address] [facility] [address] [place] [address] 02/28/2025 Rasta Sorto Colon cancer screeni ng Z12.11 ; terminal worker (current) use of anticoagulants Z79.01 and Preprocedural [...] keep you advised of his progress. 02/28/2025 terminal worker (current) use of anticoagulants (ICD-10 - Z79.01) [...] Date MEDICARE OF [place] [address] JOSE IBRAHIM [id number] [place] Self - patient is the insured 8 [employer] ATT[employer] CLAIMS [address] [place] [address] [id number] [place] Self - patient is the insured Medical (General) History Medical History History ICD Code GERD--EGD in 08/2003-small HH, no esopha gitis nor Estevez's HTN Anxiety Hyperlipidemia Denies ME,DM,CVA,Lung disease,renal dise ase Colonoscopy in 08/2003--no polyps, melan osis coli, internal hemorrhoids Afib-0n Xarelto--s/p 2 ablations--claudine Chen Negative screening colonoscopy in 2014 Surgical History Surgery Date(Month/Year) tonsils vocal cord polyp knee right replacement 11/2023 shoulder surgery x 2 on the right
--- OUTSIDE RECORDS SUMMARY | 2025-10-14 06:58 | XMS_ITS | Encounter Summary ---
Author Organization [facility] Address [address] [place] [address] Care Team Providers Care Clearing Supervisor Name Role Phone Ronal Agosto MD Primary Care Provider + [phone] Encounter Details Date Type Department Care Team (Late st Contact Info) Description 09/26/2025 Results Follow-Up [facility] [address] [facility] [address] [place] [phone] Gabrielle Verduzco PA [facility] [address] [place] [id number] Social History Tobacco Use Types Packs/Day Years Used Date Smoking Tobacco: Former Cigarettes 0 Q uit: 11/14/1997 Smokeless Tobacco: Never Alcohol Use Standard Drinks/Week Comments Yes 12 (1 standard drink = 0.6 oz pu re alcohol) Sex and Gender Information Value Date Recorded Sex Assigned at Not on file Legal Sex Male 2:11 PM EST Gender Identity Not on file Sexual Orientation Not on file documented as of this encounter Plan of Treatment Not on file documented as of this encounter Visit Diagnoses Not on filedocumented in this encounter Care Teams Clearing Supervisor Relationship Specialty Start Date End Date Ronal Agosto MD [address] [place] [address] [address] [place] PCP - General 07/15/17 documented as of this encounter
--- OUTSIDE RECORDS SUMMARY | 2025-10-14 06:58 | XMS_ITS | Clinical Summary ---
Author Organization [address] [place] [address] [place] [phone] Phone Care Team Providers Care Help Desk Support Specialist Name Role Phone Ronal Agosto MD Primary Care Provider + [phone] Allergies No known active allergies Medications atorvastatin (LIPITOR) 10 mg tablet Take 10 mg by mouth daily. 0 Active fenofibrate (TRICOR) 145 mg tablet Take 145 mg by mouth daily. 7 Active LORazepam (ATIVAN) 0.5 mg tablet Take 0.5 mg by mouth daily as needed. Active omeprazole (PRILOSEC) 20 mg tablet,delayed release (DR/EC) Take 20 mg by mouth daily. Active dilTIAZem CD (CARDIZEM CD) 120 mg 24 hr capsule Take 1 capsule (120 mg total) by mouth 1 (one) time each day. 90 capsule 2 5 Active losartan (COZAAR) 100 mg tablet TAKE 1 TABLET DAILY 90 tablet 3 5 Active furosemide (LASIX) 20 mg tabletIndications :Paroxysmal atrial fibrillation (CMS/HCC V24, CMS/HCC V28),Cardiomyopat hy, unspecified (CMS/HCC V24, CMS/HCC V28) TAKE 1 TABLET BY MOUTH EVERY DAY 90 tablet 2 5 Active rivaroxaban (Xarelto) 20 mg tablet TAKE 1 TABLET BY MOUTH EVERY DAY 90 tablet 3 5 Active Active Problems Problem Noted Date Diagnosed Date SOB (shortness of breath) 07/10/2024 Aneurysm of ascending aorta without rupture (CMS /HCC V24) 11/23/2023 Cardiomyopathy (CMS/HCC V24, CMS/HCC V28) 2021 HFrEF (heart failure with re duced ejection fraction) (CMS/HCC V24, CMS/HCC V28) 01/11/2022 Atrial fibrillation with RVR (CMS/HCC V24, CMS/H CC V28) 01/08/2022 Obesity 01/08/2022 PAF (paroxysmal atrial fibri llation) (CMS/HCC V24, CMS/HCC V28) 01/08/2022 Primary hypertension 01/08/2022 Encounters Date Type Department Care Team Description 09/26/2025 Results Follow-Up [facility] [address] [place] [address] Gabrielle Verduzco PA 09/25/2025 9:40 AM EST Office Visit [facility] [address] [place] [address] Gabrielle Verduzco PA Atrial fibrillation with RVR (CMS/HCC V24, CMS/HCC V28) (Primary Dx); Aneurysm of ascending aorta without rupture ([facility]/HCC V24); Primary hypertension 09/12/2025 11:00 AM EDT Ancillary Procedure [facility] - [address] [place] [address] Atrial fibrillation with RVR (CMS/HCC V24, CMS/HCC V28); Aneurysm of ascending aorta without rupture (CMS/HCC V24); PAF (paroxysmal atrial fibrillation) (CMS/HCC V24, CMS/HCC V28); Primary hypertension; SOB (shortness of breath) from Last 3 Months Medical History Medical History Date Comments Obesity DX:Obesity Covid 10/2020 DX:COVID Social History Tobacco Use Types Packs/Day Years Used Date Smoking Tobacco: Former Cigarettes 0 Q uit: 11/14/1997 Smokeless Tobacco: Never Tobacco Cessation:Counseling Given: Not Answered Alcohol Use Standard Drinks/Week Comments Yes 12 (1 standard drink = 0.6 oz pu re alcohol) Sex and Gender Information Value Date Recorded Sex Assigned at Not on file Legal Sex Male 2:11 PM EST Gender Identity Not on file Sexual Orientation Not on file Obstetrics History Last Filed Vital Signs Vital Sign Reading Time Taken Comments Blood Pressure 134/74 09/25/2025 10:02 AM EST Pulse 68 09/25/2025 9:40 AM EST Temperature - - Respiratory Rate - - Oxygen Saturation 97% 09/25/2025 9:40 AM EST Inhaled Oxygen Concentration - - Weight 122 kg (269 lb) 09/25/2025 9:40 AM EST Height 175.3 cm (5' 9 ) 09/25/2025 9:40 AM EST Body Mass Index 39.72 09/25/2025 9:40 AM EST Plan of Treatment Health Maintenance Due Date Last Done Comments [...] 2025 02/06/2021, 01/09/2021 Influenza Vaccine (#1) 2025 2, 10/18/2019, 10/11/2018, Additional history exists RSV Immunization [...] Date/Time Associated Diagnosis Comments ECG 12-LEAD Routine 09/25/2025 10:01 AM EST Atrial fibrillation with RVR (CMS/HCC V24, CMS/HCC V28) TRANSTHORACIC ECHOCARDIOGRAM (TTE) COMPLETE Routine 09/12/2025 11:50 AM EDT Atrial fibrillation with RVR (CMS/HCC V24, CMS/HCC V28) Aneurysm of ascending aorta without rupture (CMS/HCC V24) PAF (paroxysmal atrial fibrillation) (CMS/HCC V24, CMS/HCC V28) Primary hypertension SOB (shortness of breath) from Last 3 Months Results * ECG 12 lead (09/25/2025 10:01 AM EST) Ventricular Rate ECG 68 BPM GEMUSE Atrial Rate 68 BPM GEMUSE P-R Interval 208 ms GEMUSE QRS Duration 88 ms GEMUSE Q-T Interval 398 ms GEMUSE QTc 423 ms GEMUSE P Wave [place] 72 degrees GEMUSE R [place] 55 degrees GEMUSE T [place] 64 degrees GEMUSE ECG Interpretation Normal sinus rhythm Normal ECG When compared with ECG of 13-MAR-2025 10:04, No significant change was found GEMUSE 09/25/2025 9:45 AM EST us Gabrielle PAGE ECG ORDERABLES Final Result GEMUSE * (ABNORMAL) TRANSTHORACIC ECHOCARDIOGRAM (TTE) COMPLETE (09/12/2025 11:50 AM EDT) Left Atrium Minor Amston 6.7 cm CV PACS Left Atrium Major Amston 6.2 cm CV PACS LA Area Sys (A2C) 26 cm2 CV PACS LA Area Sys (A4C) 23 cm2 CV PACS LA Volume (BP) 77 mL CV PACS RA Area 17.7 cm2 CV PACS RA 2D Volume 49 mL CV PACS AV Regurgitation PHT 350 ms CV PACS AR Max Velocity 4.5 m/s CV PACS AV Regurgitant Volume 77 mmHg CV PACS AV Peak Candido 1.9 m/s CV PACS AV Peak Gradient 15 mmHg CV PACS AV Mean Gradient 7 mmHg CV PACS Ao VTI 42.5 cm CV PACS AV Area Continuity Equation 3.9 cm2 CV PACS AV Area Peak Velocity 2.5 cm2 CV PACS Aortic Sinus Valsalva 4.4 cm CV PACS Ascending Aorta 4.0 cm CV PACS IVSD 1.2(A) 0.6 - 1.0 cm CV PACS LVIDD 4.6 4.2 - 5.8 cm CV PACS LVIDS 3.2 2.5 - 4.0 cm CV PACS LVOT Diameter 2.4 cm CV PACS LVOT Mean Candido 1.1 m/s CV PACS LVOT Mean Grad 6 mmHg CV PACS LVOT Peak VTI 36.5 cm CV PACS LVOT Peak Candido 1.7 m/s CV PACS LVOT Peak Gradient 12 mmHg CV PACS LVPWD 1.1(A) 0.6 - 1.0 cm CV PACS MV E' Tissue Velocity Lateral 10 cm/s CV PACS MV E' Tissue Velocity Septal 8 cm/s CV PACS LVOT Area 4.5 cm2 CV PACS LVOT Stroke Volume 165 mL CV PACS E Wave Deceleration Time 201 119 - 242 ms CV PACS MV Peak A Candido 0.90 m/s CV PACS MV Peak E Cand[place] 1.20 m/s CV PACS MV Mean Gradient 3 mmHg CV PACS MV VTI 38.6 cm CV PACS Mitral Valve Max Velocity 1.3 m/s CV PACS MV Peak Gradient 7 mmHg CV PACS MV Area Continuity Equation 4.3 cm2 CV PACS PV Acceleration Time 60 ms CV PACS PV Acceleration Time 53 ms CV PACS PV Acceleration Time 57 ms CV PACS RV Diastolic Basal Dimension 3.7 2.5 - 4.1 cm CV PACS TR Peak Velocity 2.20 m/s CV PACS TR Peak Gradient 20 mmHg CV PACS E/E' Ratio Septal 15 CV PACS E/E' Ratio Averaged 14 CV PACS Relative Wall Thickness ratio 0.50(A) 0.24 - 0.42 CV PACS LVOT:AV VTI Index 0.86 CV PACS FS 30 % CV PACS LV Mass 2D 198 96 - 200 g CV PACS MV VTI:LVOT VTI ratio 1.1 CV PACS LVOT flow 497 mL/s CV PACS AV Velocity Ratio 0.88 CV PACS E/A Ratio 1.3 0.8 - 2.0 CV PACS E/E' Ratio Lateral 12 CV PACS LVOT Stroke Index 0 mL/m2 CV PACS Ascending Aorta Index 1.72 cm/m2 CV PACS RA 2D Volume Index 21 18 - 32 mL/m2 CV PACS ALEJANDRO Index (VTI) 1.67 cm2/m2 CV PACS ALEJANDRO Index (Pk Candido) 1.08 cm2/m2 CV PACS LVIDD Index 1.98 cm/m2 CV PACS LVIDS Index 1.38 cm/m2 CV PACS LA Volume Index (BP) 31 mL/m2 CV PACS LV Mass Index 2D 83 50 - 102 g/m2 CV PACS BSA 2.41 m2 CV PACS RA Major Amston 5.1 cm CV PACS RA Major Amston Index 2.2 2.1 - 2.7 cm/m2 CV PACS MV PHT 58 ms CV PACS AV Area 2D 4.0 cm2 CV PACS ALEJANDRO Index (2D) 1.72 cm2/m2 CV PACS AV Area Index 1.6 CV PACS Right Ventricular Peak Systolic Pressure 22 mmHg CV PACS Est. RA Pressure 3 mmHg CV PACS Anatomical Region Laterality Modality Ultrasound Narrative 09/26/2025 3:51 PM EST Left ventricle cavity size is normal. There is mild, concentric left ventricular hypertrophy. There is normal left ventricular regional wall motion. Left ventricular systolic function is in the normal range with an ejection fraction of 60-65%. There is no hemodynamically significant valve disease. Mild valvular abnormalities as below. The Sinus of Valsalva is dilated (4.4 cm). The ascending aorta is dilated (4.0 cm). There is normal left ventricular diastolic function. There is normal pulmonary artery systolic pressure. Compared to prior echocardiogram from 07/20/2023, findings are unchanged. Left Ventricle Left ventricle cavity size is normal. There is mild concentric hypertrophy. Systolic function is normal with an ejection fraction of 60-65%. There are no regional LV wall motion abnormalities. There is no diastolic dysfunction and normal left atrial pressure. Right Ventricle Right ventricle cavity appears normal. Systolic function appears to be normal. Left Atrium Left atrium cavity size is normal. Left atrial cavity is at upper limits of normal. Right Atrium Right atrium cavity is normal. IVC/SVC Inferior vena cava structure is normal. RA pressures is estimated to be 3 mmHg (IVC diameter <21 mm and decreases >50% during inspiration). Mitral Valve The leaflets are mildly thickened. There is mild annular calcification. There is mild regurgitation by doppler interrogation. There is no evidence of mitral valve stenosis. Tricuspid Valve Tricuspid valve structure is normal. There is trace regurgitation. There is no evidence of tricuspid valve stenosis. The right ventricular systolic pressure is normal. Estimated RA pressure is 3 mmHg. The RVSP is estimated at 22 mmHg. Aortic Valve The aortic valve is trileaflet. The leaflets are mildly thickened. There is mild regurgitation. There is no evidence of aortic valve stenosis. Pulmonic Valve Visualized portions of the pulmonic valve appear normal. No significant pulmonic valve regurgitation. There is no evidence of pulmonic valve stenosis. Ascending Aorta The Sinus of Valsalva is (4.4 cm). The ascending aorta is (4.0 cm). Pericardium Pericardium appears normal. There is no pericardial effusion. Study Details Overall the study quality was adequate. Wall Scoring Baseline Score Index: 1.00 The left ventricular wall motion is normal. Gabrielle PAGE CV ECHO PROCEDURES Final Result from Last 3 Months Insurance MEDICARE [facility] Care Teams Help Desk Support Specialist Relationship Specialty Start Date End Date Ronal Agosto MD [address] [place] [address] Dr [address] [place] PCP - General 07/15/17
[2025-10-14 10:21] LABS: Appearance Urine Clear; Glucose Urine UA Negative (Negative); PH 6.0 (5.0-9.0); Specific Gravity - Urine 1.015 (1.005-1.025)
[2025-10-14 10:34] LABS: MANUAL DIFF FLAG NO
[2025-10-14 10:41] LABS: Hematocrit 40.5 % (42.0-52.0); Hemoglobin 13.2 g/dl (14.0-18.0); Imm Gran Abs Auto 0.04 X10*3/uL (0.00-0.03); Imm Gran Pct Auto 0.7 % (0.0-0.4); Lymphocytes Absolute Auto 1.1 X10*3/uL (1.2-4.9); Mean Corpuscular HGB Conc 32.6 g/dl (31.0-36.0); Mean Corpuscular Hemoglobin 31.9 pg (27.0-33.0); Mean Corpuscular Volume 97.8 fL (80.0-98.0); NRBC Abs Auto 0.000 X10*3/uL (0.0-0.012); NRBC Pct Auto 0.0 /100WBC (0.0-0.2); Platelet Count 245 X10*3/uL (160-400); Red Blood Count 4.14 X10*6/uL (4.60-5.80); White Blood Count 5.9 X10*3/uL (4.8-10.8)
[2025-10-14 11:47] LABS: Alanine Aminotransferase 12 U/L (0-40); Albumin Level 4.2 g/dL (3.5-5.0); Alkaline Phosphatase 37 U/L (39-117); Anion Gap 14 (12-20); Aspartate Amino Transferase 26 U/L (5-37); Blood Urea Nitrogen 16 mg/dL (9-16); Calcium 8.8 mg/dL (8.4-10.2); Carbon Dioxide 23 mmol/L (22-29); Chloride 108 mmol/L (96-108); Cholesterol 157 mg/dL (<200); Estimated Glomerular Filt Rate > 60; HDL Cholesterol 37 mg/dL (>40); Potassium 4.9 mmol/L (3.3-5.1); Sodium 140 mmol/L (135-145); Total Protein 7.0 g/dL (6.5-8.0); Triglycerides 210 mg/dL (<150)
[2025-10-14 13:16] LABS: Free T4 (Free Thyroxine) 0.96 ng/dL (0.71-1.85)
== END 2025-10-14 06:55 | disposition home or self-care (01) ==
LOC: HO.HMGCLDS 06:54
PROVIDERS: PCP Internal Medicine; Visit Provider Internal Medicine
DX: R30.0 Dysuria (principal); E78.00 Pure hypercholesterolemia, unspecified; E55.9 Vitamin D deficiency, unspecified; D64.9 Anemia, unspecified
CPT/HCPCS: 36415; 80053; 80061; 81003; 82306; 84439; 84443; 85025

== ENCOUNTER 2025-10-17 09:25 | Outpatient (AMB) | payer MEDICARE, SELFPAY ==
--- OUTSIDE RECORDS SUMMARY | 2025-06-05 02:30 | XMS_ITS ---
Author Organization [facility] Address [address] [place] [address] Care Team Providers Care Site Safety Representative Name Role Phone Ronal Agosto MD Primary Care Provider UnaRasta Desai [phone] REASON FOR VISIT screening Encounters Encounter Location Date Provider Diagnosis [facility] Out[facility] [address] [place] [phone] 06/05/2025 Rasta Sorto Plan Of Treatment No Information Progress Notes * PUSHPA CLEVELANDDOB:1950 (75 yo M)Acc No.[id number]:06/05/2025 COLON WITH MAC Patient: PUSHPA CARRASQUILLO Provider: Juwan Sorto MD :1950 A ge:74 Y S ex:Male Date:06/05/2025 Address:[address] [place], [place] [phone] Pcp:Ronal Agosto MD Subjective: * Chief Complaints: * S creening Billing Information: * Procedure Codes: * The named appointment provid er may or may not be the originator of this progress note, and it is not deemed complete until electronically signed by the appointment provider. Sign off status: Pending * Provider: Juwan Sorto MD Date: 0 06/05/2025 Generated for Apollo miranda/Fagilbertog/eTransmitting on: 1 12/18/2024 10:41 AM EST
--- NOTE | 2025-10-17 09:40 | A.OFFPC_ITS ---
Vital Signs 10/17/25 09:41 Height 5 ft 8.5 in Weight 267 lb 2 oz BMI 40.0 BP 118/76 Blood Pressure Location Lt brachial Position Sitting Pulse 67 Pulse Source Pulse Oximeter Pulse Oximetry (%) 98 Oxygen Delivery Method Room Air Intake Visit Reasons: hyperlipidemia, HTN, PAF Ppap Coordinator Required: No Accompanied by: Self / Same As Patient Allergies No Known Allergies Allergy (Verified 10/17/25 09:58) Medication List - Last Reconciled 10/17/25 by Ronal Agosto MD atorvastatin 10 mg PO DAILY diltiazem HCl CD 120 mg PO DAILY fenofibrate nanocrystallized 145 mg PO DAILY 90 days furosemide 20 mg PO DAILY lidocaine HCl 2% (Lidocaine Viscous) 1 appl mucous membrane BID PRN lorazepam 0.5 mg PO BID PRN 30 days losartan 100 mg PO DAILY omeprazole 20 mg PO DAILY 90 days rivaroxaban (Xarelto) 20 mg PO DAILY sildenafil 50 mg PO DAILY PRN triamcinolone acetonide 0.5% 1 appl topical BID zolpidem 10 mg PO BEDTIME PRN 30 days Tobacco use date assessed: 10/17/25 Last assessed Fall Risk: 10/17/25 Dental Screening Dental Screen Date: 10/17/25 Did you have a dental visit in the last 12 months?: Yes Did you have a dental problem in the last 6 months where you did not have access to dental care?: No Was dental information given to patient?: Patient has dentist HPI hyperlipidemia, HTN, PAF HPI Details Patient comes in today for his follow up visit States that he feels okay He denies any headaches or dizziness Denies any chest pains, no SOB No nausea/vomiting, no abdominal pain No change in bowel habits noted He had his follow up labs done a few days ago - to discuss his results [facility] Medical History PAF (paroxysmal atrial fibrillation) HFrEF (heart failure with reduced ejection fraction) Cardiomyopathy First degree AV block Aortic root dilatation Daily consumption of alcohol JUAN JOSE (obstructive sleep apnea) HLD (hyperlipidemia) HTN (hypertension) Hiatal hernia Paroxysmal atrial fibrillation Obesity (BMI 30-39.9) Depression Anxiety Insomnia Iron deficiency anemia Vitamin D deficiency GERD without esophagitis Pure hypercholesterolemia Benign essential hypertension GERD (gastroesophageal reflux disease) Surgical History History of vocal cord polypectomy Hx of tonsillectomy History of esophagogastroduodenoscopy (EGD) (2002) History of cardiac ablation for atrial fibrillation History of total right knee replacement H/O right knee surgery History of arthroscopic surgery of shoulder (~02/01/22) History of shoulder surgery History of colonoscopy Family History Father Lung cancer Mother Afib Social History Housing: House Are you a primary nonfarm animal caretaker to a significant other at home: No Do you presently have visiting nurse or other home services: No Alcohol intake: current Alcohol intake frequency: 3 or more drinks per day Alcohol type: beer Patient Tobacco Use Status: Former Tobacco user e-Cigarette/Vaping Use: Never Used Second Hand Smoke Exposure: Yes service: No Current occupational status: employed Cognitive needs: No Hearing needs: No Vision needs: No Questionnaire PHQ-9 Over the last 2 weeks, how often have you been bothered by any of the following problems? 1. Little interest or pleasure in doing things: not at all 2. Feeling down, depressed, or hopeless: not at all 3. Trouble falling or staying asleep, or sleeping too much: not at all 4. Feeling tired or having little energy: not at all 5. Poor appetite or overeating: not at all 6. Feeling bad about yourself - or that you are a failure or have let yourself or your family down: not at all 7. Trouble concentrating on things, such as reading the newspaper or watching television: not at all 8. Moving or speaking so slowly that other people could have noticed. Or the opposite - being so fidgety or restless that you have been moving around a lot more than usual: not at all 9. Thoughts that you would be better off or of hurting yourself in some way: not at all Total score: 0 Depression Screening Interpretation: Negative Depression Screening Done: Yes 50597 - PHQ-9 Billing: Yes Source: Developed by Drs. Rasta Ramachandran, Gisela Booth, Carlos Eduardo Delgado and colleagues, with an educational alvaro from [employer] Thrive Questionnaire Date Thrive assessed: 10/17/25 I am a: Patient What is your living situation today?: I have a steady place to live Within the past 12 months, did the food you bought not last and you didn't have the money to get more?: I choose not to answer this question Within the past 12 months, did you worry whether your food would run out before you got money to buy more?: I choose not to answer this question Do you have trouble paying for medicines?: No Do you have trouble getting transportation to medical appointments?: No Do you have trouble paying your heating and electricity bill?: No Do you have trouble taking care of your child, family member or friend?: No Do you have trouble with day-to-day activities such as bathing, preparing meals, shopping, managing finances, etc.?: No Are you currently unemployed and looking for a job?: No Are you interested in more education?: No Please select the resources that you would like help with: None Currently or been in a relationship where the following occur: No concerns reported THRIVE Score: 0 AUDIT C Alcohol Use Questionnaire (AUDIT-C) 1. How often do you have a drink containing alcohol?: 4 or more times a week 2. How many drinks containing alcohol do you have on a typical day when you are drinking?: 3 or 4 3. How often do you have six or more drinks on one occasion?: Monthly Total Score: 7 Score Reviewed/Action Taken: Yes ALLA-7 AMB Questionnaire ALLA-7 Date ALLA - 7 assessed: 10/17/25 Feeling nervous, anxious, or on edge: 0 = Not at all Not being able to stop or control worryin = Not at all Worrying too much about different things: 0 = Not at all Trouble relaxin = Not at all Being so restless that it is hard to sit still: 0 = Not at all Becoming easily annoyed or irritable: 0 = Not at all Feeling afraid as if something awful might happen: 0 = Not at all Total ALLA-7 score (0-4 normal; 5-9 mild; 10-14 moderate; 15-21 severe): 0 Source: Developed by Drs. Rasta Ramachandran, Gisela Booth, Carlos Eduardo Delgado and colleagues, with an educational alvaro from [employer] Review of Systems Const Denies chills, Denies fatigue, Denies fever(s) and Denies headache(s) ENT Denies dysphagia, Denies dizziness, Denies otalgia, Denies headache(s), Denies neck pain, Denies odynophagia and Denies sore throat Card Denies chest pain, Denies irregular heart rhythm, Denies palpitations and Denies dyspnea Resp Denies chest congestion, Denies cough and Denies dyspnea GI Denies abdominal pain, Denies constipation, Denies dysphagia, Denies heartburn, Denies diarrhea, Denies nausea, Denies odynophagia and Denies vomiting Denies difficulty urinating, Reports erectile dysfunction (lately), Denies dysuria, Denies nocturia and Denies urinary frequency Musc Denies back pain, Denies arthralgias and Denies neck pain Skin/Breast Denies rash Neuro Denies dizziness and Denies headache(s) Endo Denies fatigue and Denies palpitations Physical exam (Primary Care) Vital Signs: Last Vital Signs Pulse 67 10/17/25 09:41 BP 118/76 10/17/25 09:41 Pulse Ox 98 10/17/25 09:41 Oxygen Delivery Method Room Air 10/17/25 09:41 BMI result Body Mass Index 40.0 Tobacco/Smoking Status: Tobacco use Status Tobacco use date assessed 10/17/25 10/17/25 09:44 Patient Tobacco Use Status Former Tobacco user 10/17/25 09:44 e-Cigarette/Vaping Use Never Used 10/17/25 09:44 PHQ-9: PHQ-9 Score PHQ-9: Total score 0 10/17/25 09:44 Depression Screening Interpretation: Negative Thrive Assessment: Date of Thrive Assessment Date Thrive assessed 10/17/25 10/17/25 09:44 Currently or been in a relationship where the following occur: No concerns reported Const General: no acute distress and alert HENMT Ears: TM's normal bilaterally and EAC's normal Throat: Yes posterior oropharynx normal and Yes tonsils normal (no TP congestion noted) Neck Neck: Yes supple and No lymphadenopathy Thyroid: Thyroid normal Resp Auscultation: clear to auscultation bilaterally, no rales and no wheezes Cardio Rate: regular rate Rhythm: regular rhythm Heart sounds: no murmurs GI Palpation (GI): Soft to palpation and nontender Auscultation: normal bowel sounds General: Yes no CVA tenderness Back/Spine/Pelvis Back: no CVA tenderness Thoracic/Lumbar Spine: No lumbar spinal tenderness Skin Rashes: no rashes Extrem General: Yes no clubbing, cyanosis or edema Results Reviewed Results Reviewed: Laboratory Tests 10/14/25 10/14/25 07:07 07:15 WBC 5.9 Hgb 13.2 L Hct 40.5 L Plt Count 245 Sodium 140 Potassium 4.9 Creatinine 1.04 Estimated GFR > 60 Fasting Glucose 87 Calcium 8.8 AST 26 ALT 12 Triglycerides 210 H Cholesterol 157 LDL Cholesterol, Calc 78 HDL Cholesterol 37 L 25-OH Vitamin D Total 36.6 TSH 4.89 H Free T4 0.96 Ur Specific [place] 1.015 Urine Protein Negative Urine Glucose (UA) Negative Urine Blood Negative Urine Nitrite Negative Ur Leukocyte Esterase Negative Coding Level of Care Code Est Pt Level 4 (33018) Diagnoses Pure hypercholesterolemia E78.00 Benign essential hypertension I10 Paroxysmal atrial fibrillation I48.0 GERD without esophagitis K21.9 Post-traumatic osteoarthritis of right knee M17.31 Osteoarthritis type: post-traumatic Vitamin D deficiency E55.9 Iron deficiency anemia secondary to inadequate dietary iron intake D50.8 Iron deficiency anemia type: inadequate dietary iron intake Elevated TSH R79.89 Pruritic erythematous rash L29.8 Erectile dysfunction, unspecified erectile dysfunction type N52.9 Erectile dysfunction type: unspecified Insomnia, unspecified type G47.00 Insomnia type: unspecified Anxiety F41.9 Episode of recurrent major depressive disorder, unspecified depression episode severity F33.9 Depression Type: major depressive disorder Major depression recurrence: recurrent Active/Remission status: currently active Major depression episode severity: unspecified Obesity (BMI 30-39.9) E66.9 Additional Codes PHQ-9 - 26242 - PHQ-9 Billing: Yes ([id number]) Assessment & Plan Assessment & Plan (1) Pure hypercholesterolemia: Code(s): E78.00 - Pure hypercholesterolemia, unspecified Category: Medical Plan: Results of his labs done a few days ago reviewed and discussed with patient - his cholesterol levels have improved from previous Reinforced low cholesterol diet Continue Atorvastatin 10 mg QD and Fenofibrate 145 mg QD Will recheck his labs and fasting lipids in 4 months for follow up (2) Benign essential hypertension: Code(s): I10 - Essential (primary) hypertension Category: Medical Plan: Reinforced low sodium diet - goal is systolic BP of at least 130 mm or less Continue Losartan 100 mg QD; he is also on Diltiazem ER 120 mg QD, which helps with both his HTN and PAF (3) Paroxysmal atrial fibrillation: Comment: S/P cardioversion with Dr. Chen at [facility] Code(s): I48.0 - Paroxysmal atrial fibrillation Category: Medical Plan: Patient currently remains in sinus rhythm on Diltiazem ER 120 mg QD and Sotalol 160 mg BID States that he has not had any further episodes/sensation of palpitations since his 2nd cardiac ablation on 06/11/[address] Chen at [facility] Continue Xarelto 20 mg QD for thromboembolism prophylaxis (4) GERD without esophagitis: Code(s): K21.9 - Gastro-esophageal reflux disease without esophagitis Category: Medical Plan: Dietary restrictions reinforced Continue Omeprazole 20 mg QD (5) Osteoarthritis of right knee: Code(s): M17.11 - Unilateral primary osteoarthritis, right knee Category: Medical Qualifiers: Osteoarthritis type: post-traumatic Qualified Code(s): M17.31 - Unilateral post-traumatic osteoarthritis, right knee Plan: S/P total right knee arthroplasty on 11/29/2023 with [facility] He also had arthroscopic meniscal surgery / repair on 09/08/2022 and completed PT for his knee - states that he has been doing well since Follow up with [facility] as scheduled (6) Vitamin D deficiency: Code(s): E55.9 - Vitamin D deficiency, unspecified Category: Medical Plan: Continue Vitamin D3 2000 units QD (7) Iron deficiency anemia: Code(s): D50.9 - Iron deficiency anemia, unspecified Category: Medical Qualifiers: Iron deficiency anemia type: inadequate dietary iron intake Qualified Code(s): D50.8 - Other iron deficiency anemias Plan: Stable Continue Feosol 200 mg QD Will continue to monitor his CBC regularly (8) Elevated TSH: Code(s): R79.89 - Other specified abnormal findings of blood chemistry Category: Medical Plan: His TSH remains slightly elevated but free T4 is normal Patient is clinically euthyroid Will continue to monitor his TFTs regularly (9) Pruritic erythematous rash: Code(s): L29.8 - Other pruritus Category: Medical Plan: Continue Triamcinolone acetonide 0.5% cream BID PRN (10) Erectile dysfunction: Code(s): N52.9 - Male erectile dysfunction, unspecified Category: Medical Qualifiers: Erectile dysfunction type: unspecified Qualified Code(s): N52.9 - Male erectile dysfunction, unspecified Plan: Continue Sildenafil 50 mg QD PRN (11) Insomnia: Code(s): G47.00 - Insomnia, unspecified Category: Medical Qualifiers: Insomnia type: unspecified Qualified Code(s): G47.00 - Insomnia, unspecified Plan: Sleep hygiene reinforced Continue Zolpidem 10 mg Q HS PRN (12) Anxiety: Code(s): F41.9 - Anxiety disorder, unspecified Category: Medical Plan: Continue Lorazepam 0.5 mg BID PRN (13) Depression: Code(s): F32.9 - Major depressive disorder, single episode, unspecified Category: Medical Qualifiers: Depression Type: major depressive disorder Major depression recurrence: recurrent Active/Remission status: currently active Major depression episode severity: unspecified Qualified Code(s): F33.9 - Major depressive disorder, recurrent, unspecified Plan: Continue Escitalopram 10 mg QD He has not seen psychiatry in a while now - feels that he is doing well on his current Rx and does not need to see psychiatry for now (14) Obesity (BMI 30-39.9): Code(s): E66.9 - Obesity, unspecified Category: Medical Plan: Reinforced diet/exercise as tolerated/lose weight Plan Follow up in 4 months Orders: Orders Vitamin D 25-OH Total 4 Months E55.9 - Vitamin D deficiency, unspecified Free T4 (Free Thyroxine) 4 Months E03.9 - Hypothyroidism, unspecified, R79.89 - Other specified abnormal findings of blood chemistry Complete Blood Count Auto Diff 4 Months D64.9 - Anemia, unspecified Comprehensive [place]. Panel Fast 4 Months E78.00 - Pure hypercholesterolemia, unspecified Lipid Panel 4 Months E78.00 - Pure hypercholesterolemia, unspecified UA CC w/rflx Micro + Cult 4 Months R30.0 - Dysuria Thyroid Stimulating Hormone 4 Months E03.9 - Hypothyroidism, unspecified, R79.89 - Other specified abnormal findings of blood chemistry
[2025-10-17 09:41] VITALS: BP 118/76; PULSE 67; O2SAT 98; BMI 40.0
--- OUTSIDE RECORDS SUMMARY | 2025-10-17 10:41 | XMS_ITS | Clinical Summary ---
Author Organization [address] [place] [address] [place] [phone] Phone Care Team Providers Care Gelatin Dynamite Packing Operator Name Role Phone Ronal Agosto MD Primary Care Provider + [phone] Allergies No known active allergies Medications atorvastatin [...] Department Care Team Description 09/26/2025 Results Follow-Up [facility] Cardiology [facility] [address] [place] [address] Gabrielle Verduzco PA 09/25/2025 9:40 AM EST Office Visit [facility] [address] [place] [address] Gabrielle Verduzco PA Atrial fibrillation with RVR (CMS/HCC V24, CMS/HCC V28) (Primary Dx); Aneurysm of ascending aorta without rupture ([facility]/HCC V24); Primary hypertension 09/12/2025 11:00 AM EDT Ancillary Procedure [facility] - [address] [place] [address] Atrial fibrillation with RVR (CMS/HCC V24, CMS/HCC [...] Procedure Name Priority Date/Time Associated Diagnosis Comments EXTERNAL CLINICAL LAB Routine 10/14/2025 11:17 AM EST ECG 12-LEAD Routine 09/25/2025 10:01 AM EST Atrial fibrillation with RVR (CMS/HCC V24, CMS/HCC V28) TRANSTHORACIC ECHOCARDIOGRAM (TTE) COMPLETE Routine 09/12/2025 11:50 AM EDT Atrial fibrillation with RVR (CMS/HCC V24, CMS/HCC V28) Aneurysm of ascending aorta without rupture (CMS/HCC V24) PAF (paroxysmal atrial fibrillation) (CMS/HCC V24, CMS/HCC V28) Primary hypertension SOB (shortness of breath) from Last 3 Months Results * External clinical lab (10/14/2025 11:17 AM EST) Historical Provider MD LAB BLOOD ORDERABLES Adina kacy Result * ECG 12 lead (09/25/2025 10:01 AM EST) Ventricular Rate ECG 68 BPM GEMUSE Atrial Rate 68 BPM GEMUSE P-R Interval 208 ms GEMUSE QRS Duration 88 ms GEMUSE Q-T Interval 398 ms GEMUSE QTc 423 ms GEMUSE P Wave [place] 72 degrees GEMUSE R [place] 55 degrees GEMUSE T [place] 64 degrees GEMUSE ECG Interpretation Normal sinus rhythm Normal ECG When compared with ECG of 13-MAR-2025 10:04, No significant change was found GEMUSE 09/25/2025 9:45 AM EST us Gabrielle PAGE ECG ORDERABLES Final Result GEMUSE * (ABNORMAL) TRANSTHORACIC ECHOCARDIOGRAM (TTE) COMPLETE (09/12/2025 11:50 AM EDT) Left Atrium Minor [place]imer 6.7 cm CV PACS Left Atrium Major Larimer 6.2 cm CV PACS LA Area Sys [...] BSA 2.41 m2 CV PACS RA Major [place]imer 5.1 cm CV PACS RA Major [place] Index 2.2 2.1 - 2.7 cm/m2 CV [...] Result from Last 3 Months Insurance [facility]ARE [facility] Care Teams Gelatin Dynamite Packing Operator Relationship Specialty Start Date End Date Ronal Agosto MD [address] [place] [address] [address] [place] PCP - General 07/15/17
--- OUTSIDE RECORDS SUMMARY | 2025-10-17 10:41 | XMS_ITS | Patient Health Record ---
Author Organization [facility] Address [address] [place] [address] Care Team Providers Care Eye Glass Frame Polisher Name Role Phone Surendra SPENCE, Cullen Primary Care Provider Rasta Allen Unavailable [phone] Allergies No Known Allergies Results Component Value Reference Range Notes Pathology (Not yet reviewed by provider) Interpretation: Performing Lab:[facility], [address] [place] [id number] Notes/Report: Reason For Referral No Information Medications [...] 20 MG Tablet TAKE 1 TABLET BY [facility] EVERY DAY Oral; Duration: 90 Days Active Social History Social History Additional Details Category Social Info Options Details Miscellaneous: Marital status: Occupation: [employer]/ retired may 13 2024 Section Notes: Nonsmoker > 10 yrs, 3-4 beer s QD Nonsmoker > 10 yrs, 3-4 beer s QD Problems Problem Type SNOMED Code ICD Code Onset Dates Problem Status W/U Status Risk Notes Problem Colon cancer screening (093294855) Colon cancer screening (V76.51) Active confirmed Problem Gastroesophageal reflux disease (816586898) GERD (gastroesophageal reflux disease) (530.81) Active confirmed Problem Colon cancer screening (889374452) Colon cancer screening (Z12.11) Active confirmed Problem Long-term current use of anticoagulant (765019598) FDC (current) use of anticoagulants (Z79.01) Active confirmed Problem Preprocedural examination (670836044193909) Preprocedural examination (Z01.818) Active confirmed Vital Signs Blood pressure diastolic 11 mm Hg 02/28/2025 Height 68.5 in 02/28/2025 Blood pressure systolic 111 mm Hg 02/28/2025 Weight 271 lbs 02/28/2025 BMI 40.6 kg/m2 02/28/2025 Procedures Procedure Date Ordered Date Performed Result Body Sit e COLONOSCOPY 02/28/2025 N/A Encounters Encounter Location Date Provider Diagnosis [facility] Outpatient [address] [place], [place] [id number] 06/05/2025 Rasta Sorto [facility] [address] [place] [address] 02/28/2025 Rasta Sorto Colon cancer screeni ng Z12.11 ; rat exterminator (current) use of anticoagulants Z79.01 and Preprocedural [...] keep you advised of his progress. 02/28/2025 rat exterminator (current) use of anticoagulants (ICD-10 - Z79.01) [...] OF [place] [address] [place] [id number] [place] Self - patient is the insured 8 [employer] ATTN CLAIMS [address] [place] [address] [id number] [place] Self - patient is the insured Medical (General) History Medical History History ICD Code GERD--EGD in 08/2003-small HH, no esopha gitis nor Estevez's HTN Anxiety Hyperlipidemia Denies SD,DM,CVA,Lung disease,renal dise ase Colonoscopy in 08/2003--no polyps, melan osis coli, internal hemorrhoids Afib-0n Xarelto--s/p 2 ablations--claudine Chen Negative screening colonoscopy in 2014 Surgical History Surgery Date(Month/Year) tonsils vocal cord polyp knee right replacement 11/2023 shoulder surgery x 2 on the right
--- OUTSIDE RECORDS SUMMARY | 2025-10-17 10:41 | XMS_ITS | Encounter Summary ---
Author Organization [facility] Address [address] [place] [address] Care Team Providers Care Health Program Director Name Role Phone Ronal Agosto MD Primary Care Provider + [phone] Encounter Details Date Type Department Care Team (Late st Contact Info) Description 09/26/2025 Results Follow-Up [facility] [address] [facility] [address] [place] [id number] Gabrielle Verduzco PA [facility] [address] [place] [id number] Social History Tobacco Use Types Packs/Day Years [...] on filedocumented in this encounter Care Teams Health Program Director Relationship Specialty Start Date End Date Ronal Agosto MD [address] [place] [address] [address] [place] PCP - General 07/15/17 documented as of this encounter
== END 2025-10-17 10:06 | disposition home or self-care (01) ==
LOC: HO.HMCH 09:25
PROVIDERS: PCP Internal Medicine; Visit Provider Internal Medicine
DX: I48.0 Paroxysmal atrial fibrillation (principal); E78.00 Pure hypercholesterolemia, unspecified; E66.9 Obesity, unspecified; Z68.41 Body mass index [BMI] 40.0-44.9, adult; I10 Essential (primary) hypertension; K21.9 Gastro-esophageal reflux disease without esophagitis; M17.31 Unilateral post-traumatic osteoarthritis, right knee; E55.9 Vitamin D deficiency, unspecified; D50.8 Other iron deficiency anemias; R79.89 Other specified abnormal findings of blood chemistry; N52.9 Male erectile dysfunction, unspecified; L29.8 Other pruritus; G47.00 Insomnia, unspecified; F41.9 Anxiety disorder, unspecified; F33.9 Major depressive disorder, recurrent, unspecified

== ENCOUNTER → 2025-10-17 09:25 | Outpatient (BNVA) | payer MEDICARE, SELFPAY | PROVIDERS: PCP Internal Medicine; Visit Provider Internal Medicine | DX: E78.00 Pure hypercholesterolemia, unspecified (principal); I10 Essential (primary) hypertension; I48.0 Paroxysmal atrial fibrillation; K21.9 Gastro-esophageal reflux disease without esophagitis; M17.31 Unilateral post-traumatic osteoarthritis, right knee; E55.9 Vitamin D deficiency, unspecified; D50.8 Other iron deficiency anemias; R79.89 Other specified abnormal findings of blood chemistry; L29.89 Other pruritus; N52.9 Male erectile dysfunction, unspecified; G47.00 Insomnia, unspecified; F41.9 Anxiety disorder, unspecified; F33.9 Major depressive disorder, recurrent, unspecified; E66.9 Obesity, unspecified; Z68.41 Body mass index [BMI] 40.0-44.9, adult; Z71.3 Dietary counseling and surveillance | CPT/HCPCS: 96127; 99212 ==